=== PATIENT | female | born 1965 | race Caucasian/White ===

== ENCOUNTER 2019-12-11 10:29 | Emergency (ER) | payer BC, SELFPAY ==
[2019-12-11 10:34] VITALS: RESP 17; TEMP 36.5; BMI 25.8
--- NOTE | 2019-12-11 10:34 | ECG_ITS ---
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 Measurements Intervals [place] Rate: 107 P: 64 PA: 151 QRS: 25 QRSD: 91 T: 17 QT: 322 QTc: 431 Interpretive Statements SINUS TACHYCARDIA ABNORMAL RHYTHM ECG No previous ECG available for comparison Electronically Signed On 12-11-2019 19:40:07 CDT by Ana Luisa Morrow M.D. [email or web address] hospitalAdaptive [email or web address], Inc.[facility].[employer]/store/NU/[id number]/[email or web address]/[id number] f
--- NOTE | 2019-12-11 10:34 | XRR_ITS ---
PROCEDURE INFORMATION: Exam: XR Chest, 1 View Exam date and time: 12/11/2019 11:03 AM Age: 54 years old Clinical indication: Chest pain; Type not specified TECHNIQUE: Imaging protocol: XR of the chest Views: 1 view. COMPARISON: No relevant prior studies available. FINDINGS: Lungs: Hyperinflation and mild interstitial prominence. No acute airspace disease. Pleural space: No pleural effusion. Heart/Mediastinum: No cardiomegaly. Bones/joints: Mild degenerative change. XR/XR chest 1V portable [id number] IMPRESSION: Hyperinflation , without acute airspace or pleural disease.
[2019-12-11 11:11] LABS: Basophils % 0.8 %; Eosinophils # 0.1 10^3/uL (0.0-0.8); Eosinophils % 1.3 %; Hematocrit 40.3 % (37.0-47.0); Hemoglobin 13.4 g/dL (11.5-15.3); Lymphocytes # 1.6 10^3/uL (0.8-4.8); Lymphocytes % 31.2 %; Mean Corpuscular HGB Conc 33.3 g/dL (30.0-36.0); Mean Corpuscular Hemoglobin 33.8 pg (28.0-34.0); Mean Corpuscular Volume 101.5 fL (81-99); Mean Platelet Volume 10.2 fL (7.4-10.4); Monocytes # 0.6 10^3/uL (0.2-0.9); Monocytes % 12.1 %; Neutrophils # 2.84 10^3/uL (1.8-7.7); Neutrophils % 54.4 %; Nucleated Red Blood Cells % 0 %; Platelet Count 219 10^3/cmm (130-400); Red Blood Count 3.97 10^6/uL (4.1-5.3); White Blood Count 5.2 10^3/uL (4.0-10.0)
[2019-12-11 11:26] LABS: INR 0.86 (0.8-1.2)
[2019-12-11 11:31] LABS: Alanine Aminotransferase 19 U/L (0-33); Albumin Level 4.4 g/dL (3.5-5.2); Alkaline Phosphatase 121 IU/L (35-105); Aspartate Amino Transferase 46 U/L (0-32); Blood Urea Nitrogen 19 mg/dL (6-20); Calcium 9.8 mg/dL (8.5-10.5); Carbon Dioxide 26 mmol/L (22-29); Chloride 96 mmol/L (98-107); Globulin 2.8 g/dL (1.3-4.6); Glucose 128 mg/dL (65-115); Lipase 48 U/L (13-60); Osmolality Calculated 286 mOsm/kg (285-295); Sodium 136 mmol/L (136-145); Total Bilirubin 0.8 mg/dL (0.15-1.2); Total Protein 7.2 g/dL (6.6-8.7)
[2019-12-11 11:33] LABS: Troponin(5th) Baseline 7 ng/L (0-10)
[2019-12-11 11:35] LABS: Anion Gap 18.1 (5-19); Potassium 4.1 mmol/L (3.5-5.1)
--- NOTE | 2019-12-11 12:34 | ECG_ITS ---
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 Measurements Intervals [place] Rate: 93 P: 60 MS: 153 QRS: 20 QRSD: 93 T: 10 QT: 341 QTc: 425 Interpretive Statements SINUS RHYTHM Compared to ECG 12/11/2019 10:52:24 Sinus tachycardia no longer present Electronically Signed On 12-11-2019 19:52:39 CDT by Ana Luisa Morrow M.D. [email or web address]smer[facility] biloxiActivePathlicking memorial hospitalInnov[facility]/store/NU/[id number] f
[2019-12-11 13:48] LABS: Troponin 5 2HR 6.98 ng/L (0-10)
[2019-12-11 13:57] LABS: Troponin 5 2HR Delta -0.02 ABS# (0-10)
[2019-12-11 14:13] VITALS: BP 144/81; PULSE 96; RESP 18; O2SAT 98
--- NOTE | 2019-12-11 14:18 | ED_ITS ---
HPI - Chest Pain General: Chief Complaint: Chest Pain Stated Complaint: CP Time Seen by Provider: 12/11/19 10:33 History of Present Illness: HPI narrative: This patient is a 54-year-old female who has moved to the area within the last year or so. She has no medical records here. She presents with multiple complaints including chest pain, trouble breathing, tunnel vision. She feels that there is definitely something wrong with her. She was admitted once previously for chest pain and said she had a stress test that was normal. She does take blood pressure medication and an aspirin a day. She also takes allopurinol for gout. She has had a few surgeries but still has her gallbladder and appendix. She has never had a cardiac cath. MD complaint: chest pain Onset (ago): day(s) Timing of current episode: episodic Prior episodes: Yes Onset: during rest Pain radiation: none Severity: moderate Quality: tightness Relieving factors: nothing Exacerbating factors: nothing Associated symptoms: Reports dyspnea and nausea Review of Systems Eyes: Reports: change in vision (Tunnel vision) Resp: Reports: dyspnea GI: Reports: nausea Neuro: Reports: numbness in extremities (Right arm) and weakness in extremities (Right arm) [facility] ED PFSH: Medical History (Updated 12/11/19 @ 15:52 by Mariposa Lopez MD) Gout Hypertension Physical Exam Const: COMMON NORMALS: no acute distress, patient oriented x3, no limitations and alert GENERAL APPEARANCE: cooperative and comfortable HENMT: HEAD & SCALP: normal to inspection FACE & SINUS: normal facial exam Eye: GENERAL EYE: appearance normal, both eyes and all related structures Neck/C-Spine: COMMON NORMALS: supple, no meningeal signs and no JVD Chest: COMMONS NORMALS: normal inspection of the chest Resp: COMMON NORMALS: normal respiratory effort, No use of accessory muscles and clear to auscultation bilaterally AUSCULTATION: clear to auscultation bilaterally Cardio: COMMON NORMALS: no JVD, regular rate, regular rhythm and No murmurs present (Cardio) RATE: regular rate RHYTHM: regular rhythm GI: COMMON NORMALS: Normal to inspection, nondistended, normoactive bowel sounds present, Soft to palpation and non-tender INSPECTION: Yes normal to inspection AUSCULTATION: Yes normoactive bowel sounds PALPATION: Yes Soft to palpation Back/Pelvis: COMMON NORMALS: thoracic and lumbar spine normal to inspection Extremity: COMMON NORMALS: normal to inspection Neuro: COMMON NORMALS: patient oriented x3, moves all extremities, no focal motor deficits and no sensory deficits noted SENSORIUM/ORIENTATION: Yes alert MENINGEAL SIGNS: Yes no meningeal signs Psych: COMMON NORMALS: mental status grossly normal, cooperative and normal a ffect Skin: COMMON NORMALS: no rashes or lesions noted and turgor normal GENERAL SKIN EXAM: no rashes or lesions noted and turgor normal Course ED course: This patient presents with multiple vague complaints over the past couple of weeks. Her work-up is unremarkable. She does have a primary care physician here at [facility]. She has been seeing Randee Klein. She has not seen a pad tufter. We discussed that her work-up here was normal and I recommended that she follow-up with primary care and with cardiology. I gave her referral for cardiology. Vital Signs: Vital signs: Vital Signs Temperature 97.7 F 12/11/19 10:34 Pulse Rate 96 12/11/19 14:13 Respiratory Rate 18 12/11/19 14:13 Blood Pressure 144/81 12/11/19 14:13 Pulse Oximetry 98 12/11/19 14:13 MDM - Chest Pain Lab Data: Labs: Lab Results 12/11/19 12/11/19 12/11/19 Range/Units 11:04 11:04 11:04 WBC 5.2 (4.0-10.0) 10^3/ uL RBC 3.97 L (4.1-5.3) 10^6/u L Hgb 13.4 (11.5-15.3) g/dL Hct 40.3 (37.0-47.0) % MCV 101.5 H (81-99) fL MCH 33.8 (28.0-34.0) pg MCHC 33.3 (30.0-36.0) g/dL RDW 12.0 L (12.1-15.1) % Plt Count 219 (130-400) 10^3/c mm MPV 10.2 (7.4-10.4) fL Neut % (Auto) 54.4 % Lymph % (Auto) 31.2 % [place] % (Auto) 12.1 % Eos % (Auto) 1.3 % Baso % (Auto) 0.8 % Neut # (Auto) 2.84 (1.8-7.7) 10^3/u L Lymph # (Auto) 1.6 (0.8-4.8) 10^3/u L [place] # (Auto) 0.6 (0.2-0.9) 10^3/u L Eos # (Auto) 0.1 (0.0-0.8) 10^3/u L Baso # (Auto) 0.0 (0.0-0.1) 10^3/u L Nucleated RBC % (a uto) 0 % Nucleated RBCs # 0.0 /100WBC PT 11.90 L (12.1-14.9) SECO NDS INR 0.86 (0.8-1.2) Sodium 136 (136-145) mmol/L Potassium 4.1 (3.5-5.1) mmol/L Chloride 96 L (98-107) mmol/L Carbon Dioxide 26 (22-29) mmol/L Anion Gap 18.1 (5-19) BUN 19 (6-20) mg/dL Creatinine 0.9 (0.5-0.9) mg/dL GFR Calculation 65.0 L (90-130) mL/min Glucose 128 H (65-115) mg/dL Calculated Osmolal ity 286 (285-295) mOsm/k g Calcium 9.8 (8.5-10.5) mg/dL Total Bilirubin 0.8 (0.15-1.2) mg/dL AST 46 H (0-32) U/L ALT 19 (0-33) U/L Alkaline Phosphata se 121 H (35-105) IU/L Troponin T Baselin e (0-10) ng/L Troponin T 120 Min [place] (0-10) ng/L Delta Troponin T (0-10) ABS# Total Protein 7.2 (6.6-8.7) g/dL Albumin 4.4 (3.5-5.2) g/dL Globulin 2.8 (1.3-4.6) g/dL Lipase 48 (13-60) U/L 12/11/19 12/11/19 Range/Units 11:04 13:05 WBC (4.0-10.0) 10^3/ uL RBC (4.1-5.3) 10^6/u L Hgb (11.5-15.3) g/dL Hct (37.0-47.0) % MCV (81-99) fL MCH (28.0-34.0) pg MCHC (30.0-36.0) g/dL RDW (12.1-15.1) % Plt Count (130-400) 10^3/c mm MPV (7.4-10.4) fL Neut % (Auto) % Lymph % (Auto) % [place] % (Auto) % Eos % (Auto) % Baso % (Auto) % Neut # (Auto) (1.8-7.7) 10^3/u L Lymph # (Auto) (0.8-4.8) 10^3/u L [place] # (Auto) (0.2-0.9) 10^3/u L Eos # (Auto) (0.0-0.8) 10^3/u L Baso # (Auto) (0.0-0.1) 10^3/u L Nucleated RBC % (a uto) % Nucleated RBCs # /100WBC PT (12.1-14.9) SECO NDS INR (0.8-1.2) Sodium (136-145) mmol/L Potassium (3.5-5.1) mmol/L Chloride (98-107) mmol/L Carbon Dioxide (22-29) mmol/L Anion Gap (5-19) BUN (6-20) mg/dL Creatinine (0.5-0.9) mg/dL GFR Calculation (90-130) mL/min Glucose (65-115) mg/dL Calculated Osmolal ity (285-295) mOsm/k g Calcium (8.5-10.5) mg/dL Total Bilirubin (0.15-1.2) mg/dL AST (0-32) U/L ALT (0-33) U/L Alkaline Phosphata se (35-105) IU/L Troponin T Baselin e 7 (0-10) ng/L Troponin T 120 Min [place] 6.98 (0-10) ng/L Delta Troponin T -0.02 L (0-10) ABS# Total Protein (6.6-8.7) g/dL Albumin (3.5-5.2) g/dL Globulin (1.3-4.6) g/dL Lipase (13-60) U/L Discharge Plan Discharge Patient Disposition: Home Clinical Impression: Chest pain Qualifiers: Chest pain type: unspecified Qualified Code(s): R07.9 - Chest pain, unspecified Condition: Stable Prescriptions: No Action Multiple Vitamins Tablet 1 tab PO DAILY RF: 0 hydrochlorothiazide 50 mg tablet See Rx Instructions .ROUTE .COMPLEX RF: 0 metoprolol succinate 200 mg tablet extended release 24 hr 200 mg PO DAILY RF: 0 lisinopril 20 mg tablet 20 mg PO DAILY RF: 0 aspirin 81 mg Tablet,Chewable 81 mg PO DAILY RF: 0 allopurinol 300 mg tablet 300 mg PO DAILY RF: 0 escitalopram oxalate 10 mg tablet See Rx Instructions .ROUTE .COMPLEX RF: 0 Vitamin D3 125 mcg (5,000 unit) Tablet 125 mcg PO DAILY RF: 0 biotin 1 tab PO DAILY RF: 0 Discharge Orders: Discharge Order (Routine); Ordered 12/11/19 Ordered By: Mariposa Lopez Referrals: Randee Klein PA [Staff Physician] - 1 week Elvira Keita MD [Physician] - 2 weeks Discharge Diet: Usual diet Discharge Activity: Resume usual activity Patient Instructions: Chest Pain (ED) Activity Restrictions/Additional Instructions: Return to the emergency department for any new or worse symptoms. Follow-up with your primary care provider for further evaluation of your symptoms. We have also provided a referral to the pad tufter. 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
== END 2019-12-11 16:12 | disposition home or self-care (01) ==
PROVIDERS: Emergency Provider Emergency Medicine
DX: R07.9 Chest pain, unspecified (principal); Z79.82 Long term (current) use of aspirin; I10 Essential (primary) hypertension
CPT/HCPCS: 12345; 36415; 71045; 80053; 83690; 84484; 85025; 85610; 93005; 99283; 99284

== ENCOUNTER 2020-07-20 10:08 | Outpatient (CLI) | payer BC, SELFPAY ==
--- NOTE | 2020-07-20 10:18 | MM_ITS ---
WS: [id number] BILATERAL SCREENING DIGITAL MAMMOGRAM WITH CAD HISTORY: SCREENING COMPARISON: 12/13/2018 and 12/24/2017 Bilateral CC and MLO views submitted. Computer aided detection analyzed. Breast composition: There are scattered areas of fibroglandular density. No suspicious masses, microc alcifications or architectural distortion. MM/[place] [id number] IMPRESSION: BI-RADS: 1-Negative FOLLOW UP: 1 Year Follow-up
== END 2020-07-20 10:09 | disposition home or self-care (01) ==
LOC: RADSHAW 10:12
PROVIDERS: PCP Physician Assistant; Visit Provider Physician Assistant
DX: Z12.31 Encounter for screening mammogram for malignant neoplasm of breast (principal)
CPT/HCPCS: 77067

== ENCOUNTER 2022-01-06 12:31 | Outpatient (CLI) | payer MEDICARE, MEDICAID, SELFPAY ==
--- NOTE | 2022-01-06 12:56 | MM_ITS ---
WS: [id number] BILATERAL 3D TOMOSYNTHESIS DIGITAL SCREENING MAMMOGRAPHY WITH CAD CLINICAL INFORMATION: SCREEN HISTORY: Screening mammogram. No current complaints. COMPARISON: July 20, 2020 TECHNIQUE: Bilateral CC and MLO views. FINDINGS: Scattered fibroglandular densities bilaterally. No suspicious focal mass, asymmetry, calcifications, or architectural distortion. No evidence of malignancy. MM/[id number] IMPRESSION: BI-RADS: 1-Negative FOLLOW UP: 1 Year Follow-up Recommend return to annual screening mammography.
== END 2022-01-06 12:32 | disposition home or self-care (01) ==
PROVIDERS: PCP Physician Assistant; Visit Provider Physician Assistant
DX: Z12.31 Encounter for screening mammogram for malignant neoplasm of breast (principal)
CPT/HCPCS: 77063; 77067

== ENCOUNTER → 2022-01-16 12:21 | Outpatient (BNVA) | payer MEDICARE, MEDICAID, SELFPAY | PROVIDERS: PCP Physician Assistant; Visit Provider Internal Medicine Rheumatology | DX: M10.9 Gout, unspecified (principal); M19.90 Unspecified osteoarthritis, unspecified site; M25.50 Pain in unspecified joint; R76.8 Other specified abnormal immunological findings in serum; M15.9 Polyosteoarthritis, unspecified; Z79.899 Other long term (current) drug therapy; S92.511D Displaced fracture of proximal phalanx of right lesser toe(s), subsequent encounter for fracture with routine healing; X58.XXXD Exposure to other specified factors, subsequent encounter; M77.31 Calcaneal spur, right foot | CPT/HCPCS: 73130; 73630 ==

== ENCOUNTER 2022-01-24 12:31 | Outpatient (CLI) | payer MEDICARE, MEDICAID, SELFPAY ==
--- NOTE | 2022-01-24 13:01 | CT_ITS ---
WS: [id number] CT ABDOMEN PELVIS TECHNIQUE: Contrast-enhanced CT of the abdomen and pelvis with coronal and sagittal reformatted image s. CLINICAL INFORMATION: ASCITES COMPARISON: Ultrasound January 10, 2022 DLP: 1189.[address] scans at [facility] use at least one of these dose optimization techniques: automated e xposure control; mA and/or kV adjustment per patient size (includes targeted exams where dose is matc hed to clinical indication); or iterative reconstruction. FINDINGS: Hepatomegaly with enlargement of the RIGHT hepatic lobe. Diffuse fatty infiltration liver. Normal spl een. Normal portal vein and splenic vein. Normal GE junction. Fat-containing umbilical hernia. Normal sigmoid colon. No evidence of high-grade small or large bowel obstruction. Cecal constipation. Low-lying cecum in the pelvis midline. Appendix is normal. Normal sigmoid colon. Lung bases are well aerated. Prior hysterectomy. CT/CT abdomen pelvis w con* [id number] IMPRESSION: 1. Hepatomegaly with diffuse fatty infiltration liver. Recommend correlation w ith liver function tests. RIGHT hepatic lobe measures 25.0 cm craniocaudal. 2. Normal size spleen. 3. Normal caliber abdominal aorta. 4. Fat-containing umbilical hernia. 5. Low-lying cecum in the midline lower pelvis with constipation. Normal appen jacob. 6. Prior hysterectomy. 7. No other suspicious findings.
[2022-01-24] MEDS: iohexol 350 mg/mL 100 mL Btl PO (13:07)
[2022-01-24] MEDS: iohexol 350 mg/mL 100 mL Btl IV (14:33)
== END 2022-01-24 12:32 | disposition home or self-care (01) ==
LOC: RAD 12:32
PROVIDERS: PCP Physician Assistant; Visit Provider Physician Assistant
DX: R18.8 Other ascites (principal); R16.0 Hepatomegaly, not elsewhere classified; K46.9 Unspecified abdominal hernia without obstruction or gangrene; K59.00 Constipation, unspecified
CPT/HCPCS: 74177

== ENCOUNTER 2022-02-07 13:56 | Outpatient (CLI) | payer MEDICARE, MEDICAID, SELFPAY ==
--- NOTE | 2022-02-07 14:21 | XR_ITS ---
WS: [id number] DEXA (DUAL ENERGY X-RAY ABSORPTIOMETRY) Bone mineral density was performed using a OrangeHRM machine. HISTORY: POSTMENOPAUSAL COMPARISON: None available. Lumbar spine BMD (L1-L4): 1.079 g/cm2 T score: -0.8 Z score: -0.6 Total hip BMD: Left: 0.936 g/cm2. T score: -0.6 Z score: -0.4 Right: 0.930 g/cm2. T score: -0.6 Z score: -0.4 10 year probability of a major osteoporotic fracture is 7.7%. XR/XR DEXA axial skeleton* [id number] IMPRESSION: NORMAL BONE MINERAL DENSITY based upon the WHO classification for females.
== END 2022-02-07 13:57 | disposition home or self-care (01) ==
LOC: RAD 13:57
PROVIDERS: PCP Physician Assistant; Visit Provider Physician Assistant
DX: Z78.0 Asymptomatic menopausal state (principal)
CPT/HCPCS: 77080

== ENCOUNTER 2022-03-10 13:28 | Outpatient (CLI) | payer MEDICARE, MEDICAID, SELFPAY ==
[2022-03-10 14:26] LABS: Basophils # 0.1 10^3/uL (0.0-0.1); Basophils % 1.1 %; Eosinophils # 0.3 10^3/uL (0.0-0.8); Eosinophils % 5.3 %; Hematocrit 38.7 % (37.0-47.0); Hemoglobin 12.7 g/dL (11.5-15.3); Lymphocytes % 36.1 %; Mean Corpuscular HGB Conc 32.8 g/dL (30.0-36.0); Mean Corpuscular Volume 103.5 fl (81-99); Mean Platelet Volume 10.4 fL (7.4-10.4); Monocytes # 0.5 10^3/uL (0.2-0.9); Monocytes % 9.3 %; Neutrophils # 2.62 10^3/uL (1.8-7.7); Nucleated Red Blood Cells % 0 %; Platelet Count 207 10^3/cmm (130-400); Red Blood Count 3.74 10^6/uL (4.1-5.3); Red Cell Distribution Width 12.7 % (12.1-15.1); White Blood Count 5.5 10^3/uL (4.0-10.0)
[2022-03-10 14:44] LABS: Alanine Aminotransferase 16 U/L (0-33); Albumin Level 3.9 g/dL (3.5-5.2); Alkaline Phosphatase 114 U/L (35-105); Aspartate Amino Transferase 39 U/L (0-32); C Reactive Protein 19.1 mg/L (0.0-4.9); Globulin 3.2 g/dL (1.3-4.6); Total Bilirubin 0.4 mg/dL (0.15-1.2); Total Protein 7.1 g/dL (6.6-8.7)
== END 2022-03-10 13:29 | disposition home or self-care (01) ==
LOC: LAB 13:32
PROVIDERS: PCP Physician Assistant; Visit Provider Internal Medicine Rheumatology
DX: M19.90 Unspecified osteoarthritis, unspecified site (principal); Z79.899 Other long term (current) drug therapy
CPT/HCPCS: 36415; 80076; 82565; 85025; 86140

== ENCOUNTER → 2022-05-05 09:03 | Outpatient (BNVA) | payer MEDICARE, MEDICAID, SELFPAY | PROVIDERS: PCP Physician Assistant; Visit Provider Podiatrist Foot & Ankle Surgery | DX: M20.11 Hallux valgus (acquired), right foot (principal); R76.8 Other specified abnormal immunological findings in serum; M19.071 Primary osteoarthritis, right ankle and foot | CPT/HCPCS: 73630 ==

== ENCOUNTER 2022-05-08 06:57 | Day surgery (SDC) | payer MEDICARE, MEDICAID, SELFPAY ==
[2022-05-05 14:55] VITALS: BMI 26.6
--- NOTE | 2022-05-05 15:17 | SUR.PREOP ---
1500-At end of telephone pre-op when I asked patient if she had any questions she stated yes she had about 15. Stated she was reviewing information in the surgery packet the clinic gave her and started asking questions about the soap to use, post op questions, about the procedure if there would be mesh. I advised her to use dial soap prior to procedure and that after the surgery we would print post-operative instructions for her. As far as regarding procedural questions those are things she would need to talk to her surgeon about and advised her to make a list of those and she would see him prior to the surgery. Patient was not pleased with this as she doesn't know what to research over the weekend. Patient was advised all questions were good questions but needed to be followed up with her surgeon.
[2022-05-08] VITALS (15 sets, daily range): BP systolic 119–154; BP diastolic 73–92; PULSE 89–100; RESP 16–20; TEMP 36.3–37.1; O2SAT 92–98
[2022-05-08] MEDS: sodium chloride 0.9% 1,000 ML 30 ML IV (07:22)
--- NOTE | 2022-05-08 09:34 | W.PM.OPSUD ---
Surgery/Procedure H&P Update DATE OF PROCEDURE: May 08, 2022 DATE H&P PERFORMED: 04/12/22 PREOP DIAGNOSIS: ventral hernias PLANNED PROCEDURE: Operation Date: 05/08/22 08:30 Proposed Procedures p lap repair of ventral hernias w mesh [id number],K42.8(Not Applicable) - Arben Rutherford DO
[2022-05-08] MEDS: ceFAZolin 2,000 MG in sodium chloride 0.9% (plus) 50 ML 100 MG IV (09:55)
--- NOTE | 2022-05-08 09:56 | ANES.PREANE2 ---
Pre-Anesthetic Assessment Height/Weight: Height 1.68 m Weight 74.843 kg Temp Pulse Resp BP Pulse Ox O2 Del Method 97.4 F L 100 18 154/90 98 05/08/22 07:11 05/08/22 07:11 05/08/22 07:11 05/08/22 07:11 05/08/22 07:11 05/08/22 07:11 Preop Diagnosis: ventral hernias Operation Date: 05/08/22 08:30 Proposed Procedures p lap repair of ventral hernias w mesh [id number],K42.8(Not Applicable) - Arben Rutherford DO Familial anesthetic complications: none Was Beta Alvin taken within 24 hours: N/A Was Clonidine taken within 24 hours: N/A Last intake: Intake Last Liquid Date 05/07/22 Last Liquid Time 22:00 Last Solid Date 05/07/22 Last Solid Time 21:00 Social No alcohol and No tobacco Exam alert, oriented x 3, clear to auscultation bilaterally and regular rate & rhythm Airway Submandibular: within normal limits Cervical ROM: within normal limits Mallampati: Class II Dentition: full CV/HEM Hypertension Metabolic chronic steroid Musc/skel Gouty arthritis, Lupus Anesthetic Plan ASA status: 3 Anesthesia: General and Regional (specify below) (rectus sheath blk) Medications/Allergies Home Medications Medication Instructions Recorded Confirmed Last Taken Type biotin 1 tab PO DAILY 12/11/19 05/08/22 05/07/22 History multivitamin (Multiple Vitamins 1 tab PO DAILY 12/11/19 05/08/22 05/07/22 History tablet) prednisone 10 mg tablet See Rx Instructions PO .COMPLEX 03/13/22 05/08/22 05/07/22 Rx PRN joint pain #30 tabs allopurinol 300 mg tablet 300 mg PO DAILY #30 tabs 04/12/22 05/08/22 05/08/22 Rx amlodipine 10 mg tablet 10 mg PO DAILY 04/12/22 05/08/22 05/08/22 History omeprazole 40 mg capsule,delayed 40 mg PO DAILY 04/12/22 05/08/22 05/06/22 History release triamcinolone acetonide 0.1 % 1 applic topical PRN PRN Rash 04/12/22 05/08/22 Unknown History topical cream folic acid 1 mg tablet 1 mg PO DAILY 05/05/22 05/08/22 05/07/22 History methotrexate sodium 2.5 mg tablet 25 mg PO 6XD 05/05/22 05/08/22 05/02/22 History Allergies Allergy/AdvReac Type Severity Reaction Status Date / Time clarithromycin [From Biaxin] Allergy ADR-Nausea Verified 05/08/22 07:08 Current Medications Generic Name Dose Route Start Last Admin Trade Name Freq PRN Reason Stop Dose Admin Sodium Chloride 1,000 mls @ 30 mls/hr 05/08/22 07:15 05/08/22 07:22 Sodium Chloride 0.9% IV 05/09/22 07:14 30 mls/hr .Q24H MOLLY Administration PFSH Anesthesia Medical History Gout High risk medication use Hypertension Immunization counseling Inflammatory arthritis Positive ANDREW (antinuclear antibody) 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
[2022-05-08] MEDS: lidocaine-epi 2% PF 1:200,000 20 mL SDV XX (10:48)
--- NOTE | 2022-05-08 11:02 | PM.OP ---
Operative Report Date of procedure: May 08, 2022 Pre-op diagnosis: Preop Diagnosis ventral hernias Post-op diagnosis: other (3 ventral hernias) Procedure done: Laparoscopic repair of 3 ventral hernias with mesh Implants: 8 inch round Ventralight mesh Specimens removed/disposition: Hernia sac Surgeon: Dr. Arben Rutherford DO Anesthesia: General Estimated blood loss (mL): 10 Complications: None apparent Brief History: This is a very pleasant 56-year-old female who presented to the office with an umbilical hernia and a second ventral hernia just superior to this. Laparoscopic repair with mesh was indicated. The risks and benefits were explained and documented. Procedure: Patient was wheeled into the operative room and placed on the OR table in a supine position. Abdomen was inspected prepped and draped in usual sterile fashion. Time-out was performed and all present were in agreement. A 15 blade scalp was used to make a 5 millimeter incision left upper quadrant. A Veress needle was placed into the incision and intra-abdominal insufflation was brought to 15 millimeters of mercury. A 12 millimeter trocar was placed into the left lower quadrant. The energy but device was then used to cut out the hernia sac all the way up through the falciform ligament. 3 total hernias were found: 1 umbilical and 2 ventral just cephalad to this.. An 8 inch ventral light mesh was placed into the abdomen and brought up through the anterior abdominal wall in the center of the 3 midline hernias using an the [place]-Adolfo. The mesh was then tacked in place in a double crown fashion. The skeleton of the mesh was removed via the left lower quadrant. The hernia sac was then removed from the abdomen via the left lower quadrant. The left lower quadrant port site was closed with an 0 Vicryl suture in a [place]-Adolfo in a esaldm-nb-waqtp fashion. Incisions were closed with 4 O Monocryl in a subcuticular interrupted fashion. Skin glue was applied. A dressing that included cotton balls and a Tegaderm was placed over the umbilicus. Patient tolerated the procedure well.
--- NOTE | 2022-05-08 11:25 | ANES.PROC ---
Anesthesia Procedures Procedure/Date: 05/08/22 Nerve Block ^: Nerve Block 1: Main Anesthesia: general anesthesia Time Out Performed: Yes Consent: from patient, risks and benefits reviewed and patient agrees to proceed Nerve block location: other (bilateral rectus sheath) Anesthesia monitors applied: pulse oximetry, EKG, BP cuff and oxygen Nerve block position: supine Anesthetic Used: ropivicaine 0.5% Amount of anesthesia used (mL): 20 Ultrasound used to: recognize landmarks Nerve Stimulator Used?: No Interscalene/Femoral BLK: 2 stimuplex 22 g needle used for position and inplane approach Injection: neg aspiration of heme Patient Tolerated Procedure: well Complications: none
[2022-05-08] MEDS: ondansetron 2 mg/ML SDV 2 mL 4 MG IVP (11:30)
[2022-05-08] MEDS: HYDROcodone-acetaminophen 5-325 mg Tablet 1 TAB PO (12:13)
--- NOTE | 2022-05-08 15:15 | ANE.PACU2 ---
Inpatient post-anesthesia follow up: Airway intact: Yes Vital signs: Temperature 98.8 F Pulse Rate 90 Respiratory Rate 18 Blood Pressure 119/73 Pulse Oximetry 93 Oxygen Delivery Me thod Room Air Oxygen Flow Rate 4 Fraction of Inspir ed Oxygen Hydration adequate: Yes Nausea and vomiting: Yes Pain level: 2 Mental status: Baseline
== END 2022-05-08 13:33 | disposition home or self-care (01) ==
PROVIDERS: PCP Physician Assistant; Visit Provider Surgery
PROC: 0WQF4ZZ Repair Abdominal Wall, Percutaneous Endoscopic Approach (ICD-10-PCS; CPT 49593; principal; 2022-05-08 08:20)
DX: K43.9 Ventral hernia without obstruction or gangrene (principal); I10 Essential (primary) hypertension; Z79.52 Long term (current) use of systemic steroids; Z79.82 Long term (current) use of aspirin
CPT/HCPCS: 49593; 88302; C1781; J0690; J1100; J1200; J2250; J2405; J2704; J2795; J3010; J3490; J7030

== ENCOUNTER 2022-05-24 07:04 | Outpatient (CLI) | payer MEDICARE, MEDICAID, SELFPAY ==
[2022-05-24 07:35] LABS: Basophils % 0.6 %; Eosinophils # 0.2 10^3/uL (0.0-0.8); Hematocrit 38.2 % (37.0-47.0); Hemoglobin 12.4 g/dL (11.5-15.3); Lymphocytes # 1.3 10^3/uL (0.8-4.8); Lymphocytes % 26.3 %; Mean Corpuscular HGB Conc 32.5 g/dL (30.0-36.0); Mean Corpuscular Hemoglobin 34.3 pg (28.0-34.0); Mean Corpuscular Volume 105.5 fl (81-99); Mean Platelet Volume 10.3 fL (7.4-10.4); Monocytes # 0.5 10^3/uL (0.2-0.9); Monocytes % 9.1 %; Neutrophils # 3.03 10^3/uL (1.8-7.7); Neutrophils % 59.8 %; Nucleated Red Blood Cells % 0 %; Platelet Count 185 10^3/cmm (130-400); Red Blood Count 3.62 10^6/uL (4.1-5.3); Red Cell Distribution Width 13.9 % (12.1-15.1); White Blood Count 5.1 10^3/uL (4.0-10.0)
[2022-05-24 08:02] LABS: Alanine Aminotransferase 14 U/L (0-33); Albumin Level 4.1 g/dL (3.5-5.2); Alkaline Phosphatase 108 U/L (35-105); Aspartate Amino Transferase 33 U/L (0-32); C Reactive Protein 15.5 mg/L (0.0-4.9); Globulin 2.9 g/dL (1.3-4.6); Glomerular Filtration Rate 86.2 mL/min (90-130); Total Bilirubin 0.8 mg/dL (0.15-1.2); Uric Acid 6.6 mg/dL (2.4-5.7)
== END 2022-05-24 07:05 | disposition home or self-care (01) ==
LOC: LAB 07:07
PROVIDERS: PCP Physician Assistant; Visit Provider Internal Medicine Rheumatology
DX: M19.90 Unspecified osteoarthritis, unspecified site (principal); Z79.899 Other long term (current) drug therapy; M10.9 Gout, unspecified
CPT/HCPCS: 36415; 80076; 82565; 84550; 85025; 86140

== ENCOUNTER → 2022-05-24 | Day surgery (SDC) | payer MEDICARE, MEDICAID, SELFPAY ==
[2022-05-24 08:01] LABS: Anion Gap 20.8 (5-19); Blood Urea Nitrogen 14 mg/dL (6-20); Carbon Dioxide 23 mmol/L (22-29); Chloride 98 mmol/L (98-107); Glomerular Filtration Rate 86.2 mL/min (90-130); Glucose 116 mg/dL (65-115); Osmolality Calculated 287 mOsm/kg (285-295); Potassium 3.8 mmol/L (3.5-5.1); Sodium 138 mmol/L (136-145)
[2022-05-24 12:19] VITALS: BMI 25.8
== END ==
PROVIDERS: Anesthesiology; PCP Physician Assistant; Visit Provider Podiatrist Foot & Ankle Surgery
DX: Z01.818 Encounter for other preprocedural examination (principal)
CPT/HCPCS: 36415; 80048

== ENCOUNTER → 2022-05-30 11:04 | Outpatient (BNVA) | payer MEDICARE, MEDICAID, SELFPAY | PROVIDERS: PCP Physician Assistant; Visit Provider Surgery | DX: Z98.890 Other specified postprocedural states (principal); Z87.19 Personal history of other diseases of the digestive system | CPT/HCPCS: 99024 ==

== ENCOUNTER 2022-06-30 09:29 | Outpatient (CLI) | payer MEDICARE, MEDICAID, SELFPAY ==
[2022-06-30 11:05] LABS: 25 Hydroxy Vitamin D 37 ng/mL (30-100); Ferritin 314 ng/mL (15-150); Folate Level 12.8 ng/mL (4.8-37.3); Iron 94 ug/dL (37-145); Magnesium 1.5 mg/dL (1.7-2.3); Percent Saturation 28.4 % (20-50); Thyroid Stimulating Hormone 5.98 uIU/mL (0.27-4.20); Total Iron Binding Capacity 330 mcg/dl; Unsaturated Iron Binding 236 ug/dL (112-347); Vitamin B12 425 pg/mL (232-1245)
[2022-06-30 11:46] LABS: Free T4 Free Thyroxine 1.07 ng/dL (0.82-1.77)
[2022-07-05 11:46] LABS: Zinc Level, Serum or Plasma 76 mcg/dL (60-130)
== END 2022-06-30 09:30 | disposition home or self-care (01) ==
LOC: LAB 09:34
PROVIDERS: PCP Physician Assistant; Visit Provider Nurse Practitioner Family
DX: L60.9 Nail disorder, unspecified (principal); L65.9 Nonscarring hair loss, unspecified; M32.9 Systemic lupus erythematosus, unspecified; R53.83 Other fatigue; I10 Essential (primary) hypertension; Z79.899 Other long term (current) drug therapy; Z87.19 Personal history of other diseases of the digestive system; Z98.890 Other specified postprocedural states
CPT/HCPCS: 36415; 82306; 82607; 82728; 82746; 83540; 83550; 83735; 84439; 84443; 84630

== ENCOUNTER 2022-08-01 06:27 | Outpatient (CLI) | payer MEDICARE, MEDICAID, SELFPAY ==
--- NOTE | 2022-08-01 06:30 | USCV_ITS ---
Alysa Goodman Age: 57 Gender: F : 1965 Exam Date: 08/01/2022 06:36 Ordering Phys: Marco Quintero MD Technologist: CT Exam Location: [facility] Indication: lupus, drug use BP: 149 / 83 HR: 105 Rhythm: Sinus Technical Quality: Adequate MEASUREMENTS (Male / Female) Normal Values 2D ECHO LV Diastolic Diameter PLAX 4.3 cm 4.2 - 5.9 / 3.9 - 5.3 cm LV Systolic Diameter PLAX 2.2 cm IVS Diastolic Thickness 1.0 cm 0.6 - 1.0 / 0.6 - 0.9 cm IVS Systolic Thickness 1.4 cm LVPW Diastolic Thickness 1.2 cm 0.6 - 1.0 / 0.6 - 0.9 cm LVPW Systolic Thickness 1.5 cm LVOT Diameter 2.1 cm LV Ejection Fraction 2D Teich 80.7 % LV Ejection Fraction MOD 2C 64.7 % LV Ejection Fraction 2C AL 64.5 % LA Diameter 3.9 cm Aorta at Sinotubular Diameter 3.1 cm M-MODE Aortic Annulus Diameter 3.7 cm LA Ao Ratio MM 1.1 MV E Point Septal Separation 0.8 cm DOPPLER AV Peak Velocity 161.0 cm/s LVOT Peak Velocity 143.0 cm/s AV Area Cont Eq vti 4.7 cm squared AV Area Cont Eq pk 3.2 cm squared MV Area PHT 5.0 cm squared Mitral E to A Ratio 0.8 MV E' Velocity 61.0 cm/s TR Peak Velocity 173.0 cm/s TR Peak Gradient 12.0 mmHg TV Peak E Velocity 89.0 cm/s Right Atrial Pressure 3.0 mmHg Pulmonary Artery Systolic Pressu 15.0 mmHg RV Acceleration Time 0.1 s FINDINGS Left Ventricle Normal left ventricular size and systolic function, EF 58 %. No regional wall motion abnormalities. Grade I/IV diastolic dysfunction (abnormal relaxation filling pattern), normal to mildly elevated filling pressures. Right Ventricle The right ventricle is normal in size and function. Right Atrium The right atrium is normal in size. Left Atrium The left atrium is normal in size. Mitral Valve Mild mitral annular calcification. Thickened mitral valve. Aortic Valve The aortic valve leaflet morphology could not be delineated well. No gross abnormalities were noted Tricuspid Valve Trace tricuspid valve regurgitation. Pulmonic Valve Pulmonic valve not well visualized. Pericardium Normal pericardium without effusion. Aorta Normal aortic annulus size. IVC The inferior vena cava appears normal. CONCLUSIONS Normal left ventricular size and systolic function, EF 58 %. No regional wall motion abnormalities. Grade I/IV diastolic dysfunction (abnormal relaxation filling pattern), normal to mildly elevated filling pressures. Mild mitral annular calcification. Thickened mitral valve. Trace tricuspid valve regurgitation. There is no pericardial effusion. No intracardiac masses. Suboptimal study because of the poor ultrasonic window No similar previous studies are available for comparison Dr Ana Luisa Morrow MD [facility] (Electronically Signed) Final Date: 03 Aug 2022 09:07 S
[2022-08-01 09:18] VITALS: PULSE 100; RESP 18; O2SAT 97
[2022-08-01] MEDS: albuterol 2.5 mg/3 mL Neb INHALATION (09:18)
[2022-08-01 09:23] VITALS: PULSE 105
== END 2022-08-01 06:28 | disposition home or self-care (01) ==
LOC: RAD 06:29
PROVIDERS: PCP Physician Assistant; Visit Provider Internal Medicine Rheumatology
DX: M19.90 Unspecified osteoarthritis, unspecified site (principal); R76.8 Other specified abnormal immunological findings in serum; Z79.899 Other long term (current) drug therapy
CPT/HCPCS: 71046; 93306; 94060; 94726; 94729; 99214; J7613

== ENCOUNTER → 2022-09-14 13:02 | Outpatient (BNVA) | payer MEDICARE, MEDICAID, SELFPAY | PROVIDERS: PCP Physician Assistant; Referring Provider Physician Assistant; Visit Provider Internal Medicine | DX: E03.8 Other specified hypothyroidism (principal); R63.5 Abnormal weight gain; I10 Essential (primary) hypertension; Z68.32 Body mass index [BMI] 32.0-32.9, adult; Z79.890 Hormone replacement therapy | CPT/HCPCS: 99204 ==

== ENCOUNTER 2022-09-18 15:45 | Outpatient (CLI) | payer MEDICARE, MEDICAID, SELFPAY | END 2022-09-18 15:46 | disposition home or self-care (01) | LOC: RT 15:45 | PROVIDERS: PCP Physician Assistant; Visit Provider Internal Medicine Rheumatology | DX: Z79.899 Other long term (current) drug therapy (principal) | CPT/HCPCS: J7613 ==

== ENCOUNTER → 2022-10-09 14:16 | Outpatient (BNVA) | payer MEDICARE, MEDICAID, SELFPAY | PROVIDERS: PCP Physician Assistant; Visit Provider Internal Medicine Rheumatology | DX: M19.90 Unspecified osteoarthritis, unspecified site (principal); Z79.899 Other long term (current) drug therapy; R76.8 Other specified abnormal immunological findings in serum; Z71.85 Encounter for immunization safety counseling; R06.02 Shortness of breath | CPT/HCPCS: 99214 ==

== ENCOUNTER 2022-12-19 15:00 | Outpatient (CLI) | payer MEDICARE, MEDICAID, SELFPAY ==
[2022-12-19 16:06] LABS: Basophils # 0.1 10^3/uL (0.0-0.1); Basophils % 1.1 %; Eosinophils # 0.1 10^3/uL (0.0-0.8); Eosinophils % 2.6 %; Hematocrit 40.4 % (36-47); Lymphocytes # 1.9 10^3/uL (0.8-4.8); Lymphocytes % 41.2 %; Mean Corpuscular HGB Conc 33.4 g/dL (30-55); Mean Corpuscular Hemoglobin 35.5 pg (27-33); Mean Corpuscular Volume 106.3 fl (85-98); Monocytes # 0.7 10^3/uL (0.2-0.9); Monocytes % 14.3 %; Neutrophils # 1.83 10^3/uL (1.8-7.7); Neutrophils % 40.4 %; Nucleated Red Blood Cells % 0 %; Platelet Count 176 10^3/cmm (157-399); Red Cell Distribution Width 13.2 % (12.1-15.1); White Blood Count 4.54 10^3/uL (3.29-11.43)
[2022-12-19 16:41] LABS: Alanine Aminotransferase 15 U/L (0-33); Albumin Level 3.7 g/dL (3.5-5.2); Alkaline Phosphatase 104 U/L (35-105); Aspartate Amino Transferase 32 U/L (0-32); C Reactive Protein 109.5 mg/L (0.0-4.9); Globulin 3.1 g/dL (1.3-4.6); Glomerular Filtration Rate 102.7 mL/min (90-130); Total Bilirubin 0.6 mg/dL (0.15-1.2); Total Protein 6.8 g/dL (6.6-8.7)
== END 2022-12-19 15:01 | disposition home or self-care (01) ==
PROVIDERS: PCP Physician Assistant; Visit Provider Internal Medicine Rheumatology
DX: M19.90 Unspecified osteoarthritis, unspecified site (principal)
CPT/HCPCS: 36415; 80076; 82565; 85025; 86140

== ENCOUNTER → 2022-12-26 10:48 | Outpatient (BNVA) | payer MEDICARE, MEDICAID, SELFPAY | PROVIDERS: PCP Physician Assistant; Visit Provider Internal Medicine | DX: E03.8 Other specified hypothyroidism (principal); R63.5 Abnormal weight gain; I10 Essential (primary) hypertension; Z68.32 Body mass index [BMI] 32.0-32.9, adult; Z79.890 Hormone replacement therapy | CPT/HCPCS: 99214 ==

== ENCOUNTER 2023-01-03 13:21 | Outpatient (CLI) | payer MEDICARE, MEDICAID, SELFPAY ==
[2023-01-03 14:08] LABS: Free T4 Free Thyroxine 0.98 ng/dL (0.82-1.77); Thyroid Stimulating Hormone 1.66 uIU/mL (0.27-4.20)
== END 2023-01-03 13:22 | disposition home or self-care (01) ==
LOC: LAB 13:23
PROVIDERS: PCP Physician Assistant; Visit Provider Internal Medicine
DX: E03.8 Other specified hypothyroidism (principal); I10 Essential (primary) hypertension; R63.5 Abnormal weight gain; Z01.818 Encounter for other preprocedural examination; M20.11 Hallux valgus (acquired), right foot; R76.8 Other specified abnormal immunological findings in serum; M19.90 Unspecified osteoarthritis, unspecified site
CPT/HCPCS: 84439; 84443; 99214

== ENCOUNTER → 2023-01-08 13:48 | Outpatient (BNVA) | payer MEDICARE, MEDICAID, SELFPAY | PROVIDERS: PCP Physician Assistant; Visit Provider Internal Medicine Rheumatology | DX: Z79.899 Other long term (current) drug therapy (principal); M19.90 Unspecified osteoarthritis, unspecified site; R76.8 Other specified abnormal immunological findings in serum; Z71.85 Encounter for immunization safety counseling; R06.02 Shortness of breath | CPT/HCPCS: 99214 ==

== ENCOUNTER 2023-01-24 07:00 | Day surgery (SDC) | payer MEDICARE, MEDICAID, SELFPAY ==
[2023-01-24] VITALS (12 sets, daily range): BP systolic 137–165; BP diastolic 86–100; PULSE 104–115; RESP 12–18; TEMP 36.3–36.7; O2SAT 92–98; BMI 30.7
--- NOTE | 2023-01-24 | XR_ITS ---
WS: [id number] INTRAOPERATIVE TECHNIQUE: 2 Spot fluoroscopic images for intraoperative purposes. FLUOROSCOPY TIME: 05636 seconds CLINICAL INFORMATION: RIGHT FOOT, osteotomy FINDINGS: Osteotomy RIGHT first metatarsal with bunion repair. Two Screw fixation across the first metatarsal. IMPRESSION: Images obtained for intraoperative purposes.
[2023-01-24] MEDS: acetaminophen 1,000 MG/100 ML PIGGYBACK 400 MG IV (07:32)
[2023-01-24] MEDS: sodium chloride 0.9% 1,000 ML 30 ML IV (07:32)
[2023-01-24] MEDS: gabapentin 300 mg Capsule PO (07:32)
--- NOTE | 2023-01-24 07:41 | ANES.PREANE2 ---
Pre-Anesthetic Assessment Height/Weight: Height 1.68 m Weight 86.183 kg Temp Pulse Resp BP Pulse Ox O2 Del Method 97.3 F L 110 H 18 153/94 98 Room Air 01/24/23 07:15 01/24/23 07:15 01/24/23 07:15 01/24/23 07:15 01/24/23 07:15 01/24/23 07:15 Preop Diagnosis: Right foot hallux valgus Operation Date: 01/24/23 08:05 Proposed Procedures p minimally invasive 1st Metatarsal head Osteotomy 37149,M20.11(Right) - Brian Cason DPM s Lenin Osteotomy(Right) - Brian Cason DPM Was Beta Alvin taken within 24 hours: N/A Was Clonidine taken within 24 hours: N/A Last intake: Intake Last Liquid Date 01/24/23 Last Liquid Time 00:00 Last Solid Date 01/23/23 Last Solid Time 18:00 Last Intake: 18:00 Social Alcohol (three times weekly) and No tobacco Exam alert and oriented x 3 Airway Submandibular: within normal limits Cervical ROM: within normal limits Mallampati: Class II Dentition: other (#30 extracted - cadaver bone) History/ROS No significant history except as noted Pulmonary None reported CV/HEM Hypertension and Palpitations (history of irregular heart rate-self convert) None reported Hepatic ANDERSEN GI None reported Metabolic Thyroid Disease [facility] Rheumatoid Arthritis (auto immune- takes prednisone) Neuropsych 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) Anesthetic Plan ASA status: 3 Anesthesia: MAC Risk of > 500 ml blood loss (7ml/kg in children): No Medications/Allergies Home Medications Medication Instructions Recorded Confirmed Last Taken Type multivitamin (Multiple Vitamins 1 tab PO DAILY 12/11/19 01/24/23 01/23/23 History tablet) amlodipine 10 mg tablet 10 mg PO DAILY 04/12/22 01/24/23 01/24/23 History prednisone 10 mg tablet See Rx Instructions .Route 12/04/22 01/24/23 1 Day Ago Rx .COMPLEX #30 tabs ~01/22/23 clobetasol 0.05 % topical cream 1 applic topical BID 2 weeks #45 01/08/23 01/24/23 Unknown Rx grams leflunomide 20 mg tablet 20 mg PO DAILY #90 tabs 01/08/23 01/24/2301/24/23 Rx prednisone 5 mg tablet 5 mg PO DAILY #90 tabs 01/08/23 01/24/23 01/24/23 Rx hydrocodone 5 mg-acetaminophen 325 1 tab PO Q6H PRN pain #28 tabs 01/24/23 Unknown Rx mg tablet levothyroxine 25 mcg tablet 25 mcg PO DAILY 01/24/23 01/24/23 01/24/23 History sulfasalazine 500 mg tablet 1,000 mg PO BID 01/24/23 01/24/23 01/24/23 History Allergies Allergy/AdvReac Type Severity Reaction Status Date / Time clarithromycin [From Biaxin] Allergy ADR-Nausea Verified 01/24/23 07:09 Current Medications Generic Name Dose Route Start Last Admin Trade Name Freq PRN Reason Stop Dose Admin Sodium Chloride 1,000 mls @ 30 mls/hr 01/24/23 07:15 01/24/23 07:32 Sodium Chloride 0.9% IV 01/25/23 07:14 30 mls/hr .Q24H MOLLY Administration PFSH Anesthesia Medical History Exertional shortness of breath Gout High risk medication use Hypertension Immunization counseling Inflammatory arthritis Positive ANDREW (antinuclear antibody) 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
--- NOTE | 2023-01-24 07:42 | P.HPUD_ITS ---
Surgery/Procedure H&P Update DATE OF PROCEDURE: January 24, 2023 DATE H&P PERFORMED: 01/03/23 H&P UPDATE INFORMATION: I have reviewed H&P completed within last 30 days, I have examined patient prior to procedure, No changes to prior documentation, Changes to prior documentation as noted here, H&P to be scanned into chart and H&P is in [facility] EMR on date indicated PREOP DIAGNOSIS: Right foot hallux valgus PLANNED PROCEDURE: Operation Date: 01/24/23 08:05 Proposed Procedures p minimally invasive 1st Metatarsal head Osteotomy 78347,M20.11(Right) - Brian Cason DPM s Lenin Osteotomy(Right) - Brian Cason DPM
[2023-01-24] MEDS: ceFAZolin 2,000 MG in sodium chloride 0.9% (plus) 50 ML 100 MG IV (08:01)
[2023-01-24] MEDS: BUPivacaine 0.5% INJ 30 mL INJECTION (08:26)
--- NOTE | 2023-01-24 09:31 | P.BOP_ITS ---
Date of procedure: 01/24/2023 Surgeon name: Dr. Brian Cason D.P.M. Double Reamer Operator(s) name(s): None Procedure(s) performed: Right foot bunionectomy Description of findings: Hallux valgus right foot Estimated blood loss: 10 cc Tourniquet time: 46 minutes Specimen(s) removed: None Post-operative diagnosis: Hallux valgus right foot
[2023-01-24] MEDS: HYDROcodone-acetaminophen 5-325 mg Tablet 1 TAB PO (10:40)
--- NOTE | 2023-01-24 12:20 | ANE.PACU2 ---
Inpatient post-anesthesia follow up: Airway intact: Yes Vital signs: Temperature 98.1 F Pulse Rate 107 Respiratory Rate 16 Blood Pressure 163/100 Pulse Oximetry 94 Oxygen Delivery Me thod Room Air Oxygen Flow Rate Fraction of Inspir ed Oxygen Hydration adequate: Yes Nausea and vomiting: No Pain level: 1 Mental status: Baseline
--- NOTE | 2023-01-24 13:47 | P.OP_ITS ---
Operative Report Date of procedure: January 24, 2023 Pre-op diagnosis: Right foot hallux valgus Post-op diagnosis: Same Post-op findings: Corrected hallux valgus deformity Procedure done: Right foot minimally invasive distal metatarsal osteotomy (bunionectomy) CPT 17383 Implants: 2 beveled headless compression screws fully threaded from [employer] Surgeon: Brian Cason DPM Estimated blood loss: 10 cc 46 minutes Complications: None Findings: See above Procedure: Patient is a 57-year-old female that has a history of right foot hallux valgus. The patient has had the aforementioned chief complaint for some time. Conserv ative treatment measures have been attempted and the patient has opted for surgical intervention at this time. A lengthy discussion regarding the procedure, including risks and complications has been had with the patient and is noted in the recent clinic note. Written and verbal consent have been obtained. All patient questions have been answered to the patient?s satisfaction. No written or verbal guarantees have been given or implied. The patient has been NPO since midnight. The history has been reviewed and the history and physical is current. The signed consent was confirmed and placed in the patient chart. Patient imaging has been reviewed and is consistent with the diagnosis. Under mild sedation, the patient was brought into the operating room and placed on the table in the supine position. IV antibiotics were given by the anesthesia team as preoperative surgical prophylaxis. General sedation was then performed by the anesthesiateam. A pneumatic tourniquet was then placed about the right upper ankle. The operative extremity was then prepped and draped in the usual fashion. The extremity was then elevated and exsanguinated before the tourniquet was inflated to 250 mmHg. After inflation, the following procedure was then performed. Attention was directed to the medial aspect of the right foot where a stab incision was made at the level of the first metatarsal neck. Dissection was carried out using a soft tissue elevator on the dorsal and plantar aspect of the first metatarsal neck in preparation for the osteotomy. Next the minimally invasive bur was inserted into this incision and under visualization via fluoroscopy the osteotomy was made through the first metatarsal neck. The capital fragment was then shifted into a lateral position. This lateral shift reduce the 1?2 intermetatarsal angle. The sesamoids were rotated to the appropriate position. 2 guidewires were then driven from proximal medial to distal lateral to capture the capital fragment. These wires were measured before to beveled short thread fully threaded compression screws from [employer] were inserted over the wires across the osteotomy site and into the capital fragment to maintain fixation. Good positioning of the correction, sesamoids and orthopedic hardware was visualized on C-arm imaging. Based on the reduction it was determined that an Montrose osteotomy would not be necessary. The site was then irrigated with copious amounts sterile saline before attention was directed to closure. Stab incisions were closed with 4-0 nylon and horizontal mattress fashion. Tourniquet was let down and good hyperemic response was noted all digits of the right foot. Incisions were dressed with Xeroform, 4 x 4 gauze, Kerlix, Renny before patient was placed in a postop shoe. The patient tolerated the procedure and anesthesia well and without complication. The patient was transported from the operating room to the recovery room with vital signs stable and vascular status intact to all digits of the right foot. The patient was given both written and verbal instructions to remain weightbearing as tolerated in postop shoe to the operative extremity, to keep dressings/splint clean, dry and intact and to take pain medication as directed. The patient will follow-up in the outpatient setting at their scheduled appointment. The patient was discharged with my personal number and was instructed to call if any questions or issues should arise. They were discharged home once anesthesia criteria was met.
== END 2023-01-24 12:20 | disposition home or self-care (01) ==
PROVIDERS: PCP Physician Assistant; Visit Provider Podiatrist Foot & Ankle Surgery
PROC: (CPT 28296; principal; 2023-01-24 07:55)
PROC: (CPT 28298; 2023-01-24 07:55)
DX: M20.11 Hallux valgus (acquired), right foot (principal); I10 Essential (primary) hypertension; M06.9 Rheumatoid arthritis, unspecified; Z79.52 Long term (current) use of systemic steroids; Z86.73 Personal history of transient ischemic attack (TIA), and cerebral infarction without residual deficits
CPT/HCPCS: 28296; 73620; 76000; C1713 ×2; J0131; J0690; J1100; J1170; J2250; J2405; J2704; J3010; J3490; J7030

== ENCOUNTER 2023-02-05 13:49 | Outpatient (CLI) | payer MEDICARE, MEDICAID, SELFPAY ==
--- NOTE | 2023-02-05 14:00 | MM_ITS ---
WS: [id number] BILATERAL 3D TOMOSYNTHESIS DIGITAL SCREENING MAMMOGRAPHY WITH CAD CLINICAL INFORMATION: SCREENING HISTORY: Screening mammogram. No current complaints. COMPARISON: 01/06/2022 TECHNIQUE: Bilateral CC and MLO views. FINDINGS: Scattered fibroglandular densities bilaterally. No suspicious focal mass, asymmetry, calcifications, or architectural distortion. No evidence of malignancy. IMPRESSION: MM/[place] [id number] BI-RADS: 1-Negative FOLLOW UP: 1 Year Follow-up Recommend return to annual screening mammography.
== END 2023-02-05 13:50 | disposition home or self-care (01) ==
LOC: RAD 13:50
PROVIDERS: PCP Physician Assistant; Visit Provider Family Medicine
DX: Z12.31 Encounter for screening mammogram for malignant neoplasm of breast (principal)
CPT/HCPCS: 77063; 77067

== ENCOUNTER → 2023-02-07 10:46 | Outpatient (BNVA) | payer MEDICARE, MEDICAID, SELFPAY | PROVIDERS: PCP Physician Assistant; Visit Provider Podiatrist Foot & Ankle Surgery | DX: M20.11 Hallux valgus (acquired), right foot (principal); Z48.89 Encounter for other specified surgical aftercare | CPT/HCPCS: 73630; 99024 ==

== ENCOUNTER → 2023-02-21 11:27 | Outpatient (BNVA) | payer MEDICARE, MEDICAID, SELFPAY | PROVIDERS: PCP Physician Assistant; Visit Provider Podiatrist Foot & Ankle Surgery | DX: Z98.890 Other specified postprocedural states (principal); Z48.89 Encounter for other specified surgical aftercare | CPT/HCPCS: 99024 ==

== ENCOUNTER → 2023-03-07 13:25 | Outpatient (BNVA) | payer MEDICARE, MEDICAID, SELFPAY | PROVIDERS: PCP Physician Assistant; Visit Provider Podiatrist Foot & Ankle Surgery | DX: M79.671 Pain in right foot (principal); Z98.890 Other specified postprocedural states; Z48.89 Encounter for other specified surgical aftercare | CPT/HCPCS: 73630; 99024 ==

== ENCOUNTER → 2023-03-27 10:08 | Outpatient (BNVA) | payer MEDICARE, MEDICAID, SELFPAY | PROVIDERS: Visit Provider Surgery | DX: K29.60 Other gastritis without bleeding (principal); G56.03 Carpal tunnel syndrome, bilateral upper limbs | CPT/HCPCS: 95911; 99204; 99214 ==

== ENCOUNTER 2023-03-29 07:26 | Day surgery (SDC) | payer MEDICARE, MEDICAID, SELFPAY ==
--- OUTSIDE RECORDS SUMMARY | 2023-03-28 11:40 | XMS_ITS | Continuity of Care Document ---
Author Name Unknown Organization [facility] Address [address] [place] [address] Phone Care Team Providers Care Kiln Maintenance Name Role Phone Jose Alberto Schneider MD Unavailable Unavailable Allergies, Adverse Reactions, Alerts Substance Reaction Status Criticality clarithromycin Unknown(not reported) Active No I nformation Medications Medication Instructions Dosage Effective Dates (start - stop) Status Comments Naprosyn 500 mg tablet take 1 tablet by oral route 2 times every day with food 500 MG - Active Procedures Procedure Date OFFICE/OUTPATIENT VISIT [facility] Advance Directives Directive Yes / No Effective Date File Name No Information Encounters Encounter Description Practice Location Reason(s) For Visit Diagnoses Date Provider Providers Copied on Encounter [facility], [address] [place] [address], [address], tel:[phone] [facility] bilat L5-S1 TFESI (chief complaint) Elevated blood-pressure reading, w/o diagnosis of htnBody mass index (BMI) 25.0-25.9, adultAcute left-sided low back pain with left-sided sciaticaAcute bilateral low back pain with right-sided sciaticaSpinal stenosis of lumbar region without neurogenic claudication Sep-1 3-201 8 Wyatt Abrams. [address], [place], [id number]. tel:[phone] OFFICE/OUTPA TIENT VISIT [facility], [address], [address], [place] tel:[phone] [facility] CervicalgiaSpi nal stenosis of cervical regionAcute bilateral low back pain with right-sided sciaticaAcute left-sided low back pain with left-sided sciaticaSpinal stenosis of lumbar region without neurogenic claudicationOt her intervertebral disc degeneration, lumbar regionOther cervical disc displacement at C4-C5 level Sep-0 6-201 8 Wyatt Abrams. [address] [facility], [place], [place], [id number]. tel:[phone] Family History Family Member Type Diagnosis Age At Onset Mother Problem (finding) Alive and well Payers Payer name Insurance type Covered alliance party ID Alix bateman(s) [facility] Choice/Choice Plus E2 [id number] Social History Type Description Quantity Date Captured Comments Alcohol Use Details Unknown Caffeine Use Details Unknown Tobacco Use Status Current non-smoker 18 Smoking Status Never smoker Non-Smoking Tobacco Use Details : No Details Available : No Details Available Sex Female Vital Signs Date / Time: Height Weight BMI Pulse Rate Blood Pressure Temperature Respiratory Rate Body Surface Area Head Circumference Head Circ. Percentile Wt./Juan. Percentile BMI percentile Pulse Ox Inhaled Ox 2:31 PM 66.00 in 72.575 kg (160.00 lbs) 25.8 2 kg/m eter (2) 155/101 mm[Hg] Chief Complaint And Reason For Visit From encounter dated '12/06/2017 14:00'. bilat L5-S1 TFESI (chief complaint) Reason For Referral Reason For Referral No Information Plan Of Treatment Date Type Action Status Goal Lifestyle education regardin g diet completed History Of Present Illness Encounter Date Complaint History Of Prese nt Illness bilat L5-S1 TFESI Functional Status Date Functional Assessmen t No Information Instructions Date Instruction Additional Infor mation Exercise promotion: stretching R elated to Elevated blood-pressure reading without diagnosis of hypertension Lifestyle education regarding di et Related to Body mass index (BMI) 25.0-25.9, adult Activity as tolerated. Related t o Acute bilateral low back pain with right-sided sciatica Avoid prolonged bed rest. Relate d to Acute bilateral low back pain with right-sided sciatica Assessments Type Assessment Date assessment Elevated blood-press ure reading without diagnosis of hypertension assessment Body mass index (BMI) 25.0-25.9, adult assessment Acute left-sided low back pain w ith left-sided sciatica assessment Acute bilateral low back pain wi th right-sided sciatica assessment Spinal stenosis of l umbar region without neurogenic claudication Patient Care Teams Name Effective Dates (start - stop) Status Members No Information
--- OUTSIDE RECORDS SUMMARY | 2023-03-29 07:29 | XMS_ITS | Continuity of Care Document ---
Author Name Unknown Organization [facility] Address [address] [place] [address] Phone Care Team Providers Care Wood Turning Lathe Operator Name Role Phone Jose Alberto Schneider MD Unavailable Unavailable Allergies, Adverse Reactions, Alerts Substance Reaction Status Criticality clarithromycin Unknown(not reported) Active No I nformation Medications Medication Instructions Dosage Effective Dates (start - stop) Status Comments Naprosyn 500 mg tablet take 1 tablet by oral route 2 times every day with food 500 MG - Active Procedures Procedure Date OFFICE/OUTPATIENT VISIT [facility] Advance Directives Directive Yes / No Effective Date File Name No Information Encounters Encounter Description Practice Location Reason(s) For Visit Diagnoses Date Provider Providers Copied on Encounter [facility], [address] [place] [address], [address], tel:[phone] [facility] bilat L5-S1 TFESI (chief complaint) Elevated blood-pressure reading, w/o diagnosis of htnBody mass index (BMI) 25.0-25.9, adultAcute left-sided low back pain with left-sided sciaticaAcute bilateral low back pain with right-sided sciaticaSpinal stenosis of lumbar region without neurogenic claudication Sep-1 3-201 8 Wyatt Abrams. [address] [place], [place], [id number]. tel:[phone] OFFICE/OUTPA TIENT VISIT [facility], [address] [facility] [facility] [address], [place], [address], [place] tel:[phone] [facility] CervicalgiaSpi nal stenosis of cervical regionAcute bilateral low back pain with right-sided sciaticaAcute left-sided low back pain with left-sided sciaticaSpinal stenosis of lumbar region without neurogenic claudicationOt her intervertebral disc degeneration, lumbar regionOther cervical disc displacement at C4-C5 level Sep-0 6-201 8 Wyatt Abrams. [address] [facility], [place], [place], [id number]. tel:[phone] Family History Family Member Type Diagnosis Age At Onset Mother Problem (finding) Alive and well Payers Payer name Insurance type Covered republican ID Alix bateman(s) [facility] Choice/Choice Plus E2 [id number] Social History Type Description Quantity Date Captured [...]
[2023-03-29 08:23] VITALS: BP 158/107; PULSE 107; RESP 18; TEMP 36.5; O2SAT 96; BMI 29.0
[2023-03-29] MEDS: sodium chloride 0.9% 1,000 ML 30 ML IV (08:37)
--- NOTE | 2023-03-29 08:42 | P.HPUD_ITS ---
Surgery/Procedure H&P Update DATE OF PROCEDURE: March 29, 2023 DATE H&P PERFORMED: 03/27/23 H&P UPDATE INFORMATION: I have reviewed H&P completed within last 30 days, I have examined patient prior to procedure, No changes to prior documentation and H&P is in [facility] EMR on date indicated PLANNED PROCEDURE: Operation Date: 03/29/23 09:45 Proposed Procedures p 96510 egd K29.60(Not Applicable) - Brian Lawrence MD
--- NOTE | 2023-03-29 08:42 | W.PM.OPSUD ---
Surgery/Procedure H&P Update DATE OF PROCEDURE: March 29, 2023 DATE H&P PERFORMED: 03/27/23 H&P UPDATE INFORMATION: I have reviewed H&P completed within last 30 days, I have examined patient prior to procedure, No changes to prior documentation and H&P is in [facility] EMR on date indicated PLANNED PROCEDURE: Operation Date: 03/29/23 09:45 Proposed Procedures p 27082 egd K29.60(Not Applicable) - Brian Lawrence MD
--- NOTE | 2023-03-29 09:31 | P.ANESASSM_ITS ---
Pre-Anesthetic Assessment Height/Weight: Height 1.68 m Weight 81.647 kg Temp Pulse Resp BP Pulse Ox O2 Del Method 97.7 F 107 H 18 158/107 96 Room Air 03/29/23 08:23 03/29/23 08:23 03/29/23 08:23 03/29/23 08:23 03/29/23 08:23 03/29/23 08:23 Preop Diagnosis: Bloating, pain, dysphagia Operation Date: 03/29/23 09:45 Proposed Procedures p 74396 egd K29.60(Not Applicable) - Brian Lawrence MD Was Beta Alvin taken within 24 hours: N/A Was Clonidine taken within 24 hours: N/A Last intake: Intake Last Liquid Date 03/28/23 Last Liquid Time 00:00 Last Solid Date 03/28/23 Last Solid Time 20:00 Social Tobacco Exam alert, oriented x 3, clear to auscultation bilaterally and regular rate & rhythm Airway Submandibular: within normal limits Cervical ROM: within normal limits Mallampati: Class II Dentition: full History/ROS No significant history except as noted and No significant complaints Pulmonary None reported CV/HEM Arrythmia None reported Hepatic None reported GI Gastroesophageal Reflux Disease Metabolic None reported Musc/skel None reported Neuropsych Anxiety Anesthetic Plan ASA status: 2 Anesthesia: Anesthesia Evaluation and MAC Risk of > 500 ml blood loss (7ml/kg in children): No Medications/Allergies Home Medications Medication Instructions Recorded Confirmed Last Taken Type multivitamin (Multiple Vitamins 1 tab PO DAILY 12/11/19 03/29/23 03/28/23 History tablet) amlodipine 10 mg tablet 10 mg PO DAILY 04/12/22 03/29/23 03/29/23 History prednisone 5 mg tablet 5 mg PO DAILY #90 tabs 01/08/23 03/29/23 03/28/23 Rx levothyroxine 25 mcg tablet 25 mcg PO DAILY #100 tabs 02/05/23 03/29/23 03/28/23 Rx sulfasalazine 500 mg tablet See Rx Instructions .Route 03/20/23 03/29/23 03/28/23 Rx .COMPLEX #360 tabs leflunomide 20 mg tablet 20 mg PO DAILY 03/29/23 03/29/23 03/29/23 History Allergies Allergy/AdvReac Type Severity Reaction Status Date / Time clarithromycin [From Biaxin] Allergy ADR-Nausea Verified 03/27/23 14:03 Current Medications Generic Name Dose Route Start Last Admin Trade Name Freq PRN Reason Stop Dose Admin Sodium Chloride 1,000 mls @ 30 mls/hr 03/29/23 08:00 03/29/23 08:37 Sodium Chloride 0.9% IV 30 mls/hr .Q24H MOLLY Administration PFSH Anesthesia Medical History Exertional shortness of breath Immunization counseling High risk medication use 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
[2023-03-29 10:14] VITALS: BP 136/92; PULSE 102; RESP 16; TEMP 36.6; O2SAT 96
[2023-03-29 10:31] VITALS: BP 143/95; PULSE 104; RESP 18; O2SAT 98
--- NOTE | 2023-03-29 13:16 | ANE.PACU2 ---
Inpatient post-anesthesia follow up: Airway intact: Yes Vital signs: Temperature 98 F Pulse Rate 104 Respiratory Rate 18 Blood Pressure 143/95 Pulse Oximetry 98 Oxygen Delivery Me thod Room Air Oxygen Flow Rate Fraction of Inspir ed Oxygen Hydration adequate: Yes Nausea and vomiting: No Pain level: 2 Mental status: Baseline
== END 2023-03-29 10:57 | disposition home or self-care (01) ==
PROVIDERS: PCP Physician Assistant; Visit Provider Surgery
PROC: 0DJ08ZZ Inspection of Upper Intestinal Tract, Via Natural or Artificial Opening Endoscopic (ICD-10-PCS; CPT 43235; principal; 2023-03-29 09:45)
DX: K29.60 Other gastritis without bleeding (principal); K44.9 Diaphragmatic hernia without obstruction or gangrene; K29.50 Unspecified chronic gastritis without bleeding; K25.7 Chronic gastric ulcer without hemorrhage or perforation; K29.80 Duodenitis without bleeding; K21.00 Gastro-esophageal reflux disease with esophagitis, without bleeding; I10 Essential (primary) hypertension
CPT/HCPCS: 43239; 88305; 88312; 88342; J2704; J7030

== ENCOUNTER → 2023-04-11 13:03 | Outpatient (BNVA) | payer MEDICARE, MEDICAID, SELFPAY | PROVIDERS: PCP Physician Assistant; Visit Provider Podiatrist Foot & Ankle Surgery | DX: L60.0 Ingrowing nail; Z48.89 Encounter for other specified surgical aftercare; Z98.890 Other specified postprocedural states | CPT/HCPCS: 11730; 73630; 99024; A6219 ==

== ENCOUNTER → 2023-04-20 09:03 | Outpatient (BNVA) | payer MEDICARE, MEDICAID, SELFPAY | PROVIDERS: PCP Physician Assistant; Visit Provider Surgery | DX: Z09 Encounter for follow-up examination after completed treatment for conditions other than malignant neoplasm (principal) | CPT/HCPCS: 99213 ==

== ENCOUNTER 2023-05-21 10:39 | Outpatient (CLI) | payer MEDICARE, MEDICAID, SELFPAY ==
--- NOTE | 2023-05-21 11:00 | FL_ITS ---
WS: [id number] Exam: FL barium swallow modifd [id number] Date/Time of Exam: 05/21/2023 10:51 AM Reason For Exam: Fluoroscopy time: 3min [id number] minutes # of spot films: Modified barium swallow was performed in conjunction with the speech therapy service. The patient experienced moderate difficulty swallowing solid barium mixture foodstuffs. Chin tuck was necessary to swallow samuel cracker with barium coating. The patient tolerated the remaining barium mixture foodstuffs without difficulty. No penetration or aspiration was noted. The patient swallowed barium tablet without difficulty. IMPRESSION: 1. The patient experienced moderate difficulty swallowing solid barium mixture foodstuffs. See above discussion. 2. No aspiration or penetration was observed. A separate report with recommendations will follow from speech therapy service.
== END 2023-05-21 10:40 | disposition home or self-care (01) ==
LOC: RAD 10:40
PROVIDERS: PCP Physician Assistant; Visit Provider Surgery
DX: R13.10 Dysphagia, unspecified (principal)
CPT/HCPCS: 74230; 92611

== ENCOUNTER → 2023-05-23 13:00 | Outpatient (BNVA) | payer MEDICARE, MEDICAID, SELFPAY | PROVIDERS: PCP Physician Assistant; Visit Provider Podiatrist Foot & Ankle Surgery | DX: Z98.890 Other specified postprocedural states (principal); L60.0 Ingrowing nail; Z48.89 Encounter for other specified surgical aftercare | CPT/HCPCS: 73630; 99213 ==

== ENCOUNTER 2023-05-28 09:58 | Oncology outpatient (recurring) (ONCR) | payer MEDICARE, MEDICAID, SELFPAY ==
[2023-05-28 11:42] LABS: Basophils # 0.1 10^3/uL (0.0-0.1); Basophils % 1.3 %; Eosinophils # 0.1 10^3/uL (0.0-0.8); Eosinophils % 1.5 %; Hematocrit 43.5 % (36-47); Lymphocytes # 1.7 10^3/uL (0.8-4.8); Lymphocytes % 27.6 %; Mean Corpuscular HGB Conc 33.3 g/dL (30-55); Mean Corpuscular Hemoglobin 37.7 pg (27-33); Mean Platelet Volume 9.8 fL (7.4-10.4); Monocytes # 0.8 10^3/uL (0.2-0.9); Monocytes % 12.9 %; Neutrophils # 3.37 10^3/uL (1.8-7.7); Neutrophils % 56.4 %; Nucleated Red Blood Cells % 0 %; Platelet Count 189 10^3/cmm (157-399); Red Blood Count 3.85 10^6/uL (3.85-5.65); White Blood Count 5.98 10^3/uL (3.29-11.43)
[2023-05-28 12:07] LABS: Erythrocyte Sedimentation Rate 28 mm/hr (0-15)
[2023-05-28 12:26] LABS: Alanine Aminotransferase 17 U/L (0-33); Albumin Level 3.7 g/dL (3.5-5.2); Alkaline Phosphatase 185 U/L (35-105); Anion Gap 19.9 (5-19); Aspartate Amino Transferase 81 U/L (0-32); Blood Urea Nitrogen 8 mg/dL (6-20); C Reactive Protein 18.6 mg/L (0.0-4.9); Calcium 8.8 mg/dL (8.5-10.5); Carbon Dioxide 24 mmol/L (22-29); Chloride 94 mmol/L (98-107); Creatinine Clr Calc Pharmacy 92.3625; Globulin 3.1 g/dL (1.3-4.6); Glomerular Filtration Rate 85.9 mL/min (90-130); Glucose 101 mg/dL (65-115); Osmolality Calculated 276 mOsm/kg (285-295); Potassium 3.9 mmol/L (3.5-5.1); Sodium 134 mmol/L (136-145); Total Bilirubin 0.8 mg/dL (0.15-1.2); Total Protein 6.8 g/dL (6.6-8.7); Vitamin B12 430 pg/mL (232-1245)
[2023-05-29 12:10] LABS: PROTEIN, TOTAL 6.3 g/dL (6.1-8.1)
[2023-05-30 09:49] LABS: ALBUMIN 3.5 g/dL (3.8-4.8); ALPHA 1 GLOBULIN 0.4 g/dL (0.2-0.3); BETA 1 GLOBULIN 0.4 g/dL (0.4-0.6); BETA 2 GLOBULIN 0.4 g/dL (0.2-0.5); GAMMA GLOBULIN 0.6 g/dL (0.8-1.7)
[2023-05-30 16:10] LABS: KAPPA/LAMBDA LIGHT CHAINS FREE 1.38 (0.26-1.65); LAMBDA LIGHT CHAIN, FREE, SERU 17.4 mg/L (5.7-26.3)
[2023-05-31 10:00] LABS: Methylmalonic Acid 126 nmol/L (87-318)
[2023-06-01 21:44] LABS: Kappa Free Light Chains Urine 105.51 mg/L (<=32.90)
== END 2023-06-24 23:59 | disposition home or self-care (01) ==
PROVIDERS: Internal Medicine Medical Oncology; PCP Physician Assistant; Visit Provider Physician Assistant
DX: G62.9 Polyneuropathy, unspecified (principal); D47.2 Monoclonal gammopathy
CPT/HCPCS: 36415; 80053; 82607; 83883; 83921; 84155; 84156; 84165; 85025; 85651; 86140; 86334; 86335; 99205

== ENCOUNTER → 2023-05-29 12:43 | Outpatient (BNVA) | payer MEDICARE, MEDICAID, SELFPAY | PROVIDERS: PCP Physician Assistant; Visit Provider Surgery | DX: D47.2 Monoclonal gammopathy (principal); Z09 Encounter for follow-up examination after completed treatment for conditions other than malignant neoplasm | CPT/HCPCS: 99215 ==

== ENCOUNTER 2023-06-13 09:58 | Outpatient (CLI) | payer MEDICARE, SELFPAY ==
[2023-06-13 11:47] LABS: Creatine Phosphokinase 43 U/L (26-192); Thyroid Stimulating Hormone 5.76 uIU/mL (0.27-4.20)
[2023-06-13 12:34] LABS: Free T4 Free Thyroxine 1.21 ng/dL (0.82-1.77); T3 Free 2.1 PG/ML (2.0-4.4)
[2023-06-14 08:05] LABS: T3 Total 66 ng/dL (76-181)
[2023-06-14 10:50] LABS: CENTROMERE B ANTIBODY <1.0 NEG AI (<1.0 NEG); JO-1 ANTIBODY <1.0 NEG AI (<1.0 NEG); RNP ANTIBODY 2.8 POS AI (<1.0 NEG); SCL-70 ANTIBODY <1.0 NEG AI (<1.0 NEG); SJOGREN'S ANTIBODY (SS-A) <1.0 NEG AI (<1.0 NEG); SM ANTIBODY <1.0 NEG AI (<1.0 NEG); SS-B <1.0 NEG AI (<1.0 NEG)
[2023-06-14 11:50] LABS: COMPLEMENT COMPONENT C3C 149 mg/dL (83-193); COMPLEMENT COMPONENT C4C 37 mg/dL (15-57)
[2023-06-15 07:10] LABS: THYROID PEROXIDASE ANTIBODIES 1 IU/mL (<9)
[2023-06-15 13:15] LABS: ANA PATTERN Nuclear, Homogeneous; ANA SCREEN, IFA POSITIVE (NEGATIVE)
[2023-06-15 15:25] LABS: COMPLEMENT, TOTAL (CH50) >60 U/mL (31-60)
[2023-06-17 09:55] LABS: Copper Level 130 mcg/dL (70-175)
[2023-06-17 10:06] LABS: Zinc Level, Serum or Plasma 50 mcg/dL (60-130)
[2023-06-18 00:40] LABS: DNA AB (DS) CRITHIDIA,IFA NEGATIVE (NEGATIVE)
== END 2023-06-13 09:59 | disposition home or self-care (01) ==
LOC: LAB 09:59
PROVIDERS: Specialist; PCP Physician Assistant; Visit Provider Internal Medicine
DX: G62.9 Polyneuropathy, unspecified (principal); D47.2 Monoclonal gammopathy; R29.90 Unspecified symptoms and signs involving the nervous system; M79.7 Fibromyalgia; Z63.5 Disruption of family by separation and divorce; Z73.3 Stress, not elsewhere classified; I10 Essential (primary) hypertension; R76.8 Other specified abnormal immunological findings in serum; M19.90 Unspecified osteoarthritis, unspecified site; E03.8 Other specified hypothyroidism
CPT/HCPCS: 36415; 82525; 82550; 83520; 84439; 84443; 84480; 84481; 84630; 86160; 86162; 86235; 86255; 86376; 99205

== ENCOUNTER 2023-06-19 08:56 | Observation (INO) | payer MEDICARE, SELFPAY ==
[2023-06-19] VITALS (12 sets, daily range): BP systolic 137–166; BP diastolic 79–115; PULSE 98–112; RESP 14–19; TEMP 36.4–36.9; O2SAT 95–99; BMI 26.6; BMI 26.9
--- NOTE | 2023-06-19 09:01 | ECG_ITS ---
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 Measurements Intervals [place] Rate: 113 P: 55 MO: 142 QRS: 24 QRSD: 86 T: 31 QT: 311 QTc: 427 Interpretive Statements SINUS TACHYCARDIA ABNORMAL RHYTHM ECG INTERPRETATION BASED ON A DEFAULT AGE OF 40 YEARS Compared to ECG 12/11/2019 13:12:04 Sinus rhythm no longer present Electronically Signed On 06-20-2023 23:42:07 CDT by Ana Luisa Morrow M.D. [id number]
--- NOTE | 2023-06-19 09:12 | CT_ITS ---
WS: [id number] CT HEAD TECHNIQUE: Noncontrast CT of the head obtained from the skullbase to the vertex. CLINICAL INFORMATION: Vision changes COMPARISON: None. DLP: 992.[address] scans at [facility] use at least one of these dose optimization techniques: automated e xposure control; mA and/or kV adjustment per patient size (includes targeted exams where dose is matc hed to clinical indication); or iterative reconstruction. FINDINGS: No evidence of intracranial hemorrhage or mass effect. Ventricular system and basal cisterns are valenzuela nt. Mild small vessel changes with moderate parenchymal volume loss. No extra-axial fluid collections . No evidence of mass or mass effect. Prominent perivascular spaces LEFT basal ganglia. Mild cavernou s carotid calcification. Paranasal sinuses and mastoid air cells are well aerated. .Normal visualized soft tissues. IMPRESSION: 1. No evidence of intracranial hemorrhage or mass effect. 2. Mild small vessel changes with moderate parenchymal volume loss. 3. Mild cavernous carotid calcification. 4. No acute intracranial findings.
--- NOTE | 2023-06-19 09:12 | W.ED.CHESTPA ---
HPI - Chest Pain General: Chief Complaint: Chest Pain Stated Complaint: Chest pain Time Seen by Provider: 06/19/23 08:58 Source: patient Mode of arrival: ambulatory History of Present Illness: 57-year-old female brought from the endocrinology clinic as a rapid response complaining palpitations and chest discomfort. She also complaining of vision changes. Patient is unusually anxious. She screams in pain with even light touch to the her feet. She refers to some right-sided chest discomfort without radiation began while she was at rest waiting to see the fitness consultant. No known history of coronary artery disease. When asked what was going on today that she was brought to the emergency room she stated her blood pressure was unusually low for her at 130/80 that her normal blood pressure was 180/110. No other focal neurologic deficits are noted. MD complaint: chest pain Onset (ago): minute(s) Timing of current episode: episodic Onset: during rest Pain location: right chest Pain radiation: none Relieving factors: nothing Exacerbating factors: nothing Associated symptoms: Deny abdominal pain, dyspnea or fever(s) Review of Systems Const: Denies: fever(s) or chills Card: Denies: chest pain Resp: Denies: dyspnea GI: Denies: abdominal pain : Denies: dysuria, urinary frequency or urinary urgency Musc: Denies: neck pain or back pain Skin/Breast: Denies: rash Psych: Reports: anxiety [facility] ED PFSH: Medical History Hypothyroidism Exertional shortness of breath Immunization counseling High risk medication use 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 Positive ANDREW (antinuclear antibody) Inflammatory arthritis Gout Hypertension Surgical History History of foot surgery (2016) Plantar fasciitis History of surgical removal of pilonidal cyst (1999) History of carpal tunnel release (1999) History of bunionectomy of left great toe (2018) History of bunionectomy of right great toe (01/24/23) History of esophagogastroduodenoscopy (EGD) (03/29/23) [facility] 8 years History of ventral hernia repair (05/08/22) Social History Smoking and tobacco/nicotine status: never used tobacco/nicotine Alcohol intake: current Physical Exam Const: COMMON NORMALS: no acute distress GENERAL APPEARANCE: cooperative and comfortable ORIENTATION/CONSCIOUSNESS: Yes awake, Yes oriented to person, Yes oriented to place and Yes oriented to time HENMT: COMMON NORMALS: normocephalic, atraumatic and hearing grossly normal bilaterally HEAD & SCALP: normocephalic and atraumatic Resp: COMMON NORMALS: normal respiratory effort, No retractions, No use of accessory muscles and clear to auscultation bilaterally AUSCULTATION: clear to auscultation bilaterally Cardio: COMMON NORMALS: regular rate, regular rhythm and No murmurs present (Cardio) RATE: regular rate RHYTHM: regular rhythm GI: COMMON NORMALS: Soft to palpation and No hepatosplenomegaly present AUSCULTATION: Yes normoactive bowel sounds PALPATION: Yes Soft to palpation, No Tenderness to palpation present (GI), No Guarding due to palpation present (GI) and Yes No hepatosplenomegaly present Extremity: COMMON NORMALS: normal to inspection, capillary refill normal, no clubbing, cyanosis or edema, no calf tenderness and no pedal edema Neuro: SENSORIUM/ORIENTATION: Yes oriented to person, Yes oriented to place and Yes oriented to time Skin: COMMON NORMALS: no rashes or lesions noted GENERAL SKIN EXAM: no rashes or lesions noted Course Vital Signs: Vital signs: Vital Signs Temperature 98.4 F 06/19/23 08:58 Pulse Rate 110 H 06/19/23 13:30 Respiratory Rate 15 06/19/23 13:30 Blood Pressure 138/92 06/19/23 13:30 Pulse Oximetry 95 06/19/23 13:30 Oxygen Delivery Me thod Room Air 06/19/23 08:58 MDM - Chest Pain Medical Decision Making Patient presents with episode of generalized weakness and vision changes CT of his head of her head is negative she has no other focal neurologic deficits. She was complaining of chest discomfort and has some mild tachycardia. CTA of her chest and her chest x-ray are both normal there is no evidence of PE pneumonia. Chest discomfort is resolved for cardiac enzymes and EKG does not show any acute changes. Patient is still feeling very weak. She reports her blood pressure typically is in the 180/110 and feels that her blood pressure 135 over 80s is unusually low for her. CT of her head was negative. Will place her on observation for vision changes and generalized weakness near syncopal episode discussed Dr. Dodson orders written Medical Records I reviewed the patient's medical records. Lab Data I reviewed the patient's lab results. 06/19/23 10:22 06/19/23 10:22 Laboratory Results WBC 5.17 10^3/uL (3.29-11.43) 06/19/23 10:22 RBC 3.50 10^6/uL (3.85-5.65) L 06/19/23 10:22 Hgb 13.40 g/dL (11.27-16.99) 06/19/23 10:22 Hct 40.0 % (36-47) 06/19/23 10:22 MCV 114.3 fl (85-98) H 06/19/23 10:22 MCH 38.3 pg (27-33) H 06/19/23 10:22 MCHC 33.5 g/dL (30-55) 06/19/23 10:22 RDW 15.2 % (12.1-15.1) H 06/19/23 10:22 Plt Count 149 10^3/cmm (157-399) L 06/19/23 10:22 MPV 9.9 fL (7.4-10.4) 06/19/23 10:22 Neut % (Auto) 54.9 % 06/19/23 10:22 Lymph % (Auto) 26.9 % 06/19/23 10:22 [place] % (Auto) 16.2 % 06/19/23 10:22 Eos % (Auto) 0.6 % 06/19/23 10:22 Baso % (Auto) 1.2 % 06/19/23 10:22 Neut # (Auto) 2.84 10^3/uL (1.8-7.7) 06/19/23 10:22 Lymph # (Auto) 1.4 10^3/uL (0.8-4.8) 06/19/23 10:22 [place] # (Auto) 0.8 10^3/uL (0.2-0.9) 06/19/23 10:22 Eos # (Auto) 0.0 10^3/uL (0.0-0.8) 06/19/23 10:22 Baso # (Auto) 0.1 10^3/uL (0.0-0.1) 06/19/23 10:22 Nucleated RBC % (auto) 0 % 06/19/23 10:22 Nucleated RBCs # 0.0 /100WBC 06/19/23 10:22 Sodium 137 mmol/L (136-145) 06/19/23 10:22 Potassium 3.8 mmol/L (3.5-5.1) 06/19/23 10:22 Chloride 95 mmol/L (98-107) L 06/19/23 10:22 Carbon Dioxide 25 mmol/L (22-29) 06/19/23 10:22 Anion Gap 20.8 (5-19) H 06/19/23 10:22 BUN 11 mg/dL (6-20) 06/19/23 10:22 Creatinine 0.6 mg/dL (0.5-0.9) 06/19/23 10:22 GFR Calculation 102.7 mL/min (90-130) 06/19/23 10:22 Glucose 90 mg/dL (65-115) 06/19/23 10:22 Calculated Osmolality 283 mOsm/kg (285-295) L 06/19/23 10:22 Calcium 8.3 mg/dL (8.5-10.5) L 06/19/23 10:22 Total Bilirubin 1.0 mg/dL (0.15-1.2) 06/19/23 10:22 AST 84 U/L (0-32) H 06/19/23 10:22 ALT 12 U/L (0-33) 06/19/23 10:22 Alkaline Phosphatase 180 U/L (35-105) H 06/19/23 10:22 Troponin T Baseline 22 ng/L (0-10) H 06/19/23 09:22 Troponin T 120 Minute 22.13 ng/L (0-10) H 06/19/23 11:25 Delta Troponin T 0.13 ABS# (0-10) 06/19/23 11:25 Total Protein 5.9 g/dL (6.6-8.7) L 06/19/23 10:22 Albumin 3.3 g/dL (3.5-5.2) L 06/19/23 10:22 Globulin 2.6 g/dL (1.3-4.6) 06/19/23 10:22 Urine Color Susie (Yellow) 06/19/23 11:46 Urine Appearance Turbid (CLEAR) A 06/19/23 11:46 Urine pH 5 (5-7) 06/19/23 11:46 Ur Specific [place] 1.020 (1.005-1.030) 06/19/23 11:46 Urine Protein 1+ (Negative) H 06/19/23 11:46 Urine Glucose (UA) Norm (Normal) 06/19/23 11:46 Urine Ketones 1+ (Negative) H 06/19/23 11:46 Urine Blood 2+ (Negative) H 06/19/23 11:46 Urine Nitrate Negative (Negative) 06/19/23 11:46 Urine Bilirubin 2+ (Negative) H 06/19/23 11:46 Urine Urobilinogen 4 mg/dL (Negative) H 06/19/23 11:46 Ur Leukocyte Esterase Trace (Negative) H 06/19/23 11:46 Urine RBC 0-4 /hpf (0-2) H 06/19/23 11:46 Urine WBC 5-10 /hpf (0-5) H 06/19/23 11:46 Ur Squamous Epith Cells 10-15 /hpf (0-5) H 06/19/23 11:46 Amorphous Sediment 1+ /hpf 06/19/23 11:46 Urine Bacteria 1+ /hpf (NONE) H 06/19/23 11:46 Hyaline Casts 10-15 /lpf H 06/19/23 11:46 All radiology interpretation(s) finalized by discharge Discharge Plan Discharge Patient Disposition: Placed in Observation Clinical Impression: Near syncope, Hypertension, Fibromyalgia, Tachycardia Condition: Stable Prescriptions: No Action leflunomide 20 mg tablet 20 mg PO DAILY Qty: 30 2RF prednisone 5 mg tablet 5 mg PO DAILY Qty: 90 1RF levothyroxine 25 mcg tablet See Rx Instructions .ROUTE .COMPLEX Qty: 30 0RF Dose Instruction: TAKE 1 TABLET BY MOUTH DAILY SUNDAY THRU SUNDAY, THEN 2 TABLETS BY MOUTH ON SUNDAY Rx Instructions: TAKE 1 TABLET BY MOUTH DAILY SUNDAY THRU SUNDAY, THEN 2 TABLETS BY MOUTH ON SUNDAY multivitamin [Multiple Vitamins] Tablet 1 tab PO DAILY biotin 5 mg Tablet 5 mg PO DAILY sulfasalazine 500 mg tablet 1,000 mg PO BID amlodipine 10 mg tablet 5 mg PO DAILY Referrals: Randee Klein PA [Primary Care Provider] - Patient Instructions: Opioid Safety, Pain Management Coding Level of Care Code ED Middleware Architect for Jania Craig
--- NOTE | 2023-06-19 09:13 | PC.NURSE ---
Rapid response called to endocrinology. Upon arrival, patient was found sitting in a wheel chair and anxious. REports feeling lightheaded, a racing heart, right sided chest pain, and visual changes (white spots). BP: 120/80, HR: 126, SPO2: 98% on room air. Nurse transported patient via wheelchair to ER for further evaluation.
[2023-06-19 09:51] LABS: Troponin(5th) Baseline 22 ng/L (0-10)
--- NOTE | 2023-06-19 10:09 | XR_ITS ---
WS: [id number] Exam: XR chest 1V portable [id number] Date/Time of Exam: 06/19/2023 10:10 AM Reason For Exam: dyspnea/cough Comparison 07/10/2022. The lungs are clear and fully expanded. Normal cardiomediastinal silhouette and regional bony element s. No pleural effusion. Monitoring leads superimpose the chest. IMPRESSION: 1. Negative chest.
[2023-06-19 10:35] LABS: Basophils # 0.1 10^3/uL (0.0-0.1); Basophils % 1.2 %; Eosinophils % 0.6 %; Lymphocytes # 1.4 10^3/uL (0.8-4.8); Lymphocytes % 26.9 %; Mean Corpuscular HGB Conc 33.5 g/dL (30-55); Mean Corpuscular Hemoglobin 38.3 pg (27-33); Mean Corpuscular Volume 114.3 fl (85-98); Mean Platelet Volume 9.9 fL (7.4-10.4); Monocytes # 0.8 10^3/uL (0.2-0.9); Monocytes % 16.2 %; Neutrophils # 2.84 10^3/uL (1.8-7.7); Neutrophils % 54.9 %; Nucleated Red Blood Cells % 0 %; Platelet Count 149 10^3/cmm (157-399); Red Cell Distribution Width 15.2 % (12.1-15.1); White Blood Count 5.17 10^3/uL (3.29-11.43)
[2023-06-19 10:57] LABS: Alanine Aminotransferase 12 U/L (0-33); Albumin Level 3.3 g/dL (3.5-5.2); Alkaline Phosphatase 180 U/L (35-105); Anion Gap 20.8 (5-19); Aspartate Amino Transferase 84 U/L (0-32); Blood Urea Nitrogen 11 mg/dL (6-20); Calcium 8.3 mg/dL (8.5-10.5); Carbon Dioxide 25 mmol/L (22-29); Chloride 95 mmol/L (98-107); Creatinine Clr Calc Pharmacy 105.7071; Globulin 2.6 g/dL (1.3-4.6); Glomerular Filtration Rate 102.7 mL/min (90-130); Glucose 90 mg/dL (65-115); Osmolality Calculated 283 mOsm/kg (285-295); Potassium 3.8 mmol/L (3.5-5.1); Sodium 137 mmol/L (136-145); Total Protein 5.9 g/dL (6.6-8.7)
--- NOTE | 2023-06-19 11:35 | ECG_ITS ---
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 Measurements Intervals [place] Rate: 112 P: 55 [place]: 120 QRS: 30 QRSD: 89 T: 32 QT: 327 QTc: 447 Interpretive Statements SINUS TACHYCARDIA MINIMAL ST DEPRESSION [0.025+ mV ST DEPRESSION] ABNORMAL RHYTHM ECG Compared to ECG 06/19/2023 09:01:21 ST (T wave) deviation now present Electronically Signed On 06-20-2023 23:58:59 CDT by Ana Luisa Morrow M.D. [id number]
[2023-06-19 11:54] LABS: Troponin 5 2HR 22.13 ng/L (0-10); Troponin 5 2HR Delta 0.13 ABS# (0-10)
--- NOTE | 2023-06-19 12:28 | CT_ITS ---
WS: [id number] CTA OF THE CHEST WITH PULMONARY EMBOLISM PROTOCOL TECHNIQUE: High-resolution contrast enhanced CTA of the chest with coronal and sagittal reformatted i mages with pulmonary embolism protocol. MIP images are also reviewed. CLINICAL INFORMATION: tchycardia, chest pain COMPARISON: None. DLP: 301.[address] scans at [facility] use at least one of these dose optimization techniques: automated e xposure control; mA and/or kV adjustment per patient size (includes targeted exams where dose is matc hed to clinical indication); or iterative reconstruction. FINDINGS: Normal caliber thoracic aorta. Proximal main pulmonary arteries are normal. Normal segmental and subs egmental pulmonary arteries. No evidence of pulmonary embolus. Lungs are well aerated. No mediastinal or hilar lymphadenopathy. No axillary lymphadenopathy. Patchy low-attenuation changes in the LEFT hepatic lobe likely due to fatty infiltration. Hepatomegaly. IMPRESSION: 1. No evidence of pulmonary embolus. 2. No acute pulmonary infiltrates. 3. Patchy low-attenuation changes in the LEFT hepatic lobe likely due to fatty infiltration. Hepatom egaly. This can be followed up with contrast-enhanced CT abdomen pelvis with triphasic liver protocol . Recommend correlation liver function tests.
[2023-06-19 12:54] LABS: Add Urine Microscopic? YES; Bilirubin Urine 2+ (Negative); Blood Urine 2+ (Negative); Glucose Urine UA Norm (Normal); Ketones Urine 1+ (Negative); Leukocyte Esterase Urine Trace (Negative); Protein Urine 1+ (Negative); Urine Appearance Turbid (CLEAR); Urobilinogen Urine 4 mg/dL (Negative); pH Urine 5 (5-7)
[2023-06-19 12:55] LABS: Urine Color Amber (Yellow)
[2023-06-19 12:56] LABS: Nitrate Urine Negative (Negative)
[2023-06-19 12:57] LABS: Amorphous Sediment Urine 1+ /hpf; Bacteria Urine 1+ /hpf; RBC Urine 0-4 /hpf (0-2)
[2023-06-19 12:58] LABS: Add Urine Culture? No
[2023-06-19] MEDS: iohexol 350 mg/mL 500 mL Btl (per mL) IV (13:16)
--- NOTE | 2023-06-19 15:11 | ECG_ITS ---
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 Measurements Intervals [place] Rate: 110 P: 66 [place]: 145 QRS: 41 QRSD: 93 T: 22 QT: 333 QTc: 451 Interpretive Statements SINUS TACHYCARDIA NONSPECIFIC ST & T-WAVE ABNORMALITY ABNORMAL RHYTHM ECG Compared to ECG 06/19/2023 11:35:46 T-wave abnormality now present ST (T wave) deviation no longer present Electronically Signed On 06-21-2023 0:00:47 CDT by Ana Luisa Morrow M.D. [id number]
--- NOTE | 2023-06-19 15:39 | USCV_ITS ---
Alysa Goodman Age: 57 Gender: F : 1965 Exam Date: 06/19/2023 17:07 Ordering Phys: Milton Dodson MD Technologist: CT Exam Location: [facility] [place] Indication: Risk Factors: Previous Vascular Surgery: Right Brachial BP: / Left Brachial BP: / Right Left Velocity (cm/s) Spectral Plaque Velocity (cm/s) Spectral Plaque Syst/Diast Broadening Syst/Diast Broadening 105.70/14.40 Prox CCA 131.10/ 28.10 85.30/ 23.50 Mid CCA 92.50 / 25.50 86.40/ 25.10 Distal CCA 76.50 / 23.50 94.30/ 19.60 Prox ICA 77.80 / 22.10 81.50/ 21.00 Mid ICA 85.80 / 26.90 67.10/ 19.80 Distal ICA 96.90 / 34.80 78.80 ECA 73.00 1.10 ICA/CCA 1.30 Antegrade Vertebral Antegrade 36.20/ 7.10 cm/s 52.30/ 18.90 cm/s Bi Subclavian Bi 107.1 120.4 0 0 CONCLUSIONS Right ICA stenosis <50%. Moderate atheromatous plaque right carotid bulb/ICA. Left ICA stenosis <50%. Moderate atheromatous plaque left carotid bulb/ICA. Normal antegrade Doppler flow noted in the right vertebral artery. Normal antegrade Doppler flow noted in the left vertebral artery. Obey Levine MD (Electronically Signed) Final Date: 20 June 2023 09:14 S
--- NOTE | 2023-06-19 15:55 | P.HP_ITS ---
Providers/Chief Complaint 2 Admitting Physician: Milton Dodson MD Primary Care Provider: Randee Klein Chief Complaint: Chest pain History of Present Illness Alysa Goodman is a 57 year old female with a past medical history of hypertension, peripheral neuropathy, history of possible mini stroke associated with vitreal occlusion, inflammatory arthritis, who presents to [facility] as a rapid response from endocrinology clinic. Patient has been complaining of chest pain, palpitations, visual changes, severe neuropathy to bilateral lower extremities. Patient tells me that she intermittently has chest palpitations like her chest is beating out of her chest, anterior chest discomfort nonradiating associated feeling lightheaded dizzy that she is almost going to pass out, she does report intermittent blurry vision, but none currently, patient is currently no focal weakness, but does have very severe neuropathy in bilateral lower extremities, so much so that moving the covers over her feet causes excruciating pain Review of Systems 2 Card: Reports: chest pain Resp: Denies: dyspnea GI: Denies: abdominal pain Neuro: Reports: weakness in extremities and sensory changes; Denies: headache(s) Medications/Allergies Home Medications Medication Instructions Recorded Confirmed Last Taken Type multivitamin (Multiple Vitamins 1 tab PO DAILY 12/11/19 06/19/23 06/19/23 History tablet) leflunomide 20 mg tablet 20 mg PO DAILY #30 tabs 04/30/23 06/19/23 06/19/23 Rx prednisone 5 mg tablet 5 mg PO DAILY #90 tabs 04/30/23 06/19/23 06/19/23 Rx levothyroxine 25 mcg tablet See Rx Instructions .Route 05/22/23 06/19/23 06/19/23 Rx .COMPLEX #30 tabs amlodipine 10 mg tablet 5 mg PO DAILY 06/19/23 06/19/23 06/19/23 History biotin 5 mg tablet 5 mg PO DAILY 06/19/23 06/19/23 06/19/23 History sulfasalazine 500 mg tablet 1,000 mg PO BID 06/19/23 06/19/23 06/19/23 History Allergies Allergy/AdvReac Type Severity Reaction Status Date / Time clarithromycin [From Biaxin] Allergy ADR-Nausea Verified 06/19/23 07:41 PFSH Acute 2 PFSH: Medical History Hypothyroidism Exertional shortness of breath Immunization counseling High risk medication use 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 Positive NADREW (antinuclear antibody) Inflammatory arthritis Gout Hypertension Surgical History History of foot surgery (2015) Plantar fasciitis History of surgical removal of pilonidal cyst (1999) History of carpal tunnel release (1999) History of bunionectomy of left great toe (2018) History of bunionectomy of right great toe (01/24/23) History of esophagogastroduodenoscopy (EGD) (03/29/23) [facility] 8 years History of ventral hernia repair (05/08/22) Social History Smoking and tobacco/nicotine status: never used tobacco/nicotine Alcohol intake: current Vitals/I&O/Wt Last Vital Signs Temp 98.4 F 06/19/23 08:58 Pulse 110 H 06/19/23 13:30 Resp 15 06/19/23 13:30 BP 138/92 06/19/23 13:30 Pulse Ox 95 06/19/23 13:30 O2 Del Method Room Air 06/19/23 08:58 Weight last 48 hrs Weight 74.843 kg Physical Exam 2 Const: COMMON NORMALS: no acute distress and patient oriented x3 Eye: COMMON NORMALS: Equal, round and reactive pupils present Neck/C-Spine: COMMON NORMALS: no lymphadenopathy Resp: COMMON NORMALS: normal respiratory effort, No retractions, No use of accessory muscles and clear to auscultation bilaterally AUSCULTATION: clear to auscultation bilaterally Cardio: COMMON NORMALS: no JVD, regular rate, regular rhythm, S1 normal heart sound present and S2 normal heart sound present RATE: regular rate RHYTHM: regular rhythm HEART SOUNDS: S1 normal heart sound present and S2 normal heart sound present GI: COMMON NORMALS: Normal to inspection, nondistended, normoactive bowel sounds present, Soft to palpation and non-tender Extremity: COMMON NORMALS: no calf tenderness and no pedal edema Neuro: COMMON NORMALS: patient oriented x3, CN's II-XII intact bilaterally and moves all extremities Psych: COMMON NORMALS: mental status grossly normal Data 06/19/23 10:22 06/19/23 10:22 A&P Assessment and plan (1) Chest pain: Qualifiers: Chest pain type: unspecified Qualified Code(s): R07.9 - Chest pain, unspecified (2) Hypothyroid: (3) Hypertension: (4) Tachycardia: (5) Near syncope: Plan Chest pain ? Serial EKGs, serial troponins, telemetry monitoring, cardiac echo Presyncope, ? Check orthostatic vitals ? Monitor closely Tachycardia, sinus tachycardia, ? Telemetry monitoring, EKGs, cardiac echo, TSH Severe peripheral neuropathy, ? TSH, B12, folic acid, serum protein electrophoresis, Hepatomegaly Urine toxicology screen, alcohol levels Attestations 2 Medical Necessity Statement*: Patient requires hospitalization for chest palpitations, chest pain, presyncope, tachycardia, outpatient with observation Diagnoses Chest pain R07.9 Chest pain type: unspecified Hypothyroid E03.9 Hypertension I10 Tachycardia R00.0 Near syncope R55
[2023-06-19 16:01] LABS: Erythrocyte Sedimentation Rate 20 mm/hr (0-15)
[2023-06-19 16:11] LABS: Troponin 5 6HR 24.77 ng/L (0-10); Troponin 5 6HR Delta 2.77 ng/L (0-12)
[2023-06-19 16:24] LABS: Estmated Average Glucose 82; Hemoglobin A1C 4.5 % (4.0-6.0)
[2023-06-19 16:34] LABS: Cortisol Random 13.51 ug/dL (2.47-19.5); Creatine Phosphokinase 40 U/L (26-192); Free T4 Free Thyroxine 1.36 ng/dL (0.82-1.77); Procalcitonin 0.09 ng/mL (0-0.5); T3 Free 1.7 PG/ML (2.0-4.4); Uric Acid 8.9 mg/dL (2.4-5.7)
[2023-06-19 16:35] LABS: Rapid Plasma Reagin Syphilis Nonreactive (Nonreactive)
[2023-06-19 16:38] LABS: Amphetamines Screen Urine Negative (Negative); Barbiturates Screen Urine Negative (Negative); Benzodiazepines Screen Urine Positive (Negative); Cocaine Screen Urine Negative (Negative); Opiate Screen Urine Positive (Negative); PCP Screen Urine Negative (Negative); THC Screen Urine Positive (Negative)
[2023-06-19 16:39] LABS: Alcohol Level < 10 mg/dL (0-10)
[2023-06-19 16:40] LABS: Hepatitis A Antibody IgM Non-Reactive (Nonreactive); Hepatitis B Core IgM Non-Reactive (Nonreactive); Hepatitis B Surface Antigen Non-Reactive (Nonreactive); Hepatitis C Virus Antibody Non-Reactive (Nonreactive)
[2023-06-19 16:45] LABS: C Reactive Protein 6.8 mg/L (0.0-4.9)
[2023-06-19 16:47] LABS: Folate Level 2.1 ng/mL (4.8-37.3)
[2023-06-19] MEDS: enoxaparin 40 mg/0.4 mL Syringe SUBCUT (17:28)
[2023-06-19] MEDS: pantoprazole 40 mg SDV IVP (17:30)
[2023-06-19] MEDS: folic acid 1 mg Tablet PO (17:33)
[2023-06-19 18:22] LABS: Ferritin 859 ng/mL (15-150)
[2023-06-19 18:37] LABS: Vitamin B12 388 pg/mL (232-1245)
[2023-06-19] MEDS: sulfaSALAzine 500 mg Tablet 1000 MG PO (19:44)
[2023-06-19 21:21] LABS: HIV 1 & 2 Antigen Non-Reactive (Non-Reactiv)
[2023-06-19 21:22] LABS: HIV 1 & 2 Antibody Non-Reactive (Non-Reactiv)
[2023-06-19] MEDS: gabapentin 300 mg Capsule PO (22:55)
[2023-06-19] MEDS: oxyCODONE-APAP 5-325 mg Tablet 1 TAB PO (22:55)
[2023-06-19] MEDS: predniSONE 5 mg Tablet PO (22:55)
[2023-06-20] VITALS (16 sets, daily range): BP systolic 102–145; BP diastolic 73–92; PULSE 89–133; RESP 16–18; TEMP 36.4–36.8; O2SAT 94–99; BMI 25.8
[2023-06-20] MEDS: oxyCODONE-APAP 5-325 mg Tablet 1 TAB PO ×3 (04:58→20:36)
[2023-06-20 05:49] LABS: Basophils % 1.1 %; Eosinophils % 1.4 %; Hematocrit 39.6 % (36-47); Lymphocytes # 1.1 10^3/uL (0.8-4.8); Lymphocytes % 39.4 %; Mean Corpuscular HGB Conc 33.3 g/dL (30-55); Mean Corpuscular Hemoglobin 37.9 pg (27-33); Mean Corpuscular Volume 113.8 fl (85-98); Mean Platelet Volume 10.3 fL (7.4-10.4); Monocytes # 0.3 10^3/uL (0.2-0.9); Neutrophils % 45.7 %; Nucleated Red Blood Cells % 0 %; Platelet Count 132 10^3/cmm (157-399); Red Blood Count 3.48 10^6/uL (3.85-5.65); Red Cell Distribution Width 15.5 % (12.1-15.1); White Blood Count 2.84 10^3/uL (3.29-11.43)
[2023-06-20 06:07] LABS: Alanine Aminotransferase 10 U/L (0-33); Albumin Level 3.5 g/dL (3.5-5.2); Alkaline Phosphatase 185 U/L (35-105); Anion Gap 16.4 (5-19); Aspartate Amino Transferase 58 U/L (0-32); Blood Urea Nitrogen 10 mg/dL (6-20); Calcium 8.7 mg/dL (8.5-10.5); Carbon Dioxide 28 mmol/L (22-29); Chloride 98 mmol/L (98-107); Creatinine Clr Calc Pharmacy 104.2434; Globulin 2.8 g/dL (1.3-4.6); Glomerular Filtration Rate 102.7 mL/min (90-130); Glucose 117 mg/dL (65-115); Magnesium 1.8 mg/dL (1.7-2.3); Osmolality Calculated 288 mOsm/kg (285-295); Phosphorus 3.4 mg/dL (2.5-4.5); Potassium 3.4 mmol/L (3.5-5.1); Sodium 139 mmol/L (136-145); Total Protein 6.3 g/dL (6.6-8.7)
[2023-06-20] MEDS: folic acid 1 mg Tablet PO ×2 (08:45→18:41)
[2023-06-20] MEDS: amlodipine 10 mg Tablet 5 MG PO (08:45)
[2023-06-20] MEDS: sulfaSALAzine 500 mg Tablet 1000 MG PO ×2 (08:45→18:41)
[2023-06-20] MEDS: multivitamin therapeutic Tablet 1 TAB PO (08:46)
[2023-06-20] MEDS: levothyroxine 50 mcg Tablet 25 MCG PO (09:03)
[2023-06-20 09:37] LABS: Iron 119 ug/dL (37-145); Percent Saturation 47.4 % (20-50); Total Iron Binding Capacity 251 mcg/dl; Transferrin 218 mg/dL (200-360); Unsaturated Iron Binding 132 ug/dL (112-347)
--- NOTE | 2023-06-20 10:34 | ECG_ITS ---
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 Measurements Intervals [place] Rate: 95 P: 63 [place]: 146 QRS: 24 QRSD: 93 T: 9 QT: 345 QTc: 435 Interpretive Statements SINUS RHYTHM Compared to ECG 06/19/2023 15:12:48 Sinus tachycardia no longer present T-wave abnormality no longer present Electronically Signed On 06-20-2023 23:55:18 CDT by Ana Luisa Morrow M.D. [id number]
[2023-06-20 11:16] LABS: Troponin(5th) Baseline 28 ng/L (0-10)
--- NOTE | 2023-06-20 13:06 | ECG_ITS ---
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 Measurements Intervals [place] Rate: 102 P: 63 [place]: 146 QRS: 39 QRSD: 92 T: 39 QT: 335 QTc: 436 Interpretive Statements SINUS TACHYCARDIA MINIMAL ST DEPRESSION [0.025+ mV ST DEPRESSION] ABNORMAL RHYTHM ECG Compared to ECG 06/20/2023 11:16:13 ST (T wave) deviation now present Sinus rhythm no longer present Electronically Signed On 06-21-2023 0:03:32 CDT by Ana Luisa Morrow M.D. [id number]
--- NOTE | 2023-06-20 15:27 | P.PN_ITS ---
Subjective 2 Subjective: Patient was seen this morning, she reports episodes of chest pain early this morning, discussed repeating troponin series, currently chest pain-free, does report lightheadedness, discussed checking orthostatic vitals, patient does tell me that the oxycodone significantly helps with the neuropathy, the gabapentin does not seem to help, Vitals/I&O/Wt Last Vital Signs Temp 97.9 F 06/20/23 11:16 Pulse 96 06/20/23 11:16 Resp 16 06/20/23 12:51 BP 135/77 06/20/23 11:16 Pulse Ox 98 06/20/23 12:51 O2 Del Method Room Air 06/20/23 11:16 06/20/23 06/20/23 06/20/23 06:59 14:59 22:59 Intake Total 480 / 720 1080 / 1080 Balance 480 / 720 1080 / 1080 Weight last 48 hrs Weight 72.575 kg Weight 75.551 kg Weight 74.843 kg Physical Exam 2 Const: COMMON NORMALS: no acute distress and patient oriented x3 Resp: COMMON NORMALS: normal respiratory effort, No retractions, No use of accessory muscles and clear to auscultation bilaterally AUSCULTATION: clear to auscultation bilaterally Cardio: COMMON NORMALS: regular rate, regular rhythm, S1 normal heart sound present and S2 normal heart sound present RATE: regular rate RHYTHM: r egular rhythm HEART SOUNDS: S1 normal heart sound present and S2 normal heart sound present GI: COMMON NORMALS: Normal to inspection, nondistended, normoactive bowel sounds present and non-tender Extremity: COMMON NORMALS: no pedal edema Neuro: COMMON NORMALS: patient oriented x3 Psych: COMMON NORMALS: mental status grossly normal Data 06/20/23 05:06 06/20/23 05:06 A&P Assessment and plan (1) Chest pain: Qualifiers: Chest pain type: unspecified Qualified Code(s): R07.9 - Chest pain, unspecified (2) Hypothyroid: (3) Hypertension: (4) Tachycardia: (5) Near syncope: (6) Orthostatic hypotension: (7) Folic acid deficiency: Plan Chest pain ? Serial EKGs, serial troponins, telemetry monitoring, cardiac echo Presyncope, ? Check orthostatic vitals ? Monitor closely Tachycardia, sinus tachycardia, ? Telemetry monitoring, EKGs, cardiac echo, TSH Severe peripheral neuropathy, ? , serum protein electrophoresis, Orthostatic hypotension, orthostatic vitals positive IV fluids Folic acid deficiency, start folic acid Hepatomegaly Urine toxicology screen, alcohol levels Attestations 2 Medical Necessity Statement*: Patient requires hospitalization for chest pain, presyncope, orthostatic hypotension severe peripheral neuropathy, folic acid deficiency Diagnoses Chest pain R07.9 Chest pain type: unspecified Hypothyroid E03.9 Hypertension I10 Tachycardia R00.0 Near syncope R55 Orthostatic hypotension I95.1 Folic acid deficiency E53.8
--- NOTE | 2023-06-20 15:39 | USCV_ITS ---
Alysa Goodman Age: 57 Gender: F : 1965 Exam Date: 06/20/2023 02:17 Ordering Phys: Milton Dodson MD Technologist: CRISTIAN Exam Location: [facility] [place] Indication: tachycardia BP: 142 / 80 HR: 94 Rhythm: Sinus Technical Quality: Adequate MEASUREMENTS (Male / Female) Normal Values 2D ECHO LV Diastolic Diameter PLAX 4.3 cm 4.2 - 5.9 / 3.9 - 5.3 cm IVS Diastolic Thickness 1.4 cm 0.6 - 1.0 / 0.6 - 0.9 cm IVS Systolic Thickness 1.8 cm LVPW Diastolic Thickness 1.4 cm 0.6 - 1.0 / 0.6 - 0.9 cm LVPW Systolic Thickness 2.0 cm LVOT Diameter 2.2 cm LV Ejection Fraction 2D Teich 67.5 % LV Ejection Fraction MOD 2C 51.2 % LV Ejection Fraction 2C AL 52.0 % LA Diameter 3.8 cm Aorta at Sinotubular Diameter 3.2 cm IVC Diameter 0.7 cm M-MODE LA Ao Ratio MM 1.1 AV Cusp Separation MM 1.9 cm DOPPLER AV Peak Velocity 115.0 cm/s LVOT Peak Velocity 98.0 cm/s AV Area Cont Eq vti 3.1 cm squared AV Area Cont Eq pk 3.1 cm squared MV Peak Velocity 66.0 cm/s MV Area PHT 2.1 cm squared Mitral E to A Ratio 0.8 TV Peak Velocity 225.3 cm/s TR Peak Velocity 251.0 cm/s TR Peak Gradient 25.2 mmHg TV Peak E Velocity 44.0 cm/s Right Atrial Pressure 3.0 mmHg Pulmonary Artery Systolic Pressu 28.2 mmHg PV Peak Velocity 88.0 cm/s FINDINGS Left Ventricle Normal left ventricular size and systolic function, EF 60% (visual).mild left ventricular hypertrophy. No regional wall motion abnormalities. Grade I/IV diastolic dysfunction (abnormal relaxation filling pattern), normal to mildly elevated filling pressures. Right Ventricle The right ventricle is normal in size and function. Right Atrium The right atrium is normal in size. Left Atrium Mildly increased left atrial size. Mitral Valve Mild mitral annular calcification. Aortic Valve Minimally thickened aortic valve Tricuspid Valve Moderate tricuspid valve regurgitation. Estimated pulmonary artery peak systolic pressure 28 mmHg Pulmonic Valve Mild pulmonary valve regurgitation. Pericardium No pericardial effusion. Aorta Normal ascending aorta dimension. IVC Normal inferior vena cava. CONCLUSIONS Normal left ventricular size and systolic function, EF 60% (visual).mild left ventricular hypertrophy. No regional wall motion abnormalities. Grade I/IV diastolic dysfunction (abnormal relaxation filling pattern), normal to mildly elevated filling pressures. Mildly increased left atrial size. Mild mitral annular calcification. Minimally thickened aortic valve. Moderate tricuspid valve regurgitation. Estimated pulmonary artery peak systolic pressure 28 mmHg. Mild pulmonary valve regurgitation. There is no pericardial effusion. There are no intracardiac masses. Compared to the study from 08/01/2022, there may not be a significant change Dr Ana Luisa Morrow MD [facility] (Electronically Signed) Final Date: 20 June 2023 18:07 S
[2023-06-20] MEDS: enoxaparin 40 mg/0.4 mL Syringe SUBCUT (16:28)
[2023-06-20] MEDS: pantoprazole 40 mg SDV IVP (16:28)
[2023-06-20] MEDS: sodium chloride 0.9% 1,000 ML 75 ML IV (16:30)
--- NOTE | 2023-06-20 16:39 | ECG_ITS ---
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 Measurements Intervals [place] Rate: 86 P: 119 OR: 143 QRS: 142 QRSD: 91 T: 168 QT: 353 QTc: 424 Interpretive Statements SINUS RHYTHM ARM LEADS REVERSED [INVERTED P AND QRS IN I] Compared to ECG 06/20/2023 13:06:17 Sinus tachycardia no longer present ST (T wave) deviation no longer present Electronically Signed On 06-21-2023 0:06:43 CDT by Ana Luisa Morrow M.D. [id number]
[2023-06-20 17:58] LABS: Troponin 5 6HR 29.35 ng/L (0-10); Troponin 5 6HR Delta 1.35 ng/L (0-12)
[2023-06-20] MEDS: pregabalin 25 mg Capsule PO (20:36)
[2023-06-20] MEDS: predniSONE 5 mg Tablet PO (20:36)
[2023-06-21] VITALS (9 sets, daily range): BP systolic 135–161; BP diastolic 82–103; PULSE 80–104; RESP 16–17; TEMP 36.3–36.7; O2SAT 96–98
[2023-06-21] MEDS: oxyCODONE-APAP 5-325 mg Tablet 1 TAB PO (02:36)
[2023-06-21] MEDS: sodium chloride 0.9% 1,000 ML 75 ML IV (05:22)
[2023-06-21 05:46] LABS: Basophils % 1.2 %; Eosinophils # 0.1 10^3/uL (0.0-0.8); Eosinophils % 2.7 %; Hematocrit 36.6 % (36-47); Lymphocytes # 1.4 10^3/uL (0.8-4.8); Lymphocytes % 53.8 %; Mean Corpuscular HGB Conc 32.8 g/dL (30-55); Mean Corpuscular Hemoglobin 37.7 pg (27-33); Mean Corpuscular Volume 115.1 fl (85-98); Mean Platelet Volume 10.3 fL (7.4-10.4); Monocytes # 0.3 10^3/uL (0.2-0.9); Monocytes % 11.2 %; Neutrophils % 31.1 %; Nucleated Red Blood Cells % 0 %; Platelet Count 106 10^3/cmm (157-399); Red Blood Count 3.18 10^6/uL (3.85-5.65); Red Cell Distribution Width 15.3 % (12.1-15.1)
[2023-06-21 05:57] LABS: Neutrophils # 0.81 10^3/uL (1.8-7.7)
[2023-06-21 06:11] LABS: Alanine Aminotransferase 7 U/L (0-33); Albumin Level 2.9 g/dL (3.5-5.2); Alkaline Phosphatase 146 U/L (35-105); Anion Gap 13.5 (5-19); Aspartate Amino Transferase 46 U/L (0-32); Blood Urea Nitrogen 8 mg/dL (6-20); Calcium 8.2 mg/dL (8.5-10.5); Carbon Dioxide 27 mmol/L (22-29); Chloride 105 mmol/L (98-107); Creatinine Clr Calc Pharmacy 125.0921; Globulin 2.2 g/dL (1.3-4.6); Glomerular Filtration Rate 126.7 mL/min (90-130); Glucose 103 mg/dL (65-115); Magnesium 1.6 mg/dL (1.7-2.3); Osmolality Calculated 293 mOsm/kg (285-295); Phosphorus 3.2 mg/dL (2.5-4.5); Potassium 3.5 mmol/L (3.5-5.1); Sodium 142 mmol/L (136-145); Total Bilirubin 0.8 mg/dL (0.15-1.2); Total Protein 5.1 g/dL (6.6-8.7)
[2023-06-21] MEDS: sulfaSALAzine 500 mg Tablet 1000 MG PO (08:40)
[2023-06-21] MEDS: folic acid 1 mg Tablet PO (08:45)
[2023-06-21] MEDS: multivitamin therapeutic Tablet 1 TAB PO (08:45)
[2023-06-21] MEDS: amlodipine 10 mg Tablet 5 MG PO (08:45)
[2023-06-21] MEDS: levothyroxine 50 mcg Tablet 25 MCG PO (08:53)
[2023-06-21 09:50] LABS: PROTEIN, TOTAL 5.5 g/dL (6.1-8.1)
[2023-06-21 10:15] LABS: Triglycerides 79 mg/dL (0-150)
--- NOTE | 2023-06-21 11:07 | PM.DCS ---
Discharge Providers Date of Admission: 06/19/23 14:55 Date of Discharge: June 21, 2023 Attending Provider at Admission: Milton Dodson MD Attending Provider at Discharge: Milton Dodson MD Primary Care Provider: Randee Klein Diagnoses at Discharge Discharge Diagnosis (1) Chest pain: Status: Inactive Qualifiers: Chest pain type: unspecified Qualified Code(s): R07.9 - Chest pain, unspecified (2) Hypothyroid: Status: Acute (3) Hypertension: Status: Acute (4) Tachycardia: Status: Acute (5) Near syncope: Status: Acute (6) Orthostatic hypotension: Status: Acute (7) Folic acid deficiency: Status: Acute Reason for Visit Reason for Visit: Chest pain Hospital Course Hospital Course Alysa Goodman is a 57 year old female with a past medical history of hypertension, peripheral neuropathy, history of possible mini stroke associated with vitreal occlusion, inflammatory arthritis, who presents to [facility] as a rapid response from endocrinology clinic. Patient has been complaining of chest pain, palpitations, visual changes, severe neuropathy to bilateral lower extremities. Patient tells me that she intermittently has chest palpitations like her chest is beating out of her chest, anterior chest discomfort nonradiating associated feeling lightheaded dizzy that she is almost going to pass out, she does report intermittent blurry vision, but none currently, patient is currently no focal weakness, but does have very severe neuropathy in bilateral lower extremities, so much so that moving the covers over her feet causes excruciating pain Patient was admitted for chest pain, ekg no acute st-t wave changes, 6 hour troponin 29, no clinically significant delta, cardiac echo no acute findings, cardiac symptoms seem more musculoskeletal in nature, no recurrent chest pain, discharged on aspirin, statin, nitroglycerin PRN for chest pain, patient was advised if any recurrent chest pain to come back to emergency room For patient presysncope, positive orthostatic vitals, received IV hydration, improved, but has some degree of orthostatsus persistent likely secondary to neuroapthy Ferritin 859, etiology uncertain follow up with dr. whittington folic acid deficiency, discharged on folic acid patient developed neutropenia during hospitaliztion, etiology uncertain, possibly secondary to leflunomide, and sulfasalazine, which i have instructed patient to hold. Follow up with Dr. Whittington. Patient was advised if she has any fever, chill, cough, to go to emergency room. She on discharge denies fever, chills, no cough, no abdominal pain, no diarrhea, no dysuria, no flank pain for neuropathy, etiology uncertain, follow upo with dr. esquivel for consideration of nerve biopsy, due to severe pain, not improving with gabapentin or lyrica, discharged patient with oxycodone to be used sparingly for pain, donot drive, or drink or operate heavy machinery while taking medication, donot take with other medications Physical Exam Const: COMMON NORMALS: no acute distress and patient oriented x3 Resp: COMMON NORMALS: normal respiratory effort, No retractions, No use of accessory muscles and clear to auscultation bilaterally AUSCULTATION: clear to auscultation bilaterally Cardio: COMMON NORMALS: regular rate, regular rhythm, S1 normal heart sound present and S2 normal heart sound present RATE: regular rate RHYTHM: regular rhythm HEART SOUNDS: S1 normal heart sound present and S2 normal heart sound present GI: COMMON NORMALS: Normal to inspection, nondistended, normoactive bowel sounds present and non-tender Extremity: COMMON NORMALS: no pedal edema Neuro: COMMON NORMALS: patient oriented x3 Psych: COMMON NORMALS: mental status grossly normal Discharge Data Studies Completed and Pending Completed Studies During Hospitalization Category Date Time Status CT angio chest PE protcl [id number] Stat Cat Scan 06/19/23 12:[address] head wo con* [id number] Stat Cat Scan 06/19/23 09:12 Completed XR chest 1V portable [id number] Stat Exams 06/19/23 10:09 Completed CV carotid duplex BI* [id number] Routine Ultrasound 06/19/23 15:39 Completed CV. echo complete* [id number] Routine Ultrasound 06/20/23 15:39 Completed Pending at discharge Category Date Time Status Ceruloplasmin Stat Lab 06/19/23 16:19 Received Complete Blood Count w/Auto AM LABS Lab 06/22/23 04:00 Ordered Comprehensive Metabolic Panel AM LABS Lab 06/22/23 04:00 Ordered Fibrinogen Stat Lab 06/21/23 09:29 Ordered Heavy Metals Panel (Venous) Routine Lab 06/19/23 16:19 Received Magnesium AM LABS Lab 06/22/23 04:00 Ordered Phosphorus AM LABS Lab 06/22/23 04:00 Ordered SPEP [Total Protein Electrophoresis] Routine Lab 06/19/23 16:19 Results Urinalysis Stat Lab 06/21/23 08:35 Uncollected Urine Protein Electrop Random Routine Lab 06/20/23 10:36 Ordered Varicella Zoster IGG&IGM Stat Lab 06/19/23 16:19 Received Laboratory Results WBC 2.60 10^3/uL (3.29-11.43) L 06/21/23 05:33 RBC 3.18 10^6/uL (3.85-5.65) L 06/21/23 05:33 Hgb 12.00 g/dL (11.27-16.99) 06/21/23 05:33 Hct 36.6 % (36-47) 06/21/23 05:33 MCV 115.1 fl (85-98) H 06/21/23 05:33 MCH 37.7 pg (27-33) H 06/21/23 05:33 MCHC 32.8 g/dL (30-55) 06/21/23 05:33 RDW 15.3 % (12.1-15.1) H 06/21/23 05:33 Plt Count 106 10^3/cmm (157-399) L 06/21/23 05:33 MPV 10.3 fL (7.4-10.4) 06/21/23 05:33 Neut % (Auto) 31.1 % 06/21/23 05:33 Lymph % (Auto) 53.8 % 06/21/23 05:33 [place] % (Auto) 11.2 % 06/21/23 05:33 Eos % (Auto) 2.7 % 06/21/23 05:33 Baso % (Auto) 1.2 % 06/21/23 05:33 Neut # (Auto) 0.81 10^3/uL (1.8-7.7) L* 06/21/23 05:33 Lymph # (Auto) 1.4 10^3/uL (0.8-4.8) 06/21/23 05:33 [place] # (Auto) 0.3 10^3/uL (0.2-0.9) 06/21/23 05:33 Eos # (Auto) 0.1 10^3/uL (0.0-0.8) 06/21/23 05:33 Baso # (Auto) 0.0 10^3/uL (0.0-0.1) 06/21/23 05:33 Nucleated RBC % (auto) 0 % 06/21/23 05:33 Nucleated RBCs # 0.0 /100WBC 06/21/23 05:33 ESR 20 mm/hr (0-15) H 06/19/23 10:22 Sodium 142 mmol/L (136-145) 06/21/23 05:33 Potassium 3.5 mmol/L (3.5-5.1) 06/21/23 05:33 Chloride 105 mmol/L (98-107) 06/21/23 05:33 Carbon Dioxide 27 mmol/L (22-29) 06/21/23 05:33 Anion Gap 13.5 (5-19) 06/21/23 05:33 BUN 8 mg/dL (6-20) 06/21/23 05:33 Creatinine 0.5 mg/dL (0.5-0.9) 06/21/23 05:33 GFR Calculation 126.7 mL/min (90-130) 06/21/23 05:33 Glucose 103 mg/dL (65-115) 06/21/23 05:33 Estimat Average Glucose 82 06/19/23 10:22 Hemoglobin A1c 4.5 % (4.0-6.0) 06/19/23 10:22 Calculated Osmolality 293 mOsm/kg (285-295) 06/21/23 05:33 Uric Acid 8.9 mg/dL (2.4-5.7) H 06/19/23 10:22 Calcium 8.2 mg/dL (8.5-10.5) L 06/21/23 05:33 Phosphorus 3.2 mg/dL (2.5-4.5) 06/21/23 05:33 Magnesium 1.6 mg/dL (1.7-2.3) L 06/21/23 05:33 Iron 119 ug/dL (37-145) 06/20/23 05:06 TIBC 251 mcg/dl 06/20/23 05:06 % Saturation 47.4 % (20-50) 06/20/23 05:06 Unsat Iron Binding 132 ug/dL (112-347) 06/20/23 05:06 Transferrin 218 mg/dL (200-360) 06/20/23 05:06 Ferritin 859 ng/mL (15-150) H 06/19/23 10:22 Total Bilirubin 0.8 mg/dL (0.15-1.2) 06/21/23 05:33 AST 46 U/L (0-32) H 06/21/23 05:33 ALT 7 U/L (0-33) 06/21/23 05:33 Alkaline Phosphatase 146 U/L (35-105) H 06/21/23 05:33 Creatine Kinase 40 U/L (26-192) 06/19/23 10:22 Troponin T Baseline 28 ng/L (0-10) H 06/20/23 10:48 Troponin T 120 Minute 29.00 ng/L (0-10) H 06/20/23 12:34 Delta Troponin T 1.00 ABS# (0-10) 06/20/23 12:34 Troponin T Hi Sens 6Hr 29.35 ng/L (0-10) H 06/20/23 17:33 Troponin T Hi Sens 6Hr Delta 1.35 ng/L (0-12) 06/20/23 17:33 C-Reactive Protein 6.8 mg/L (0.0-4.9) H 06/19/23 10:22 Total Protein 5.1 g/dL (6.6-8.7) L 06/21/23 05:33 Albumin 2.9 g/dL (3.5-5.2) L 06/21/23 05:33 Globulin 2.2 g/dL (1.3-4.6) 06/21/23 05:33 Triglycerides 79 mg/dL (0-150) 06/21/23 05:33 Vitamin B12 388 pg/mL (232-1245) 06/19/23 10:22 Folate 2.1 ng/mL (4.8-37.3) L 06/19/23 10:22 Procalcitonin 0.09 ng/mL (0-0.5) 06/19/23 10:22 TSH 2.60 uIU/mL (0.27-4.20) 06/19/23 10:22 Free T4 1.36 ng/dL (0.82-1.77) 06/19/23 10:22 Free T3 1.7 PG/ML (2.0-4.4) L 06/19/23 10:22 Random Cortisol 13.51 ug/dL (2.47-19.5) 06/19/23 10:22 Urine Color Susie (Yellow) 06/19/23 11:46 Urine Appearance Turbid (CLEAR) A 06/19/23 11:46 Urine pH 5 (5-7) 06/19/23 11:46 Ur Specific Zirconia 1.020 (1.005-1.030) 06/19/23 11:46 Urine Protein 1+ (Negative) H 06/19/23 11:46 Urine Glucose (UA) Norm (Normal) 06/19/23 11:46 Urine Ketones 1+ (Negative) H 06/19/23 11:46 Urine Blood 2+ (Negative) H 06/19/23 11:46 Urine Nitrate Negative (Negative) 06/19/23 11:46 Urine Bilirubin 2+ (Negative) H 06/19/23 11:46 Urine Urobilinogen 4 mg/dL (Negative) H 06/19/23 11:46 Ur Leukocyte Esterase Trace (Negative) H 06/19/23 11:46 Urine RBC 0-4 /hpf (0-2) H 06/19/23 11:46 Urine WBC 5-10 /hpf (0-5) H 06/19/23 11:46 Ur Squamous Epith Cells 10-15 /hpf (0-5) H 06/19/23 11:46 Amorphous Sediment 1+ /hpf 06/19/23 11:46 Urine Bacteria 1+ /hpf (NONE) H 06/19/23 11:46 Hyaline Casts 10-15 /lpf H 06/19/23 11:46 Urine Opiates Screen Positive ng/mL (Negative) H 06/19/23 11:46 Ur Barbiturates Screen Negative ng/mL (Negative) 06/19/23 11:46 Ur Phencyclidine Scrn Negative ng/mL (Negative) 06/19/23 11:46 Ur Amphetamines Screen Negative ng/mL (Negative) 06/19/23 11:46 U Benzodiazepines Scrn Positive ng/mL (Negative) H 06/19/23 11:46 Urine Cocaine Screen Negative ng/mL (Negative) 06/19/23 11:46 U Marijuana (THC) Screen Positive ng/mL (Negative) H 06/19/23 11:46 Ethyl Alcohol < 10 mg/dL (0-10) 06/19/23 10:22 RPR Nonreactive (Nonreactive) 06/19/23 10:22 Hepatitis A IgM Ab Non-reactive (Nonreactive) 06/19/23 10:22 Hep Bs Antigen Non-reactive (Nonreactive) 06/19/23 10:22 Hep B Core IgM Ab Non-reactive (Nonreactive) 06/19/23 10:22 Hepatitis C Antibody Non-reactive (Nonreactive) 06/19/23 10:22 HIV 1&2 Ab & HIV 1 Ag Non-reactive (Non-Reactiv) 06/19/23 10:22 HIV 1&2 Antibody Non-reactive (Non-Reactiv) 06/19/23 10:22 Vitals Last Vital Signs Temp 97.4 F L 06/21/23 07:35 Pulse 96 06/21/23 10:23 Resp 17 06/21/23 07:35 BP 153/89 06/21/23 10:23 Pulse Ox 98 06/21/23 07:35 O2 Del Method Room Air 06/21/23 07:35 Discharge Plan Discharge Patient Disposition: Home Condition: Stable Prescriptions: New folic acid 1 mg Tablet 1 mg PO BID 30 Days Qty: 60 0RF oxycodone-acetaminophen 5-325 mg Tablet 1 tab PO Q12H PRN (Reason: Moderate Pain) 7 Days Qty: 14 0RF aspirin 81 mg capsule 81 mg PO DAILY 30 Days Qty: 30 0RF atorvastatin 40 mg tablet 40 mg PO DAILY 30 Days Qty: 30 0RF nitroglycerin 0.4 mg tablet, sublingual 0.4 mg sublingual Q5M PRN (Reason: chest pain) 30 Days Qty: 30 0RF Rx Instructions: do not exceed 3 doses per episode Continued prednisone 5 mg tablet 5 mg PO DAILY Qty: 90 1RF levothyroxine 25 mcg tablet See Rx Instructions .ROUTE .COMPLEX Qty: 30 0RF Dose Instruction: TAKE 1 TABLET BY MOUTH DAILY SUNDAY THRU SUNDAY, THEN 2 TABLETS BY MOUTH ON SUNDAY Rx Instructions: TAKE 1 TABLET BY MOUTH DAILY SUNDAY THRU SUNDAY, THEN 2 TABLETS BY MOUTH ON SUNDAY multivitamin [Multiple Vitamins] Tablet 1 tab PO DAILY biotin 5 mg Tablet 5 mg PO DAILY amlodipine 10 mg tablet 5 mg PO DAILY Held leflunomide 20 mg tablet 20 mg PO DAILY Qty: 30 2RF Hold Instructions: Resume on 07/23/23. hold until you see dr whittington sulfasalazine 500 mg tablet 1,000 mg PO BID Hold Instructions: Resume on 07/31/23. hold unitl you see dr whittington Discharge Orders: Discharge Order (Routine); Ordered 06/21/23 Ordered By: Milton Dodson Referrals: More Esquivel MD [Physician] - 1 week Randee Klein PA [Primary Care Provider] - Fer Whittington MD [Hospitalist] - 1 week Rosendo Huston DO [Physician] - 4-7 days (Left hip pain, injection) Discharge Diet: Regular and Cardiac Discharge Activity: Resume usual activity Patient Instructions: Opioid Safety, Pain Management Activity Restrictions/Additional Instructions: -if you have recurrent chest pain, please go to emergency room -for your left hip pain follow up with dr whittington -for your neuropathy follow up with dr esquivel -please us oxycodone sparingly for neuropathic pain, do not drive, or drink or operate heavy machinery while taking medications, donot take with other medications -for your neutropenia, hold medications as above, monitor for fever, chills, cough, if so go to emergency room Discharge Attestations Time Spent in Discharge Care*: greater than 30 min Quality Metrics Clinical Quality Measures [ No reported AMI, CVA or VTE this stay] Coding Level of Care Code 41213 Total time (in minutes) for Discharge: 45 Diagnoses Chest pain R07.9 Chest pain type: unspecified Hypothyroid E03.9 Hypertension I10 Tachycardia R00.0 Near syncope R55 Orthostatic hypotension I95.1 Folic acid deficiency E53.8
[2023-06-21 11:49] LABS: Fibrinogen 428 mg/dL (174-498)
[2023-06-21 11:50] LABS: Lead Blood 1.2 mcg/dL (<3.5)
[2023-06-21 12:54] LABS: Ceruloplasmin 30 mg/dL (18-53)
[2023-06-21 13:29] LABS: Add Urine Microscopic? NO; Charge for UA Resulting for Rev
--- NOTE | 2023-06-21 13:29 | PC.NURSE ---
Discussed discharge medications, held medications, follow up appointments, to resume normal activity, and Pain management recourses. Patient ask questions which were answered and verbalized understanding.
[2023-06-21 13:33] LABS: Bilirubin Urine Neg (Negative); Blood Urine Neg (Negative); Glucose Urine UA Norm (Normal); Ketones Urine Negative (Negative); Leukocyte Esterase Urine Negative (Negative); Nitrate Urine Negative (Negative); Protein Urine Neg (Negative); Specific Gravity, Urine 1.015 (1.005-1.030); Urine Appearance Clear (CLEAR); Urine Color Dark Yellow (Yellow); Urobilinogen Urine Norm (Negative); pH Urine 6 (5-7)
[2023-06-21 16:39] LABS: ALBUMIN 3.1 g/dL (3.8-4.8); ALPHA 1 GLOBULIN 0.3 g/dL (0.2-0.3); ALPHA 2 GLOBULIN 0.9 g/dL (0.5-0.9); BETA 1 GLOBULIN 0.3 g/dL (0.4-0.6); BETA 2 GLOBULIN 0.4 g/dL (0.2-0.5); GAMMA GLOBULIN 0.5 g/dL (0.8-1.7)
[2023-06-22 10:25] LABS: Arsenic Blood <10 mcg/L (<23); Mercury Blood <5 mcg/L (<OR=10)
[2023-06-23 14:20] LABS: Creatinine, Random Urine 69 mg/dL (20-275); Protein, Total, Random 11 mg/dL (5-24); Protein/Creatinine Ratio 0.159 (0.024-0.184); Protein/Creatinine Ratio 159 mg/g creat (24-184)
[2023-06-27 12:10] LABS: Albumin,Urine Random 100 %; Alpha-1-Globulins Urine Random 0 %; Alpha-2-Globulins Urine Random 0 %; Beta-Globulin,Urine Random 0 %; Gamma Globulin,Urine Random 0 %
== END 2023-06-21 14:00 | disposition home or self-care (01) ==
LOC: ER 14:46 → ER IP 18:46 → MEDSURG 18:46
PROVIDERS: Admitting Provider Family Medicine; Emergency Provider Family Medicine; PCP Physician Assistant; Visit Provider Family Medicine
DX: R00.0 Tachycardia, unspecified (principal); I95.1 Orthostatic hypotension; M79.7 Fibromyalgia; Z79.890 Hormone replacement therapy; E03.9 Hypothyroidism, unspecified; I10 Essential (primary) hypertension; R06.02 Shortness of breath; E53.8 Deficiency of other specified B group vitamins; D70.9 Neutropenia, unspecified; R16.0 Hepatomegaly, not elsewhere classified; G62.9 Polyneuropathy, unspecified
CPT/HCPCS: 36415; 70450; 71045; 71275; 80053; 80074; 80306; 80307; 81001; 81003; 82175; 82390; 82533; 82550; 82570; 82607; 82728; 82746; 83036; 83540; 83550; 83655; 83735; 83825; 84100; 84145; 84155; 84156; 84165; 84166; 84439; 84443; 84466; 84478; 84481; 84484; 84550; 85025; 85384; 85651; 86140; 86592; 86787; 87806; 93005; 93306; 93880; 94664; 96361; 96372; 96374; 99215; 99285; C9113; G0378; J1650; J7030; J7512; Q9967

== ENCOUNTER 2023-06-24 02:06 | Emergency (ER) | payer MEDICARE, SELFPAY ==
[2023-06-24 02:07] VITALS: BP 219/118; PULSE 101; RESP 20; TEMP 36.6; O2SAT 98; BMI 25.8
--- NOTE | 2023-06-24 02:19 | CTR_ITS ---
PROCEDURE INFORMATION: Exam: CT Cervical Spine Without Contrast Exam date and time: 06/24/2023 3:11 AM Age: 57 years old Clinical indication: Injury or trauma; Blunt trauma; Patient HX: EMS arrival from home for fall. Patient states she had possible syncopal episode while in kitchen and fell onto floor. Does not remember fall. Contusion to RT temporal. Contusion to upper lip with swelling. C collar in place. ; Additional info: Fall head inj TECHNIQUE: Imaging protocol: Computed tomography of the cervical spine without contrast. Radiation optimization: All CT scans at this facility use at least one of these dose optimization techniques: automated exposure control; mA and/or kV adjustment per patient size (includes targeted exams where dose is matched to clinical indication); or iterative reconstruction. COMPARISON: CR XR cervical spine 4-5V [id number] 11/15/2021 12:47 PM RADIATION DOSE METRICS: Total DLP (mGy-cm): 441.27 FINDINGS: Bones/joints: No acute fracture. There is slight grade 1 retrolisthesis C5 on C6 which is likely degenerative. Otherwise alignment is maintained. There is straightening of cervical lordosis. There is dwtc-pu-aldhiovg degenerative disc disease at C5-C6 and C6-C7. There is nwxl-cm-yzuskhpt spinal canal stenosis at C5-C6 and C6-C7 secondary to diffuse disc osteophyte bulging. Lungs: Lung apices are normal. Soft tissues: Unremarkable. CT/CT cervical spin wo con* [id number] IMPRESSION: No acute findings.
--- NOTE | 2023-06-24 02:19 | XRR_ITS ---
PROCEDURE INFORMATION: Exam: XR Left Hip Exam date and time: 06/24/2023 2:26 AM Age: 57 years old Clinical indication: Injury or trauma; Blunt trauma (contusions or hematomas); Patient HX: EMS arrival from home for fall. C/O left hip pain. TECHNIQUE: Imaging protocol: Radiologic exam of the left hip. Views: 2 or 3 views hip with pelvis when performed. COMPARISON: CT abdomen pelvis w con* [id number] 01/24/2022 2:21 PM FINDINGS: Bones/joints: There is mildly displaced transcervical/subcapital fracture of the left hip, resulting in mildly increased varus angulation. No dislocation. Soft tissues: Unremarkable. XR/XR hip LT 2-3V wo/w pel* [id number] IMPRESSION: Mildly displaced transcervical/subcapital fracture of the left hip.
--- NOTE | 2023-06-24 02:19 | CTR_ITS ---
PROCEDURE INFORMATION: Exam: CT Head Without Contrast Exam date and time: 06/24/2023 3:05 AM Age: 57 years old Clinical indication: Injury or trauma; Blunt trauma (contusions or hematomas); Patient HX: EMS arrival from home for fall. Patient states she had possible syncopal episode while in kitchen and fell onto floor. Does not remember fall. Contusion to RT temporal. Contusion to upper lip with swelling. C collar in place. ; Additional info: Fall head injury TECHNIQUE: Imaging protocol: Computed tomography of the head without contrast. Radiation optimization: All CT scans at this facility use at least one of these dose optimization techniques: automated exposure control; mA and/or kV adjustment per patient size (includes targeted exams where dose is matched to clinical indication); or iterative reconstruction. COMPARISON: CT head wo con* [id number] 06/19/2023 9:28 AM RADIATION DOSE METRICS: Total DLP (mGy-cm): 1059.59 FINDINGS: Brain: There is a tiny acute right frontal subdural hematoma. Please see image 38 of series 3 and image 39 of series 8. Cerebral ventricles: No ventriculomegaly. Paranasal sinuses: Visualized sinuses are unremarkable. No fluid levels. Mastoid air cells: Visualized mastoid air cells are well aerated. Bones/joints: Unremarkable. No acute fracture. Soft tissues: Unremarkable. CT/CT head wo con* [id number] IMPRESSION: Tiny new acute right frontal subdural hematoma without mass effect.
--- NOTE | 2023-06-24 02:19 | CTR_ITS ---
PROCEDURE INFORMATION: Exam: CT Maxillofacial Without Contrast Exam date and time: 06/24/2023 3:08 AM Age: 57 years old Clinical indication: Injury or trauma; Blunt trauma (contusions or hematomas); Lip/oral cavity; Patient HX: EMS arrival from home for fall. Patient states she had possible syncopal episode while in kitchen and fell onto floor. Does not remember fall. Contusion to RT temporal. Contusion to upper lip with swelling. C collar in place. ; Additional info: Fall facial inj TECHNIQUE: Imaging protocol: Computed tomography of the face without contrast. Radiation optimization: All CT scans at this facility use at least one of these dose optimization techniques: automated exposure control; mA and/or kV adjustment per patient size (includes targeted exams where dose is matched to clinical indication); or iterative reconstruction. COMPARISON: CT head wo con* [id number] 06/24/2023 3:05 AM RADIATION DOSE METRICS: Total DLP (mGy-cm): 537.98 FINDINGS: Orbital cavities: Orbits are normal. Globes are unremarkable. Bones/joints: No acute fracture. Paranasal sinuses: There is achg-ka-waixfcno paranasal sinus disease. Soft tissues: Unremarkable. CT/CT facial bones wo con* [id number] IMPRESSION: No evidence of acute fracture.
--- NOTE | 2023-06-24 02:21 | ECG_ITS ---
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 Measurements Intervals [place] Rate: 98 P: 0 NE: 0 QRS: 51 QRSD: 105 T: 49 QT: 342 QTc: 437 Interpretive Statements Sinus rhythm with infrequent PACs INCOMPLETE RIGHT BUNDLE BRANCH BLOCK [90+ ms QRS DURATION, TERMINAL R IN V1/V2, 40+ ms S IN I/aVL/V4/V5/V6] ABNORMAL RHYTHM ECG Compared to ECG 06/20/2023 16:39:10 Incomplete right bundle-branch block now present Sinus rhythm no longer present Electronically Signed On 06-24-2023 18:37:31 CDT by Ana Luisa Morrow M.D. [id number]
--- NOTE | 2023-06-24 02:23 | ED_ITS ---
HPI - Fall 2 General: Chief Complaint: Fall Stated Complaint: Fall Time Seen by Provider: 06/24/23 02:11 History of Present Illness: 57-year-old female who fell at home. Sh e states that she was in the kitchen. She believes her hip frozen that she has been having significant hip pain on the left on and off for about a month. She believes she may have lost consciousness due to the fall. She hit her face, presumably on the floor although she does not have a memory of this. She lives at home alone, and dial 911 after her dog evidently brought her phone. She has a history of carotid disease, hypertension, peripheral neuropathy. 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 Positive ANDREW (antinuclear antibody) Inflammatory arthritis Gout Hypertension Surgical History History of foot surgery (2016) Plantar fasciitis History of surgical removal of pilonidal cyst (1999) History of carpal tunnel release (1999) History of bunionectomy of left great toe (2018) History of bunionectomy of right great toe (01/24/23) History of esophagogastroduodenoscopy (EGD) (03/29/23) [facility] 8 years History of ventral hernia repair (05/08/22) Social History Smoking and tobacco/nicotine status: never used tobacco/nicotine Alcohol intake: current Physical Exam 2 Const: GENERAL APPEARANCE: cooperative and frail appearing; not ill appearing HENMT: COMMON NORMALS: normocephalic HEAD & SCALP: normocephalic FACE & SINUS: sinus tenderness (Right) frontal and maxillary and ecchymosis NOSE: A bnormal external nose present nasal ecchymosis and nasal swelling and Epistaxis present (Resolved) Eye: COMMON NORMALS: Equal, round and reactive pupils present and EOMs intact bilaterally PUPIL: Yes Equal, round and reactive pupils present Neck/C-Spine: GENERAL: Yes trachea midline and No tender Chest: CHEST: Yes Symmetrical chest wall rise Resp: COMMON NORMALS: normal respiratory effort, No use of accessory muscles and clear to auscultation bilaterally AUSCULTATION: clear to auscultation bilaterally Cardio: COMMON NORMALS: regular rate and regular rhythm RATE: regular rate RHYTHM: regular rhythm GI: COMMON NORMALS: Normal to inspection, nondistended, normoactive bowel sounds present Extremity: NARRATIVE EXTREMITY EXAM: Left hip pain with range of motion Neuro: JEAN COMA SCALE: document GCS findings Jean coma scale eye opening: Spontaneous [place]rington coma scale verbal response: Orientated [place] coma scale motor response: Obey commands Jean coma scale total score: 15 Course 2 Vital Signs: Vital signs: Vital Signs Temperature 97.8 F 06/24/23 02:07 Pulse Rate 96 06/24/23 03:44 Respiratory Rate 16 06/24/23 03:44 Blood Pressure 141/88 06/24/23 03:44 Pulse Oximetry 93 06/24/23 03:44 Oxygen Delivery Me thod Nasal Cannula 06/24/23 03:44 Oxygen Flow Rate 2 06/24/23 03:44 MDM - Fall Medical Decision Making 57-year-old female followed ground-level. She has a mildly displaced subcapital femoral neck fracture. Laboratory reveals platelet count 128, bicarbonate 20 no urinary tract infection. Alcohol level is 209. Garcia is placed. To spoke with radiology. It appears the patient has a small, less than 2 mm right frontal subdural hematoma. Consulted neurosurgery at [facility] in [place]. They wish for her to be evaluated in the ER there for the subdural. We have an accepting physician to the ER there. She will go by ground transfer as she does not have neurological symptoms currently, and appears stable. Lab Data 06/24/23 02:45 06/24/23 02:45 Radiology Impressions Cervical Spine CT 06/24/23 02:19 IMPRESSION: No acute findings. Face CT 06/24/23 02:19 IMPRESSION: No evidence of acute fracture. Head CT 06/24/23 02:19 IMPRESSION: Tiny new acute right frontal subdural hematoma without mass effect. ADDENDUM: 06/24/23 0409 THIS REPORT CONTAINS FINDINGS THAT MAY BE CRITICAL TO PATIENT CARE. The findings were verbally communicated via telephone conference with CARRINGTON RICARDO at 4:07 AM CDT on 06/24/2023. The findings were acknowledged and understood. Hip/Pelvis X-Ray 06/24/23 02:19 IMPRESSION: Mildly displaced transcervical/subcapital fracture of the left hip. Chest X-Ray 06/24/23 02:32 IMPRESSION: No acute findings. Laboratory Results WBC 3.85 10^3/uL (3.29-11.43) 06/24/23 02:45 RBC 3.25 10^6/uL (3.85-5.65) L 06/24/23 02:45 Hgb 12.60 g/dL (11.27-16.99) 06/24/23 02:45 Hct 38.7 % (36-47) 06/24/23 02:45 MCV 119.1 fl (85-98) H 06/24/23 02:45 MCH 38.8 pg (27-33) H 06/24/23 02:45 MCHC 32.6 g/dL (30-55) 06/24/23 02:45 RDW 15.8 % (12.1-15.1) H 06/24/23 02:45 Plt Count 128 10^3/cmm (157-399) L 06/24/23 02:45 MPV 10.0 fL (7.4-10.4) 06/24/23 02:45 Neut % (Auto) 44.1 % 06/24/23 02:45 Lymph % (Auto) 36.1 % 06/24/23 02:45 [place] % (Auto) 14.5 % 06/24/23 02:45 Eos % (Auto) 3.4 % 06/24/23 02:45 Baso % (Auto) 1.6 % 06/24/23 02:45 Neut # (Auto) 1.70 10^3/uL (1.8-7.7) L 06/24/23 02:45 Lymph # (Auto) 1.4 10^3/uL (0.8-4.8) 06/24/23 02:45 [place] # (Auto) 0.6 10^3/uL (0.2-0.9) 06/24/23 02:45 Eos # (Auto) 0.1 10^3/uL (0.0-0.8) 06/24/23 02:45 Baso # (Auto) 0.1 10^3/uL (0.0-0.1) 06/24/23 02:45 Nucleated RBC % (auto) 0 % 06/24/23 02:45 Nucleated RBCs # 0.0 /100WBC 06/24/23 02:45 PT 13.50 SECONDS (12.1-14.9) 06/24/23 02:45 INR 1.00 (0.8-1.2) 06/24/23 02:45 APTT 23.5 SECONDS (23.9-36.7) L 06/24/23 02:45 Sodium 144 mmol/L (136-145) 06/24/23 02:45 Potassium 3.5 mmol/L (3.5-5.1) 06/24/23 02:45 Chloride 105 mmol/L (98-107) 06/24/23 02:45 Carbon Dioxide 20 mmol/L (22-29) L 06/24/23 02:45 Anion Gap 22.5 (5-19) H 06/24/23 02:45 BUN 7 mg/dL (6-20) 06/24/23 02:45 Creatinine 0.5 mg/dL (0.5-0.9) 06/24/23 02:45 GFR Calculation 126.7 mL/min (90-130) 06/24/23 02:45 Glucose 75 mg/dL (65-115) 06/24/23 02:45 Calculated Osmolality 295 mOsm/kg (285-295) 06/24/23 02:45 Calcium 8.2 mg/dL (8.5-10.5) L 06/24/23 02:45 Total Bilirubin 0.6 mg/dL (0.15-1.2) 06/24/23 02:45 AST 80 U/L (0-32) H 06/24/23 02:45 ALT 16 U/L (0-33) 06/24/23 02:45 Alkaline Phosphatase 174 U/L (35-105) H 06/24/23 02:45 Creatine Kinase 142 U/L (26-192) 06/24/23 02:45 Total Protein 5.7 g/dL (6.6-8.7) L 06/24/23 02:45 Albumin 3.0 g/dL (3.5-5.2) L 06/24/23 02:45 Globulin 2.7 g/dL (1.3-4.6) 06/24/23 02:45 Urine Color Yellow (Yellow) 06/24/23 02:53 Urine Appearance Clear (CLEAR) 06/24/23 02:53 Urine pH 7 (5-7) 06/24/23 02:53 Ur Specific [place] 1.000 (1.005-1.030) L 06/24/23 02:53 Urine Protein Neg (Negative) 06/24/23 02:53 Urine Glucose (UA) Norm (Normal) 06/24/23 02:53 Urine Ketones 1+ (Negative) H 06/24/23 02:53 Urine Blood Trace (Negative) H 06/24/23 02:53 Urine Nitrate Negative (Negative) 06/24/23 02:53 Urine Bilirubin Neg (Negative) 06/24/23 02:53 Urine Urobilinogen Neg mg/dL (Negative) 06/24/23 02:53 Ur Leukocyte Esterase Negative (Negative) 06/24/23 02:53 Urine RBC 0-4 /hpf (0-2) H 06/24/23 02:53 Urine WBC 0-4 /hpf (0-5) H 06/24/23 02:53 Ur Squamous Epith Cells 0-4 /hpf (0-5) H 06/24/23 02:53 Amorphous Sediment Not Reportable 06/24/23 02:53 Urine Bacteria Trace /hpf (NONE) 06/24/23 02:53 Ethyl Alcohol 209 mg/dL (0-10) H 06/24/23 02:45 All radiology interpretation(s) finalized by discharge Discharge Plan Discharge Patient Disposition: Xfer Short-Term Hosp Clinical Impression: Closed subcapital fracture of neck of left femur, Acute subdural hematoma, Alcohol intoxication Condition: Fair Coding Level of Care Code ED 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
[2023-06-24] MEDS: ondansetron 2 mg/ML SDV 2 mL 4 MG IVP (02:32)
[2023-06-24] MEDS: morphine 4 mg/mL SDV 1 mL IVP (02:32)
--- NOTE | 2023-06-24 02:32 | XRR_ITS ---
PROCEDURE INFORMATION: Exam: XR Chest Exam date and time: 06/24/2023 2:41 AM Age: 57 years old Clinical indication: Injury or trauma; Blunt trauma (contusions or hematomas); Patient HX: EMS arrival from home for fall. Patient states she had possible syncopal episode while in kitchen and fell onto floor. Does not remember fall. Contusion to RT temporal. Contusion to upper lip with swelling. C collar in place. TECHNIQUE: Imaging protocol: Radiologic exam of the chest. Views: 1 view. COMPARISON: CT angio chest PE protcl [id number] 06/19/2023 1:04 PM FINDINGS: Lungs: Unremarkable. No consolidation. Pleural spaces: Unremarkable. No pleural effusion. No pneumothorax. Heart/Mediastinum: Unremarkable. No cardiomegaly. Bones/joints: Unremarkable. XR/XR chest 1V portable [id number] IMPRESSION: No acute findings.
[2023-06-24 02:51] LABS: Basophils # 0.1 10^3/uL (0.0-0.1); Basophils % 1.6 %; Eosinophils # 0.1 10^3/uL (0.0-0.8); Eosinophils % 3.4 %; Hematocrit 38.7 % (36-47); Lymphocytes # 1.4 10^3/uL (0.8-4.8); Lymphocytes % 36.1 %; Mean Corpuscular HGB Conc 32.6 g/dL (30-55); Mean Corpuscular Hemoglobin 38.8 pg (27-33); Mean Corpuscular Volume 119.1 fl (85-98); Monocytes # 0.6 10^3/uL (0.2-0.9); Monocytes % 14.5 %; Neutrophils % 44.1 %; Nucleated Red Blood Cells % 0 %; Platelet Count 128 10^3/cmm (157-399); Red Blood Count 3.25 10^6/uL (3.85-5.65); Red Cell Distribution Width 15.8 % (12.1-15.1); White Blood Count 3.85 10^3/uL (3.29-11.43)
[2023-06-24 02:53] VITALS: BP 162/92; PULSE 93; RESP 22; O2SAT 100
[2023-06-24 03:05] LABS: Partial Thromboplastin Time 23.5 SECONDS (23.9-36.7)
[2023-06-24 03:12] LABS: Add Urine Microscopic? YES; Bacteria Urine TRACE /hpf; Bilirubin Urine Neg (Negative); Blood Urine Trace (Negative); Glucose Urine UA Norm (Normal); Ketones Urine 1+ (Negative); Leukocyte Esterase Urine Negative (Negative); Nitrate Urine Negative (Negative); Protein Urine Neg (Negative); RBC Urine 0-4 /hpf (0-2); Squamous Epithelial Cell Urine 0-4 /hpf (0-5); Urine Appearance Clear (CLEAR); Urine Color Yellow (Yellow); Urobilinogen Urine Neg (Negative); WBC Urine 0-4 /hpf (0-5); pH Urine 7 (5-7)
[2023-06-24 03:21] LABS: Alanine Aminotransferase 16 U/L (0-33); Alcohol Level 209 mg/dL (0-10); Alkaline Phosphatase 174 U/L (35-105); Anion Gap 22.5 (5-19); Aspartate Amino Transferase 80 U/L (0-32); Blood Urea Nitrogen 7 mg/dL (6-20); Calcium 8.2 mg/dL (8.5-10.5); Carbon Dioxide 20 mmol/L (22-29); Chloride 105 mmol/L (98-107); Creatine Phosphokinase 142 U/L (26-192); Creatinine Clr Calc Pharmacy 125.1618; Globulin 2.7 g/dL (1.3-4.6); Glomerular Filtration Rate 126.7 mL/min (90-130); Glucose 75 mg/dL (65-115); Osmolality Calculated 295 mOsm/kg (285-295); Potassium 3.5 mmol/L (3.5-5.1); Sodium 144 mmol/L (136-145); Total Bilirubin 0.6 mg/dL (0.15-1.2); Total Protein 5.7 g/dL (6.6-8.7)
[2023-06-24 03:44] VITALS: BP 141/88; PULSE 96; RESP 16; O2SAT 93
[2023-06-24 04:35] VITALS: BP 141/88; PULSE 96; RESP 16; O2SAT 93
== END 2023-06-24 04:46 | disposition short-term general hospital (02) ==
LOC: ER 03:33 → MEDSURG 04:07
PROVIDERS: Emergency Provider Emergency Medicine; PCP Physician Assistant
DX: S72.012A Unspecified intracapsular fracture of left femur, initial encounter for closed fracture (principal); S06.5XAA Traumatic subdural hemorrhage with loss of consciousness status unknown, initial encounter; F10.129 Alcohol abuse with intoxication, unspecified; Y90.7 Blood alcohol level of 200-239 mg/100 ml; I10 Essential (primary) hypertension; W19.XXXA Unspecified fall, initial encounter
CPT/HCPCS: 51702; 70450; 70486; 71045; 72125; 73502; 80053; 80307; 81001; 82550; 85025; 85610; 85730; 93005; 96374; 96375; 99285; J2270; J2405

== ENCOUNTER 2023-07-15 17:25 | Emergency (ER) | payer MEDICARE, SELFPAY ==
[2023-07-15 17:29] VITALS: BP 159/92; PULSE 106; TEMP 36.7; O2SAT 100; BMI 25.9
[2023-07-15 17:37] VITALS: BP 157/92; PULSE 101; RESP 16; O2SAT 97
--- NOTE | 2023-07-15 17:50 | W.ED.EXTPRO ---
HPI - Extremity Problem General: Chief complaint: Extremity Problem,Nontraumatic Stated complaint: LEFT FOOT PAIN S/P SURGERY Time Seen by Provider: 07/15/23 17:27 History of Present Illness: 58-year-old female who had a recent hip surgery who is now in [facility] for rehab who presents the emergency room with left foot pain and swelling. Pain started on her foot and has moved along skin on her left ankle. Is warm and red and somewhat tender to palpation. She has some swelling in the ankle but no pain with in the joint when she moves it. No systemic fevers. She also tells me the ESBL is going around the [facility] and that she he now has it in her urine. She says she has not started antibiotics for this yet. Review of Systems Narrative: Constitutional symptoms: Negative except as documented in HPI. Skin symptoms: Negative except as documented in HPI. Eye symptoms: Negative except as documented in HPI. ENMT symptoms: Negative except as documented in HPI. Respiratory symptoms: Negative except as documented in HPI. Cardiovascular symptoms: Negative except as documented in HPI. Gastrointestinal symptoms: Negative except as documented in HPI. Genitourinary symptoms: Negative except as documented in HPI. Musculoskeletal symptoms: Negative except as documented in HPI. Neurologic symptoms: Negative except as documented in HPI. Psychiatric symptoms: Negative except as documented in HPI. Endocrine symptoms: Negative except as documented in HPI. 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 Positive ANDREW (antinuclear antibody) Inflammatory arthritis Gout Hypertension Surgical History History of foot surgery (2016) Plantar fasciitis History of surgical removal of pilonidal cyst (2000) History of carpal tunnel release (1999) History of bunionectomy of left great toe (2019) History of bunionectomy of right great toe (01/24/23) History of esophagogastroduodenoscopy (EGD) (03/29/23) [facility] 8 years History of ventral hernia repair (05/08/22) Social History Smoking and tobacco/nicotine status: never used tobacco/nicotine Alcohol intake: current Physical Exam Narrative: EXAM NARRATIVE: General: Alert, no acute distress. Skin: Warm, dry. Swelling and redness of the skin of the left ankle and top of her foot. Laterally. Warm to touch. Head: Normocephalic, atraumatic. Neck: Supple, trachea midline. Eye: Extraocular movements are intact. Ears, nose, mouth and throat: mucosa moist. Cardiovascular: Regular, Normal peripheral perfusion. Respiratory: Lungs are clear to auscultation, respirations are non-labored, breath sounds are equal, Symmetrical chest wall expansion. Gastrointestinal: Soft, Nontender, Non distended, Normal bowel sounds. Musculoskeletal: Normal ROM, no deformity. Neurological: Alert and oriented, No focal neurological deficit observed. Psychiatric: Cooperative, appropriate mood & affect. Course Vital Signs: Vital signs: Vital Signs Temperature 98.1 F 07/15/23 17:29 Pulse Rate 101 H 07/15/23 19:37 Respiratory Rate 16 07/15/23 19:37 Blood Pressure 129/89 07/15/23 19:37 Pulse Oximetry 94 07/15/23 19:37 Oxygen Delivery Me thod Room Air 07/15/23 19:37 MDM - Extremity (Nontraumatic) Medical Decision Making Medical decision making: Differential diagnosis including but not limited to and based on the above HPI, review of systems and physical exam: Patient has what appears to be a cellulitis but is insistent she is concerned for a DVT so an ultrasound was ordered. Basic lab work including inflammatory markers were ordered. Orders placed to evaluate differential diagnosis based on the above differential, HPI and physical exam Lab Review: Laboratory results were reviewed and interpreted by myself the emergency room physician. CBC and BMP are unremarkable. Her CRP is elevated. Ultrasound is negative for DVT I reviewed the patient's medical record. Reexamination: Patient remained stable. No increased work of breathing. No altered mental status. No significant change in the rash on her leg/cellulitis. Lab Data 07/15/23 18:43 07/15/23 18:43 Radiology Impressions Venous Duplex 07/15/23 17:52 IMPRESSION: No sonographic evidence of deep vein thrombosis. Laboratory Results WBC 6.72 10^3/uL (3.29-11.43) 07/15/23 18:43 RBC 2.85 10^6/uL (3.85-5.65) L 07/15/23 18:43 Hgb 10.10 g/dL (11.27-16.99) L 07/15/23 18:43 Hct 32.3 % (36-47) L 07/15/23 18:43 MCV 113.3 fl (85-98) H 07/15/23 18:43 MCH 35.4 pg (27-33) H 07/15/23 18:43 MCHC 31.3 g/dL (30-55) 07/15/23 18:43 RDW 13.7 % (12.1-15.1) 07/15/23 18:43 Plt Count 198 10^3/cmm (157-399) 07/15/23 18:43 MPV 10.8 fL (7.4-10.4) H 07/15/23 18:43 Neut % (Auto) 53.8 % 07/15/23 18:43 Lymph % (Auto) 26.0 % 07/15/23 18:43 [place] % (Auto) 13.5 % 07/15/23 18:43 Eos % (Auto) 5.7 % 07/15/23 18:43 Baso % (Auto) 0.9 % 07/15/23 18:43 Neut # (Auto) 3.61 10^3/uL (1.8-7.7) 07/15/23 18:43 Lymph # (Auto) 1.8 10^3/uL (0.8-4.8) 07/15/23 18:43 [place] # (Auto) 0.9 10^3/uL (0.2-0.9) 07/15/23 18:43 Eos # (Auto) 0.4 10^3/uL (0.0-0.8) 07/15/23 18:43 Baso # (Auto) 0.1 10^3/uL (0.0-0.1) 07/15/23 18:43 Nucleated RBC % (auto) 0 % 07/15/23 18:43 Nucleated RBCs # 0.0 /100WBC 07/15/23 18:43 ESR 22 mm/hr (0-15) H 07/15/23 18:43 Sodium 142 mmol/L (136-145) 07/15/23 18:43 Potassium 4.3 mmol/L (3.5-5.1) 07/15/23 18:43 Chloride 106 mmol/L (98-107) 07/15/23 18:43 Carbon Dioxide 25 mmol/L (22-29) 07/15/23 18:43 Anion Gap 15.3 (5-19) 07/15/23 18:43 BUN 18 mg/dL (6-20) 07/15/23 18:43 Creatinine 0.6 mg/dL (0.5-0.9) 07/15/23 18:43 GFR Calculation 102.3 mL/min (90-130) 07/15/23 18:43 Glucose 107 mg/dL (65-115) 07/15/23 18:43 Calculated Osmolality 296 mOsm/kg (285-295) H 07/15/23 18:43 Calcium 9.3 mg/dL (8.5-10.5) 07/15/23 18:43 Total Bilirubin 0.5 mg/dL (0.15-1.2) 07/15/23 18:43 AST 14 U/L (0-32) 07/15/23 18:43 ALT 7 U/L (0-33) 07/15/23 18:43 Alkaline Phosphatase 135 U/L (35-105) H 07/15/23 18:43 C-Reactive Protein 65.6 mg/L (0.0-4.9) H 07/15/23 18:43 Total Protein 6.9 g/dL (6.6-8.7) 07/15/23 18:43 Albumin 3.6 g/dL (3.5-5.2) 07/15/23 18:43 Globulin 3.3 g/dL (1.3-4.6) 07/15/23 18:43 All radiology interpretation(s) finalized by discharge Other Data Assessment and plan: Lower extremity cellulitis -Cefepime in the emergency room. Home on Bactrim. - Discharged home - Discussed plan with patient. Answered any questions. - Evaluation and treatment of this problem were appropriate in the emergency setting. Discharge Plan Discharge Patient Disposition: Home Clinical Impression: Cellulitis Condition: Stable Prescriptions: New Bactrim DS 800-160 mg tablet 2 tab PO BID 10 Days Qty: 40 0RF No Action leflunomide 20 mg tablet 20 mg PO DAILY Qty: 30 2RF Hold Instructions: Resume on 07/23/23. hold until you see dr whittington prednisone 5 mg tablet 5 mg PO DAILY Qty: 90 1RF levothyroxine 25 mcg tablet See Rx Instructions .ROUTE .COMPLEX Qty: 30 0RF Dose Instruction: TAKE 1 TABLET BY MOUTH DAILY SUNDAY THRU SUNDAY, THEN 2 TABLETS BY MOUTH ON SUNDAY Rx Instructions: TAKE 1 TABLET BY MOUTH DAILY SUNDAY THRU SUNDAY, THEN 2 TABLETS BY MOUTH ON SUNDAY hydrocodone-acetaminophen 10-325 mg tablet 1 tab PO Q6H PRN (Reason: pain) 5 Days Qty: 20 0RF multivitamin [Multiple Vitamins] Tablet 1 tab PO DAILY biotin 5 mg Tablet 5 mg PO DAILY sulfasalazine 500 mg tablet 1,000 mg PO BID Hold Instructions: Resume on 07/31/23. hold unitl you see dr whittington amlodipine 10 mg tablet 5 mg PO DAILY folic acid 1 mg Tablet 1 mg PO BID 30 Days Qty: 60 0RF aspirin 81 mg capsule 81 mg PO DAILY 30 Days Qty: 30 0RF atorvastatin 40 mg tablet 40 mg PO DAILY 30 Days Qty: 30 0RF nitroglycerin 0.4 mg tablet, sublingual 0.4 mg sublingual Q5M PRN (Reason: chest pain) 30 Days Qty: 30 0RF Rx Instructions: do not exceed 3 doses per episode Discharge Orders: Discharge ED (Routine); Ordered 07/15/23 Ordered By: Kim Echeverria Referrals: Randee Klein PA [Primary Care Provider] - (You have been screened and evaluated and felt safe for discharge. Health conditions do change or evolve sometimes and as such it is important that you follow up with your Primary Doctor to be re checked, 3-5 days is a general good time frame for follow up. 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
--- NOTE | 2023-07-15 17:52 | USR_ITS ---
PROCEDURE INFORMATION: Exam: US Duplex Left Lower Extremity Veins, Limited Exam date and time: 07/15/2023 6:25 PM Age: 58 years old Clinical indication: Pain; Leg, lower; Prior surgery; Surgery date: <1 month; Surgery type: Left hip replacement; Additional info: Left-sided calf pain and swelling concern for dvt TECHNIQUE: Imaging protocol: Real-time duplex ultrasound of the left extremity with 2-D vora scale, color Doppler flow and spectral waveform analysis including responses to compression and other maneuvers (when performed) with image documentation. Limited exam focused on the left lower extremity veins. COMPARISON: CT abdomen pelvis w con* [id number] 01/24/2022 2:21 PM FINDINGS: Left deep veins: Unremarkable. The common femoral, femoral, proximal profunda femoral, popliteal, posterior tibial and peroneal veins are patent without thrombus. Normal compressibility, augmentation response and Doppler waveforms. Superficial veins: Greater saphenous vein at the saphenofemoral junction is patent without thrombus. Soft tissues: Unremarkable. US/CV venous duplex [facility] [id number] IMPRESSION: No sonographic evidence of deep vein thrombosis.
[2023-07-15 18:54] LABS: Basophils # 0.1 10^3/uL (0.0-0.1); Basophils % 0.9 %; Eosinophils # 0.4 10^3/uL (0.0-0.8); Eosinophils % 5.7 %; Hematocrit 32.3 % (36-47); Lymphocytes # 1.8 10^3/uL (0.8-4.8); Mean Corpuscular HGB Conc 31.3 g/dL (30-55); Mean Corpuscular Hemoglobin 35.4 pg (27-33); Mean Corpuscular Volume 113.3 fl (85-98); Mean Platelet Volume 10.8 fL (7.4-10.4); Monocytes # 0.9 10^3/uL (0.2-0.9); Monocytes % 13.5 %; Neutrophils # 3.61 10^3/uL (1.8-7.7); Neutrophils % 53.8 %; Nucleated Red Blood Cells % 0 %; Platelet Count 198 10^3/cmm (157-399); Red Blood Count 2.85 10^6/uL (3.85-5.65); Red Cell Distribution Width 13.7 % (12.1-15.1); White Blood Count 6.72 10^3/uL (3.29-11.43)
[2023-07-15 19:11] LABS: Erythrocyte Sedimentation Rate 22 mm/hr (0-15)
[2023-07-15 19:18] LABS: Alanine Aminotransferase 7 U/L (0-33); Albumin Level 3.6 g/dL (3.5-5.2); Alkaline Phosphatase 135 U/L (35-105); Anion Gap 15.3 (5-19); Aspartate Amino Transferase 14 U/L (0-32); Blood Urea Nitrogen 18 mg/dL (6-20); C Reactive Protein 65.6 mg/L (0.0-4.9); Calcium 9.3 mg/dL (8.5-10.5); Carbon Dioxide 25 mmol/L (22-29); Chloride 106 mmol/L (98-107); Globulin 3.3 g/dL (1.3-4.6); Glomerular Filtration Rate 102.3 mL/min (90-130); Glucose 107 mg/dL (65-115); Osmolality Calculated 296 mOsm/kg (285-295); Potassium 4.3 mmol/L (3.5-5.1); Sodium 142 mmol/L (136-145); Total Bilirubin 0.5 mg/dL (0.15-1.2); Total Protein 6.9 g/dL (6.6-8.7)
[2023-07-15 19:37] VITALS: BP 129/89; PULSE 101; RESP 16; O2SAT 94
[2023-07-15] MEDS: cefepime 2,000 MG in sodium chloride 0.9% (plus) 50 ML 100 MG IV (20:01)
[2023-07-15] MEDS: HYDROmorphone 1 mg/mL INJ 1 mL IVP (20:24)
[2023-07-15 20:36] VITALS: BP 129/89; PULSE 101; RESP 16; TEMP 36.7; O2SAT 94
== END 2023-07-15 20:36 | disposition home or self-care (01) ==
PROVIDERS: Emergency Provider Emergency Medicine; PCP Physician Assistant
DX: L03.116 Cellulitis of left lower limb (principal); I10 Essential (primary) hypertension; Z79.82 Long term (current) use of aspirin
CPT/HCPCS: 36415; 80053; 85025; 85651; 86140; 93971; 96374; 96375; 99284; J0692; J1171

== ENCOUNTER 2023-08-03 14:08 | Emergency (ER) | payer MEDICARE, SELFPAY ==
[2023-08-03] VITALS (14 sets, daily range): BP systolic 139–155; BP diastolic 76–108; PULSE 113–114; RESP 17–18; TEMP 36.6; O2SAT 95–100; BMI 25.8
--- NOTE | 2023-08-03 14:15 | ECG_ITS ---
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 Measurements Intervals [place] Rate: 112 P: 77 MS: 148 QRS: 63 QRSD: 82 T: 53 QT: 294 QTc: 403 Interpretive Statements SINUS TACHYCARDIA Compared to ECG 06/24/2023 02:40:30 Sinus rhythm no longer present Incomplete right bundle-branch block no longer present Electronically Signed On 08-03-2023 14:48:09 CDT by Ramana Gonzalez M.D. [id number] f
--- NOTE | 2023-08-03 14:15 | XR_ITS ---
WS: [id number] Portable AP upright chest, 08/03/2023 Clinical Data: sob Comparison: Portable chest, 06/24/2023 Findings: No nodules, masses or effusions are seen. The heart is normal. The pulmonary vascularity is not increased. No pneumonia or pneumothorax is seen. XR/XR chest 1V portable [id number] Impression: Negative chest.
--- NOTE | 2023-08-03 14:48 | CTR_ITS ---
PROCEDURE INFORMATION: Exam: CT Head Without Contrast Exam date and time: 08/03/2023 3:27 PM Age: 58 years old Clinical indication: Pain; Headache not specified; Patient HX: Sdh 06/23/2023 from a fall; Additional info: CURTIS TECHNIQUE: Imaging protocol: Computed tomography of the head without contrast. Radiation optimization: All CT scans at this facility use at least one of these dose optimization techniques: automated exposure control; mA and/or kV adjustment per patient size (includes targeted exams where dose is matched to clinical indication); or iterative reconstruction. COMPARISON: CT head wo con* [id number] 06/24/2023 3:05 AM RADIATION DOSE METRICS: Total DLP (mGy-cm): 1030.88 FINDINGS: Brain: No midline shift. Ventricles, cisterns, and sulci are normal. No mass, acute infarct, hemorrhage, or extraaxial fluid collection. Cerebral ventricles: No ventriculomegaly. Paranasal sinuses: Visualized sinuses are unremarkable. No fluid levels. Mastoid air cells: Visualized mastoid air cells are well aerated. Bones: Unremarkable. No acute fracture. Soft tissues: Unremarkable. CT/CT head wo con* [id number] IMPRESSION: No acute intracranial abnormality.
[2023-08-03 16:12] LABS: Basophils # 0.1 10^3/uL (0.0-0.1); Basophils % 0.7 %; Eosinophils # 0.1 10^3/uL (0.0-0.8); Eosinophils % 1.4 %; Hematocrit 44.2 % (36-47); Lymphocytes # 1.4 10^3/uL (0.8-4.8); Lymphocytes % 19.9 %; Mean Corpuscular HGB Conc 33.3 g/dL (30-55); Mean Corpuscular Volume 105.2 fl (85-98); Mean Platelet Volume 9.6 fL (7.4-10.4); Monocytes # 0.8 10^3/uL (0.2-0.9); Monocytes % 11.9 %; Nucleated Red Blood Cells % 0 %; Platelet Count 192 10^3/cmm (157-399); Red Cell Distribution Width 15.8 % (12.1-15.1); White Blood Count 6.98 10^3/uL (3.29-11.43)
[2023-08-03 16:29] LABS: Alanine Aminotransferase 11 U/L (0-33); Albumin Level 4.4 g/dL (3.5-5.2); Alkaline Phosphatase 236 U/L (35-105); Anion Gap 26.6 (5-19); Aspartate Amino Transferase 33 U/L (0-32); Blood Urea Nitrogen 10 mg/dL (6-20); Calcium 9.8 mg/dL (8.5-10.5); Carbon Dioxide 24 mmol/L (22-29); Chloride 86 mmol/L (98-107); Creatinine Clr Calc Pharmacy 88.2619; Globulin 3.9 g/dL (1.3-4.6); Glomerular Filtration Rate 85.6 mL/min (90-130); Glucose 86 mg/dL (65-115); Lipase 42 U/L (13-60); Osmolality Calculated 272 mOsm/kg (285-295); Potassium 4.6 mmol/L (3.5-5.1); Sodium 132 mmol/L (136-145); Total Bilirubin 0.9 mg/dL (0.15-1.2); Total Protein 8.3 g/dL (6.6-8.7)
[2023-08-03 16:37] LABS: Ketone (Acetest) Serum Negative (Negative)
--- NOTE | 2023-08-03 16:45 | ED_ITS ---
HPI - General Adult 2 General: Chief complaint: General Medical Stated complaint: sent by Haroldo Rivera, headache, sob Time Seen by Provider: 08/03/23 15:41 Source: patient and family Mode of arrival: ambulatory Limitations: no limitations History of Present Illness: Patient comes in with a plethora of chronic complaints been going on for sounds like a year prior description. Parameters of tunnel vision, eating well. The worst when I made her Diandra was the fact that she is having issues keeping things down. She reports she has not had any food since Sunday at all 0 bites because she throws it up. She is concerned she becoming malnourished and she wants to be admitted for IV fluids. In fact she even asked about admission prior to even examining her. 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 Positive ANDREW (antinuclear antibody) Inflammatory arthritis Gout Hypertension Surgical History History of foot surgery (2016) Plantar fasciitis History of surgical removal of pilonidal cyst (1999) History of carpal tunnel release (1999) History of bunionectomy of left great toe (2018) History of bunionectomy of right great toe (01/24/23) History of esophagogastroduodenoscopy (EGD) (03/29/23) [facility] 8 years History of ventral hernia repair (05/08/22) Social History Smoking and tobacco/nicotine status: never used tobacco/nicotine Alcohol intake: current Physical Exam 2 Const: COMMON NORMALS: no acute distress, average body habitus, patient oriented x3, healthy appearing, alert and well nourished GENERAL APPEARANCE: well kempt and well developed HENMT: COMMON NORMALS: normocephalic, atraumatic, external ears normal and moist oral mucous membranes HEAD & SCALP: normocephalic and atraumatic E XTERNAL EAR: Yes external ears normal Eye: COMMON NORMALS: Equal, round and reactive pupils present, EOMs intact bilaterally and conjunctivae normal CONJUNCTIVA: Yes conjunctivae normal P UPIL: Yes Equal, round and reactive pupils present Neck/C-Spine: COMMON NORMALS: full ROM, no lymphadenopathy and supple Chest: CHEST: Yes Symmetrical chest wall rise and No Surgical scars present (Chest) Resp: COMMON NORMALS: normal respiratory effort, No retractions, No use of accessory muscles and clear to auscultation bilaterally AUSCULTATION: clear to auscultation bilaterally Cardio: COMMON NORMALS: regular rate, regular rhythm, S1 normal heart sound present, S2 normal heart sound present, No gallops present (Cardio), No clicks present (Cardio), No murmurs present (Cardio) and No rub (Cardio) RATE: r egular rate RHYTHM: regular rhythm HEART SOUNDS: S1 normal heart sound present, S2 normal heart sound present and no murmurs PERIPHERAL PULSES: o ther (Radial pulses 2+ and symmetric) GI: COMMON NORMALS: Soft to palpation and no masses INSPECTION: No abdominal distension PALPATION: Yes Soft to palpation, Yes Tenderness to palpation present (GI) (Nonfocal diffuse tenderness no guarding or rebound tenderness), No Guarding due to palpation present (GI) and No Rebound tenderness present : COMMON NORMALS: Yes no CVA tenderness BLADDER/KIDNEY EXAM: Yes no CVA tenderness Back/Pelvis: COMMON NORMALS: no CVA tenderness Extremity: COMMON NORMALS: normal to inspection, full ROM, capillary refill normal and no clubbing, cyanosis or edema Neuro: COMMON NORMALS: patient oriented x3 SENSORIUM/ORIENTATION: Yes alert Psych: APPEARANCE: Yes well kempt Skin: COMMON NORMALS: no rashes or lesions noted, no wounds, turgor normal and no jaundice GENERAL SKIN EXAM: no rashes or lesions noted and turgor normal Course 2 ED course: Patient improved with fluids. Able to ambulate to restroom now. Multiple chronic symptoms will be discharged to follow-up with primary care. Will place on Zofran and Phenergan at home. Vital Signs: Vital signs: Vital Signs Temperature 97.9 F 08/03/23 14:12 Pulse Rate 114 H 08/03/23 14:12 Respiratory Rate 17 08/03/23 14:12 Blood Pressure 148/92 08/03/23 14:12 Pulse Oximetry 100 08/03/23 14:12 Oxygen Delivery Me thod Room Air 08/03/23 14:12 MDM - General Adult Medical Decision Making Given IV fluids, suggested neurology and primary care. They are to see patient is dealing with multiple chronic illnesses and changing facts of life and may need psychiatric referral as well. History of IBS but does not follow GI no longer taking IBS meds. Medical Records I reviewed the patient's medical records. Lab Data I reviewed the patient's lab results. 08/03/23 16:03 08/03/23 16:03 Radiology Impressions Chest X-Ray 08/03/23 14:15 Impression: Negative chest. Head CT 08/03/23 14:48 IMPRESSION: No acute intracranial abnormality. Laboratory Results WBC 6.98 10^3/uL (3.29-11.43) 08/03/23 16:03 RBC 4.20 10^6/uL (3.85-5.65) 08/03/23 16:03 Hgb 14.70 g/dL (11.27-16.99) 08/03/23 16:03 Hct 44.2 % (36-47) 08/03/23 16:03 MCV 105.2 fl (85-98) H 08/03/23 16:03 MCH 35.0 pg (27-33) H 08/03/23 16:03 MCHC 33.3 g/dL (30-55) 08/03/23 16:03 RDW 15.8 % (12.1-15.1) H 08/03/23 16:03 Plt Count 192 10^3/cmm (157-399) 08/03/23 16:03 MPV 9.6 fL (7.4-10.4) 08/03/23 16:03 Neut % (Auto) 66.0 % 08/03/23 16:03 Lymph % (Auto) 19.9 % 08/03/23 16:03 [place] % (Auto) 11.9 % 08/03/23 16:03 Eos % (Auto) 1.4 % 08/03/23 16:03 Baso % (Auto) 0.7 % 08/03/23 16:03 Neut # (Auto) 4.60 10^3/uL (1.8-7.7) 08/03/23 16:03 Lymph # (Auto) 1.4 10^3/uL (0.8-4.8) 08/03/23 16:03 [place] # (Auto) 0.8 10^3/uL (0.2-0.9) 08/03/23 16:03 Eos # (Auto) 0.1 10^3/uL (0.0-0.8) 08/03/23 16:03 Baso # (Auto) 0.1 10^3/uL (0.0-0.1) 08/03/23 16:03 Nucleated RBC % (auto) 0 % 08/03/23 16:03 Nucleated RBCs # 0.0 /100WBC 08/03/23 16:03 Sodium 132 mmol/L (136-145) L 08/03/23 16:03 Potassium 4.6 mmol/L (3.5-5.1) 08/03/23 16:03 Chloride 86 mmol/L (98-107) L 08/03/23 16:03 Carbon Dioxide 24 mmol/L (22-29) 08/03/23 16:03 Anion Gap 26.6 (5-19) H 08/03/23 16:03 BUN 10 mg/dL (6-20) 08/03/23 16:03 Creatinine 0.7 mg/dL (0.5-0.9) 08/03/23 16:03 GFR Calculation 85.6 mL/min (90-130) L 08/03/23 16:03 Glucose 86 mg/dL (65-115) 08/03/23 16:03 Calculated Osmolality 272 mOsm/kg (285-295) L 08/03/23 16:03 Calcium 9.8 mg/dL (8.5-10.5) 08/03/23 16:03 Total Bilirubin 0.9 mg/dL (0.15-1.2) 08/03/23 16:03 AST 33 U/L (0-32) H 08/03/23 16:03 ALT 11 U/L (0-33) 08/03/23 16:03 Alkaline Phosphatase 236 U/L (35-105) H 08/03/23 16:03 Total Protein 8.3 g/dL (6.6-8.7) 08/03/23 16:03 Albumin 4.4 g/dL (3.5-5.2) 08/03/23 16:03 Globulin 3.9 g/dL (1.3-4.6) 08/03/23 16:03 Lipase 42 U/L (13-60) 08/03/23 16:03 Serum Ketones Negative (Negative) 08/03/23 16:03 No radiology studies performed this visit Discharge Plan Discharge Patient Disposition: Home Clinical Impression: Dehydration, mild, Nausea & vomiting Condition: Stable Prescriptions: New ondansetron 8 mg tablet,disintegrating 8 mg PO Q8H PRN (Reason: nausea and vomiting) 15 Days Qty: 30 0RF promethazine 25 mg tablet 25 mg PO Q6H PRN (Reason: N/V) Qty: 30 0RF Rx Instructions: Take 1 to 2 tablets every 6 hours as needed for nausea vomiting No Action prednisone 5 mg tablet 5 mg PO DAILY Qty: 90 1RF levothyroxine 25 mcg tablet See Rx Instructions .ROUTE .COMPLEX Qty: 30 0RF Dose Instruction: TAKE 1 TABLET BY MOUTH DAILY SUNDAY THRU SUNDAY, THEN 2 TABLETS BY MOUTH ON SUNDAY Rx Instructions: TAKE 1 TABLET BY MOUTH DAILY SUNDAY THRU SUNDAY, THEN 2 TABLETS BY MOUTH ON SUNDAY amlodipine 10 mg tablet 5 mg PO DAILY mupirocin 2 % ointment 1 applic TOPICAL PRN PRN (Reason: Skin Irritation) albuterol sulfate 90 mcg/actuation HFA aerosol inhaler 2 puff INHALATION QID PRN (Reason: BRONCHIAL COUGH) Discharge Orders: Discharge ED (Routine); Ordered 08/03/23 Ordered By: Bryce Beach Referrals: Randee Klein PA [Primary Care Provider] - Discharge Diet: Advance as tolerated and Full LIquid Discharge Activity: Resume usual activity Patient Instructions: Acute Nausea and Vomiting (ED) Coding Level of Care Code ED S[employer] Sql Developer for Jania Criag
[2023-08-03 16:54] LABS: Thyroid Stimulating Hormone 5.81 uIU/mL (0.27-4.20)
[2023-08-03 17:18] LABS: Add Urine Microscopic? NO; Charge for UA Resulting for Rev
[2023-08-03 17:24] LABS: Alcohol Level < 10 mg/dL (0-10)
[2023-08-03 17:27] LABS: Bilirubin Urine 1+ (Negative); Blood Urine Neg (Negative); Glucose Urine UA Norm (Normal); Ketones Urine 1+ (Negative); Leukocyte Esterase Urine Negative (Negative); Nitrate Urine Negative (Negative); Protein Urine Neg (Negative); Urine Appearance Clear (CLEAR); Urine Color Yellow (Yellow); Urobilinogen Urine Neg (Negative); pH Urine 5 (5-7)
[2023-08-03] MEDS: sodium chloride 0.9% 1,000 ML 999 ML IV (17:30)
[2023-08-03 17:31] LABS: Vitamin B12 382 pg/mL (232-1245)
[2023-08-03 17:36] LABS: Amphetamines Screen Urine Negative (Negative); Barbiturates Screen Urine Negative (Negative); Benzodiazepines Screen Urine Negative (Negative); Cocaine Screen Urine Negative (Negative); Opiate Screen Urine Negative (Negative); PCP Screen Urine Negative (Negative); THC Screen Urine Positive (Negative)
[2023-08-03] MEDS: ondansetron 2 mg/ML SDV 2 mL 4 MG IVP (20:35)
--- NOTE | 2023-08-03 21:54 | ED_ITS ---
HPI - General Adult 2 General: Chief complaint: General Medical Stated complaint: sent by Haroldo Rivera, headache, sob Time Seen by Provider: 08/03/23 15:41 Source: patient and family Mode of arrival: ambulatory Limitations: no limitations History of Present Illness: Plethora of complaints given mostly chronic. Tunnel vision, headaches, orthostatic hypotension all these are chronic and going on for greater than 1 year year. Patient reports that today she finally coming in as she reports she has not had anything to eat or drink without throwing it up since Sunday. She did tolerate a half a can of beans on Sunday and that is it. Reports absolutely 0 intake over this time. Patient request admission before I can even examine her. Reviewing outside notes patient has more providers and multiple chronic complaints that are mentioned acutely and can often have very histrionic presentations. 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 Positive ANDREW (antinuclear antibody) Inflammatory arthritis Gout Hypertension Surgical History History of foot surgery (2015) Plantar fasciitis History of surgical removal of pilonidal cyst (1999) History of carpal tunnel release (1999) History of bunionectomy of left great toe (2018) History of bunionectomy of right great toe (01/24/23) History of esophagogastroduodenoscopy (EGD) (03/29/23) [facility] 8 years History of ventral hernia repair (05/08/22) Social History Smoking and tobacco/nicotine status: never used tobacco/nicotine Alcohol intake: current Physical Exam 2 Const: COMMON NORMALS: no acute distress, average body habitus, patient oriented x3, healthy appearing, alert and well nourished GENERAL APPEARANCE: well kempt, well developed and anxious OTHER: Exuberantly expresses pain to several things such as IV tourniquet being placed for IV placement, and especially during actual IV placement. HENMT: COMMON NORMALS: normocephalic, atraumatic, external ears normal and moist oral mucous membranes HEAD & SCALP: normocephalic and atraumatic E XTERNAL EAR: Yes external ears normal Eye: COMMON NORMALS: Equal, round and reactive pupils present, EOMs intact bilaterally and conjunctivae normal CONJUNCTIVA: Yes conjunctivae normal P UPIL: Yes Equal, round and reactive pupils present Neck/C-Spine: COMMON NORMALS: full ROM, no lymphadenopathy and supple Chest: CHEST: Yes Symmetrical chest wall rise and No Surgical scars present (Chest) Resp: COMMON NORMALS: normal respiratory effort, No retractions, No use of accessory muscles and clear to auscultation bilaterally AUSCULTATION: clear to auscultation bilaterally Cardio: COMMON NORMALS: regular rhythm, S1 normal heart sound present, S2 normal heart sound present, No gallops present (Cardio), No clicks present (Cardio), No murmurs present (Cardio) and No rub (Cardio) RATE: tachycardic RHYTHM: regular rhythm HEART SOUNDS: S1 normal heart sound present, S2 normal heart sound present and no murmurs PERIPHERAL PULSES: other (Radial pulses 2+ and symmetric) GI: COMMON NORMALS: Soft to palpation, non-tender and no masses INSPECTION: No abdominal distension PALPATION: Yes Soft to palpation, No Guarding due to palpation present (GI) and No Rebound tenderness present : COMMON NORMALS: Yes no CVA tenderness BLADDER/KIDNEY EXAM: Yes no CVA tenderness Back/Pelvis: COMMON NORMALS: no CVA tenderness Extremity: COMMON NORMALS: normal to inspection, full ROM, capillary refill normal and no clubbing, cyanosis or edema Neuro: COMMON NORMALS: patient oriented x3 SENSORIUM/ORIENTATION: Yes alert Psych: APPEARANCE: Yes well kempt Skin: COMMON NORMALS: no rashes or lesions noted, no wounds, turgor normal and no jaundice GENERAL SKIN EXAM: no rashes or lesions noted and turgor normal Course 2 Vital Signs: Vital signs: Vital Signs Temperature 97.9 F 08/03/23 14:12 Pulse Rate 113 H 08/03/23 20:43 Respiratory Rate 18 08/03/23 20:43 Blood Pressure 139/76 08/03/23 20:43 Pulse Oximetry 98 08/03/23 20:43 Oxygen Delivery Me thod Room Air 08/03/23 14:12 [facility] - General Adult Medical Decision Making Patient here for chronic medical issues being seen by multiple specialist. Patient reported she had not been eating anything or drink anything. However albumin is 4.4, had a mild hyponatremia 132 hypochloremia but good protein counts, no GERMAINE. Patient is clearly keeping down more than she is saying that she is keeping down. Glucose is normal. Patient has not had a trial of Zofran for again despite greater than 1 year of nausea vomiting and just in the last month unable to keep down any food or fluids for the most part worse over the past week. Thankfully patient is stable and will be discharged home with Zofran and Phenergan for trial for antiemetics and advised to follow-up with primary care Medical Records I reviewed the patient's medical records. Lab Data I reviewed the patient's lab results. 08/03/23 16:03 08/03/23 16:03 Radiology Impressions Chest X-Ray 08/03/23 14:15 Impression: Negative chest. Head CT 08/03/23 14:48 IMPRESSION: No acute intracranial abnormality. Laboratory Results WBC 6.98 10^3/uL (3.29-11.43) 08/03/23 16:03 RBC 4.20 10^6/uL (3.85-5.65) 08/03/23 16:03 Hgb 14.70 g/dL (11.27-16.99) 08/03/23 16:03 Hct 44.2 % (36-47) 08/03/23 16:03 MCV 105.2 fl (85-98) H 08/03/23 16:03 MCH 35.0 pg (27-33) H 08/03/23 16:03 MCHC 33.3 g/dL (30-55) 08/03/23 16:03 RDW 15.8 % (12.1-15.1) H 08/03/23 16:03 Plt Count 192 10^3/cmm (157-399) 08/03/23 16:03 MPV 9.6 fL (7.4-10.4) 08/03/23 16:03 Neut % (Auto) 66.0 % 08/03/23 16:03 Lymph % (Auto) 19.9 % 08/03/23 16:03 [place] % (Auto) 11.9 % 08/03/23 16:03 Eos % (Auto) 1.4 % 08/03/23 16:03 Baso % (Auto) 0.7 % 08/03/23 16:03 Neut # (Auto) 4.60 10^3/uL (1.8-7.7) 08/03/23 16:03 Lymph # (Auto) 1.4 10^3/uL (0.8-4.8) 08/03/23 16:03 [place] # (Auto) 0.8 10^3/uL (0.2-0.9) 08/03/23 16:03 Eos # (Auto) 0.1 10^3/uL (0.0-0.8) 08/03/23 16:03 Baso # (Auto) 0.1 10^3/uL (0.0-0.1) 08/03/23 16:03 Nucleated RBC % (auto) 0 % 08/03/23 16:03 Nucleated RBCs # 0.0 /100WBC 08/03/23 16:03 Sodium 132 mmol/L (136-145) L 08/03/23 16:03 Potassium 4.6 mmol/L (3.5-5.1) 08/03/23 16:03 Chloride 86 mmol/L (98-107) L 08/03/23 16:03 Carbon Dioxide 24 mmol/L (22-29) 08/03/23 16:03 Anion Gap 26.6 (5-19) H 08/03/23 16:03 BUN 10 mg/dL (6-20) 08/03/23 16:03 Creatinine 0.7 mg/dL (0.5-0.9) 08/03/23 16:03 GFR Calculation 85.6 mL/min (90-130) L 08/03/23 16:03 Glucose 86 mg/dL (65-115) 08/03/23 16:03 Calculated Osmolality 272 mOsm/kg (285-295) L 08/03/23 16:03 Calcium 9.8 mg/dL (8.5-10.5) 08/03/23 16:03 Total Bilirubin 0.9 mg/dL (0.15-1.2) 08/03/23 16:03 AST 33 U/L (0-32) H 08/03/23 16:03 ALT 11 U/L (0-33) 08/03/23 16:03 Alkaline Phosphatase 236 U/L (35-105) H 08/03/23 16:03 Total Protein 8.3 g/dL (6.6-8.7) 08/03/23 16:03 Albumin 4.4 g/dL (3.5-5.2) 08/03/23 16:03 Globulin 3.9 g/dL (1.3-4.6) 08/03/23 16:03 Lipase 42 U/L (13-60) 08/03/23 16:03 Vitamin B12 382 pg/mL (232-1245) 08/03/23 16:03 TSH 5.81 uIU/mL (0.27-4.20) H 08/03/23 16:03 Urine Color Yellow (Yellow) 08/03/23 17:05 Urine Appearance Clear (CLEAR) 08/03/23 17:05 Urine pH 5 (5-7) 08/03/23 17:05 Ur Specific [place] 1.020 (1.005-1.030) 08/03/23 17:05 Urine Protein Neg (Negative) 08/03/23 17:05 Urine Glucose (UA) Norm (Normal) 08/03/23 17:05 Urine Ketones 1+ (Negative) H 08/03/23 17:05 Urine Blood Neg (Negative) 08/03/23 17:05 Urine Nitrate Negative (Negative) 08/03/23 17:05 Urine Bilirubin 1+ (Negative) H 08/03/23 17:05 Urine Urobilinogen Neg mg/dL (Negative) 08/03/23 17:05 Ur Leukocyte Esterase Negative (Negative) 08/03/23 17:05 Urine Opiates Screen Negative ng/mL (Negative) 08/03/23 17:05 Ur Barbiturates Screen Negative ng/mL (Negative) 08/03/23 17:05 Ur Phencyclidine Scrn Negative ng/mL (Negative) 08/03/23 17:05 Ur Amphetamines Screen Negative ng/mL (Negative) 08/03/23 17:05 U Benzodiazepines Scrn Negative ng/mL (Negative) 08/03/23 17:05 Urine Cocaine Screen Negative ng/mL (Negative) 08/03/23 17:05 U Marijuana (THC) Screen Positive ng/mL (Negative) H 08/03/23 17:05 Ethyl Alcohol < 10 mg/dL (0-10) 08/03/23 16:03 Serum Ketones Negative (Negative) 08/03/23 16:03 All radiology interpretation(s) finalized by discharge ED provider radiology interpretation(s): See MDM narrative Discharge Plan Discharge Patient Disposition: Home Clinical Impression: Dehydration, mild, Nausea & vomiting Condition: Stable Prescriptions: New ondansetron 8 mg tablet,disintegrating 8 mg PO Q8H PRN (Reason: nausea and vomiting) 15 Days Qty: 30 0RF promethazine 25 mg tablet 25 mg PO Q6H PRN (Reason: N/V) Qty: 30 0RF Rx Instructions: Take 1 to 2 tablets every 6 hours as needed for nausea vomiting No Action prednisone 5 mg tablet 5 mg PO DAILY Qty: 90 1RF levothyroxine 25 mcg tablet See Rx Instructions .ROUTE .COMPLEX Qty: 30 0RF Dose Instruction: TAKE 1 TABLET BY MOUTH DAILY SUNDAY THRU SUNDAY, THEN 2 TABLETS BY MOUTH ON SUNDAY Rx Instructions: TAKE 1 TABLET BY MOUTH DAILY SUNDAY THRU SUNDAY, THEN 2 TABLETS BY MOUTH ON SUNDAY amlodipine 10 mg tablet 5 mg PO DAILY mupirocin 2 % ointment 1 applic TOPICAL PRN PRN (Reason: Skin Irritation) albuterol sulfate 90 mcg/actuation HFA aerosol inhaler 2 puff INHALATION QID PRN (Reason: BRONCHIAL COUGH) Discharge Orders: Discharge ED (Routine); Ordered 08/03/23 Ordered By: Bryce Beach Referrals: Randee Klein PA [Primary Care Provider] - Discharge Diet: Advance as tolerated and Full LIquid Discharge Activity: Resume usual activity Patient Instructions: Acute Nausea and Vomiting (ED) Coding Level of Care Code ED Grass Farmer for Jania Craig
== END 2023-08-03 20:43 | disposition home or self-care (01) ==
PROVIDERS: Emergency Medicine; Emergency Provider Emergency Medicine; PCP Physician Assistant
DX: E86.0 Dehydration (principal); R11.2 Nausea with vomiting, unspecified; I10 Essential (primary) hypertension
CPT/HCPCS: 70450; 71045; 80053; 80306; 80307; 81003; 82009; 82607; 83690; 84443; 85025; 93005; 96361; 96374; 99285; J2405; J7030

== ENCOUNTER → 2023-08-23 12:21 | Outpatient (BNVA) | payer MEDICARE, SELFPAY | PROVIDERS: PCP Physician Assistant; Visit Provider Specialist | DX: G63 Polyneuropathy in diseases classified elsewhere (principal); G62.89 Other specified polyneuropathies | CPT/HCPCS: 95909; 95910 ==

== ENCOUNTER → 2023-08-27 12:33 | Outpatient (BNVA) | payer MEDICARE, SELFPAY | PROVIDERS: PCP Physician Assistant; Visit Provider Internal Medicine Rheumatology | DX: R76.8 Other specified abnormal immunological findings in serum (principal); Z79.899 Other long term (current) drug therapy; Z71.85 Encounter for immunization safety counseling; M06.041 Rheumatoid arthritis without rheumatoid factor, right hand; M06.042 Rheumatoid arthritis without rheumatoid factor, left hand | CPT/HCPCS: 99214 ==

== ENCOUNTER 2023-09-20 09:01 | Oncology outpatient (recurring) (ONCR) | payer MEDICARE, SELFPAY ==
[2023-09-11 15:53] LABS: Basophils % 0.2 %; Hematocrit 39.8 % (36-47); Lymphocytes # 0.9 10^3/uL (0.8-4.8); Lymphocytes % 15.6 %; Mean Corpuscular HGB Conc 34.4 g/dL (30-55); Mean Corpuscular Hemoglobin 34.8 pg (27-33); Monocytes # 0.5 10^3/uL (0.2-0.9); Monocytes % 9.8 %; Neutrophils # 4.08 10^3/uL (1.8-7.7); Nucleated Red Blood Cells % 0 %; Platelet Count 181 10^3/cmm (157-399); Red Blood Count 3.94 10^6/uL (3.85-5.65); Red Cell Distribution Width 16.6 % (12.1-15.1); White Blood Count 5.51 10^3/uL (3.29-11.43)
[2023-09-11 15:56] LABS: Erythrocyte Sedimentation Rate 14 mm/hr (0-15)
[2023-09-11 16:13] LABS: Alanine Aminotransferase 6 U/L (0-33); Albumin Level 3.7 g/dL (3.5-5.2); Alkaline Phosphatase 141 U/L (35-105); Blood Urea Nitrogen 18 mg/dL (6-20); C Reactive Protein 33.6 mg/L (0.0-4.9); Calcium 8.4 mg/dL (8.5-10.5); Carbon Dioxide 26 mmol/L (22-29); Chloride 79 mmol/L (98-107); Globulin 2.9 g/dL (1.3-4.6); Glomerular Filtration Rate 85.6 mL/min (90-130); Glucose 120 mg/dL (65-115); Immunoglobulin IGA 156 mg/dL (70-400); Immunoglobulin IGG 548 mg/dL (700-1600); Immunoglobulin IGM 60 mg/dL (40-230); Osmolality Calculated 267 mOsm/kg (285-295); Sodium 127 mmol/L (136-145); Total Bilirubin 0.6 mg/dL (0.15-1.2); Total Protein 6.6 g/dL (6.6-8.7)
[2023-09-11 16:39] LABS: Anion Gap 25.3 (5-19); Aspartate Amino Transferase 24 U/L (0-32); Potassium 3.3 mmol/L (3.5-5.1)
[2023-09-12 14:49] LABS: KAPPA LIGHT CHAIN, FREE, SERUM 16.5 mg/L (3.3-19.4); KAPPA/LAMBDA LIGHT CHAINS FREE 1.23 (0.26-1.65); LAMBDA LIGHT CHAIN, FREE, SERU 13.4 mg/L (5.7-26.3)
[2023-09-12 15:33] LABS: PROTEIN, TOTAL 6.1 g/dL (6.1-8.1)
[2023-09-13 12:39] LABS: ALBUMIN 3.8 g/dL (3.8-4.8); ALPHA 1 GLOBULIN 0.4 g/dL (0.2-0.3); ALPHA 2 GLOBULIN 0.8 g/dL (0.5-0.9); BETA 1 GLOBULIN 0.4 g/dL (0.4-0.6); BETA 2 GLOBULIN 0.3 g/dL (0.2-0.5); GAMMA GLOBULIN 0.4 g/dL (0.8-1.7)
[2023-09-17 20:14] LABS: Immunofixation Serum Normal pattern.
[2023-09-20 10:06] LABS: Urine Total Protein 6.5 mg/dL (0-150)
[2023-09-20 10:13] LABS: Total Volume, Urine 1900 mL; Urine Total Protein 24 Hour 123.5 mg/24hr (0-150)
[2023-09-21 16:38] LABS: PROTEIN, TOTAL, 24 HR UR 76 mg/24 h (<150); Protein/Creatinine Ratio 0.095 (<0.150); Protein/Creatinine Ratio 95 mg/g creat (<150)
[2023-09-22 15:49] LABS: Kappa Free Light Chains Urine 53.77 mg/L (<=32.90); Lambda Light Chain, Free Ur 7.82 mg/L (<=3.79)
[2023-09-25 12:45] LABS: ALBUMIN 100 %; ALPHA-1-GLOBULINS 0 %; ALPHA-2-GLOBULINS 0 %; BETA GLOBULINS 0 %; GAMMA GLOBULINS 0 %
== END 2023-09-23 23:59 | disposition home or self-care (01) ==
PROVIDERS: Internal Medicine Medical Oncology; PCP Physician Assistant; Visit Provider Physician Assistant
DX: Z53.9 Procedure and treatment not carried out, unspecified reason (principal)
CPT/HCPCS: 36415; 80053; 82784; 83521; 83883; 84155; 84156; 84165; 84166; 85025; 85651; 86140; 86334; 86335; 99214

== ENCOUNTER 2023-10-05 08:37 | Emergency (ER) | payer MEDICARE, SELFPAY ==
[2023-10-05] VITALS (13 sets, daily range): BP systolic 133–169; BP diastolic 90–105; PULSE 87–97; RESP 12–20; TEMP 36.6; O2SAT 94–100; BMI 25.8
--- NOTE | 2023-10-05 08:44 | XRR_ITS ---
PROCEDURE INFORMATION: Exam: XR Chest Exam date and time: 10/05/2023 9:12 AM Age: 58 years old Clinical indication: Cough and dyspnea; Additional info: Dyspnea/cough TECHNIQUE: Imaging protocol: Radiologic exam of the chest. Views: 1 view. COMPARISON: CR XR chest 1V portable [id number] 08/03/2023 2:36 PM FINDINGS: Lungs: No pulmonary consolidation. Pleural spaces: No pleural effusion. No pneumothorax. Heart/Mediastinum: The cardiac silhouette is unchanged. No gross evidence of pneumomediastinum. Bones/joints: No gross fracture. XR/XR chest 1V portable [id number] IMPRESSION: No acute cardiopulmonary abnormality identified.
[2023-10-05 09:12] LABS: Basophils % 0.4 %; Eosinophils % 0.2 %; Hematocrit 38.8 % (36-47); Lymphocytes # 1.1 10^3/uL (0.8-4.8); Lymphocytes % 21.8 %; Mean Corpuscular HGB Conc 33.8 g/dL (30-55); Mean Corpuscular Hemoglobin 33.9 pg (27-33); Mean Corpuscular Volume 100.3 fl (85-98); Mean Platelet Volume 9.4 fL (7.4-10.4); Monocytes # 0.7 10^3/uL (0.2-0.9); Neutrophils # 3.24 10^3/uL (1.8-7.7); Nucleated Red Blood Cells % 0 %; Platelet Count 206 10^3/cmm (157-399); Red Blood Count 3.87 10^6/uL (3.85-5.65); Red Cell Distribution Width 15.9 % (12.1-15.1); White Blood Count 5.14 10^3/uL (3.29-11.43)
--- NOTE | 2023-10-05 09:19 | USCV_ITS ---
Alysa Goodman Age: 58 Gender: F : 1965 Exam Date: 10/05/2023 09:30 Ordering Phys: Constantine Goncalves DO Technologist: CT Exam Location: [facility] [place]_ Indication: swelling PROCEDURES: Venous duplex imaging was performed in only the left lower extremity. FINDINGS: dvt from cfv-osito v nonoccluding thrombus in gsv, profunda occluded as well CONCLUSIONS DVT LLE extending from cfv, femoral, popliteal, and peroneal vein Non occlusive thrombus GSV Occlusive DVT in profunda Prelim to Dr Goncalves at time of exam Obey Levine MD (Electronically Signed) Final Date: 05 October 2023 09:59 S
--- NOTE | 2023-10-05 09:22 | W.ED.GENADLT ---
HPI - General Adult General: Chief complaint: Extremity Problem,Nontraumatic Stated complaint: dr amaral, leg swelling Time Seen by Provider: 10/05/23 08:44 Source: patient Mode of arrival: ambulatory History of Present Illness: 58-year-old female presents emergency room complaining of leg swelling. She has unilateral left calf and distal thigh swelling. Began over the last 3 days in the past she has had this taken Lasix for it with good relief of symptoms. She denies chest pain or shortness of breath she is not on any anticoagulants. 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 Positive ANDREW (antinuclear antibody) Inflammatory arthritis Gout Hypertension Surgical History History of left hip replacement History of foot surgery (2015) Plantar fasciitis History of surgical removal of pilonidal cyst (1999) History of carpal tunnel release (1999) History of bunionectomy of left great toe (2018) History of bunionectomy of right great toe (01/24/23) History of esophagogastroduodenoscopy (EGD) (03/29/23) [facility] 8 years History of ventral hernia repair (05/08/22) Social History Smoking and tobacco/nicotine status: never used tobacco/nicotine Alcohol intake: current Course Vital Signs: Vital signs: Vital Signs Temperature 98 F 10/05/23 08:44 Pulse Rate 95 10/05/23 11:20 Respiratory Rate 19 H 10/05/23 11:20 Blood Pressure 148/92 10/05/23 11:30 Pulse Oximetry 98 10/05/23 11:20 Oxygen Delivery Me thod Room Air 10/05/23 11:15 [facility] - General Adult Medical Decision Making Significant swelling and left leg venous duplex shows extensive DVT. Patient did mention she was short of breath and some mild chest comfort at times. CTA shows small bilateral pulmonary emboli without signs of heart strain. In June when she broke her hip she did have a subdural hematoma CT of the head was repeated to ensure there is no signs of recurrence she still states she feels unsteady on her feet but thinks it is due to the hip arthroplasty. CT of the head did not show any significant abnormality. Discussed with inpatient pharmacy they recommend Arixtra since the patient is not able to take Lovenox or heparin because of her alpha gal. They also felt that Eliquis would be safe as long as it is in a pill form not a gelcap form. Reviewed findings with the patient. She should continue her Eliquis until specifically advised to stop by her physician recommend she follow-up with her primary care doctor for refills. Return if she has worsening symptoms. Medical Records I reviewed the patient's medical records. Lab Data I reviewed the patient's lab results. 10/05/23 09:03 10/05/23 09:03 Radiology Impressions Chest X-Ray 10/05/23 08:44 IMPRESSION: No acute cardiopulmonary abnormality identified. Chest CTA 10/05/23 10:07 IMPRESSION: Bilateral pulmonary emboli. Small/moderate thrombus burden. ADDENDUM: 10/05/23 1057 THIS REPORT CONTAINS FINDINGS THAT MAY BE CRITICAL TO PATIENT CARE. The findings were verbally communicated via telephone conference with CONSTANTINE GONCALVES at 10:55 AM CDT on 10/05/2023. The findings were acknowledged and understood. Head CT 10/05/23 10:08 IMPRESSION: 1. No acute intracranial hemorrhage. 2. Lacunar infarcts within/adjacent to the basal ganglia, bilaterally, are unchanged. Laboratory Results WBC 5.14 10^3/uL (3.29-11.43) 10/05/23 09:03 RBC 3.87 10^6/uL (3.85-5.65) 10/05/23 09:03 Hgb 13.10 g/dL (11.27-16.99) 10/05/23 09:03 Hct 38.8 % (36-47) 10/05/23 09:03 MCV 100.3 fl (85-98) H 10/05/23 09:03 MCH 33.9 pg (27-33) H 10/05/23 09:03 MCHC 33.8 g/dL (30-55) 10/05/23 09:03 RDW 15.9 % (12.1-15.1) H 10/05/23 09:03 Plt Count 206 10^3/cmm (157-399) 10/05/23 09:03 MPV 9.4 fL (7.4-10.4) 10/05/23 09:03 Neut % (Auto) 63.0 % 10/05/23 09:03 Lymph % (Auto) 21.8 % 10/05/23 09:03 [place] % (Auto) 14.0 % 10/05/23 09:03 Eos % (Auto) 0.2 % 10/05/23 09:03 Baso % (Auto) 0.4 % 10/05/23 09:03 Neut # (Auto) 3.24 10^3/uL (1.8-7.7) 10/05/23 09:03 Lymph # (Auto) 1.1 10^3/uL (0.8-4.8) 10/05/23 09:03 [place] # (Auto) 0.7 10^3/uL (0.2-0.9) 10/05/23 09:03 Eos # (Auto) 0.0 10^3/uL (0.0-0.8) 10/05/23 09:03 Baso # (Auto) 0.0 10^3/uL (0.0-0.1) 10/05/23 09:03 Nucleated RBC % (auto) 0 % 10/05/23 09:03 Nucleated RBCs # 0.0 /100WBC 10/05/23 09:03 Sodium 132 mmol/L (136-145) L 10/05/23 09:03 Potassium 3.2 mmol/L (3.5-5.1) L 10/05/23 09:03 Chloride 87 mmol/L (98-107) L 10/05/23 09:03 Carbon Dioxide 28 mmol/L (22-29) 10/05/23 09:03 Anion Gap 20.2 (5-19) H 10/05/23 09:03 BUN 16 mg/dL (6-20) 10/05/23 09:03 Creatinine 0.8 mg/dL (0.5-0.9) 10/05/23 09:03 GFR Calculation 73.4 mL/min (90-130) L 10/05/23 09:03 Glucose 99 mg/dL (65-115) 10/05/23 09:03 Calculated Osmolality 275 mOsm/kg (285-295) L 10/05/23 09:03 Calcium 8.3 mg/dL (8.5-10.5) L 10/05/23 09:03 Total Bilirubin 0.7 mg/dL (0.15-1.2) 10/05/23 09:03 AST 33 U/L (0-32) H 10/05/23 09:03 ALT 8 U/L (0-33) 10/05/23 09:03 Alkaline Phosphatase 156 U/L (35-105) H 10/05/23 09:03 Total Protein 6.6 g/dL (6.6-8.7) 10/05/23 09:03 Albumin 3.5 g/dL (3.5-5.2) 10/05/23 09:03 Globulin 3.1 g/dL (1.3-4.6) 10/05/23 09:03 All radiology interpretation(s) finalized by discharge Discharge Plan Discharge Patient Disposition: Home Clinical Impression: DVT (deep venous thrombosis), Pulmonary embolism Condition: Stable [facility] Start 5 mg (74 tabs) tablets,dose pack See Rx Instructions .ROUTE .COMPLEX Qty: 74 0RF Rx Instructions: orally per package directions No Action ondansetron [Zofran ODT] translingual prednisone 5 mg tablet 5 mg PO DAILY Qty: 90 1RF hydroxychloroquine 200 mg tablet 200 mg PO BID Qty: 60 5RF cephalexin 500 mg tablet 500 mg PO QID zolpidem 5 mg tablet PO PRN methocarbamol 500 mg tablet 500 mg PO DAILY PRN Patient Comments: at nighttime levothyroxine 25 mcg tablet See Rx Instructions .ROUTE .COMPLEX Qty: 30 0RF Dose Instruction: TAKE 1 TABLET BY MOUTH DAILY SUNDAY THRU SUNDAY, THEN 2 TABLETS BY MOUTH ON SUNDAY Rx Instructions: TAKE 1 TABLET BY MOUTH DAILY SUNDAY THRU SUNDAY, THEN 2 TABLETS BY MOUTH ON SUNDAY gabapentin 300 mg capsule 300 mg PO BID Qty: 60 3RF amlodipine 10 mg tablet 5 mg PO DAILY mupirocin 2 % ointment 1 applic TOPICAL PRN PRN (Reason: Skin Irritation) Discharge Orders: Discharge ED (Routine); Ordered 10/05/23 Ordered By: Constantine Goncalves Referrals: Randee Klein PA [Primary Care Provider] - Discharge Diet: Usual diet Discharge Activity: Resume usual activity Patient Instructions: Opioid Safety, Pain Management Activity Restrictions/Additional Instructions: Thank you for choosing [facility] for your healthcare needs today. It is very important that you follow up as instructed or that you return to the Emergency Department should you have concerns or if your condition changes or worsens in any way. You were seen today for swelling in your leg as well as chest discomfort and shortness of breath imaging confirmed you have a blood clot in the left leg likely secondary to inactivity after your hip fracture. CT of your head does not show any persistent signs of bleeding. CT of the chest showed blood clots in the lungs although relatively mild burden. This can be treated as an outpatient. Recommend starting Eliquis. Follow-up with your primary care doctor you should not stop with the Eliquis until you are advised specifically that it is safe to stop it is usually is much as a year before you will be able to stop. You should see your doctor for refills of the Eliquis. Coding Level of Care Code ED Clerical Office Worker for Jania Craig
[2023-10-05 09:33] LABS: Alanine Aminotransferase 8 U/L (0-33); Albumin Level 3.5 g/dL (3.5-5.2); Alkaline Phosphatase 156 U/L (35-105); Anion Gap 20.2 (5-19); Aspartate Amino Transferase 33 U/L (0-32); Blood Urea Nitrogen 16 mg/dL (6-20); Calcium 8.3 mg/dL (8.5-10.5); Carbon Dioxide 28 mmol/L (22-29); Chloride 87 mmol/L (98-107); Creatinine Clr Calc Pharmacy 77.2291; Globulin 3.1 g/dL (1.3-4.6); Glomerular Filtration Rate 73.4 mL/min (90-130); Glucose 99 mg/dL (65-115); Osmolality Calculated 275 mOsm/kg (285-295); Potassium 3.2 mmol/L (3.5-5.1); Sodium 132 mmol/L (136-145); Total Bilirubin 0.7 mg/dL (0.15-1.2); Total Protein 6.6 g/dL (6.6-8.7)
--- NOTE | 2023-10-05 10:07 | CTR_ITS ---
PROCEDURE INFORMATION: Exam: CTA Chest With Contrast Exam date and time: 10/05/2023 10:33 AM Age: 58 years old Clinical indication: Dyspnea; Additional info: Dvt/dypsnea/chest discomfort TECHNIQUE: Imaging protocol: Computed tomographic angiography of the chest with contrast. Exam focused on the arteries. 3D rendering (Not supervised by radiologist): MIP and/or 3D reconstructed images were created by the technologist. Radiation optimization: All CT scans at this facility use at least one of these dose optimization techniques: automated exposure control; mA and/or kV adjustment per patient size (includes targeted exams where dose is matched to clinical indication); or iterative reconstruction. Contrast material: OMNI 350; Contrast volume: 65 ml; Contrast route: INTRAVENOUS (IV); COMPARISON: CT angio chest PE protcl [id number] 06/19/2023 1:04 PM RADIATION DOSE METRICS: Total DLP (mGy-cm): 236.11 FINDINGS: Pulmonary arteries: Normal. No pulmonary emboli. Aorta: Unremarkable. No aortic aneurysm. No aortic dissection. Lungs: Segmental and subsegmental emboli are present to the upper and lower lobes on each side. Pleural spaces: Unremarkable. No pneumothorax. No pleural effusion. Heart: Unremarkable. No cardiomegaly. No pericardial effusion. Heart RV/LV ratio: RV LV ratio is less than 1. Lymph nodes: Unremarkable. No enlarged lymph nodes. Liver: Slightly heterogeneous hepatic uptake represents geographic steatosis. Bones/joints: Unremarkable. No acute fracture. Soft tissues: Unremarkable. CT/CT angio chest PE protcl [id number] IMPRESSION: Bilateral pulmonary emboli. Small/moderate thrombus burden.
--- NOTE | 2023-10-05 10:08 | CTR_ITS ---
PROCEDURE INFORMATION: Exam: CT Head Without Contrast Exam date and time: 10/05/2023 10:29 AM Age: 58 years old Clinical indication: History of subdural hematoma; needs anticoagulation, ataxia TECHNIQUE: Imaging protocol: Computed tomography of the head without contrast. Radiation optimization: All CT scans at this facility use at least one of these dose optimization techniques: automated exposure control; mA and/or kV adjustment per patient size (includes targeted exams where dose is matched to clinical indication); or iterative reconstruction. COMPARISON: CT head wo con* [id number] 08/03/2023 3:27 PM RADIATION DOSE METRICS: Total DLP (mGy-cm): 1010.73 FINDINGS: Brain: No acute intracranial hemorrhage. Lacunar infarcts within/adjacent to the basal ganglia, bilaterally, are unchanged. No mass, mass effect or midline shift. There is no evidence of acute large vessel infarct. The subcortical and periventricular white matter is normal in attenuation. The posterior fossa is grossly unremarkable; however, it is partially obscurred by beam hardening artifact. Cerebral ventricles: The ventricles are normal in configuration. Pituitary gland and sella: The sella turcica appears empty; similar to prior Paranasal sinuses: The visualized paranasal sinuses are clear. Mastoid air cells: No mastoid effusion. Orbital cavities: The visualized orbits are unremarkable. Bones: No acute fracture is seen. Soft tissues: No significant scalp soft tissue swelling is seen. CT/CT head wo con* [id number] IMPRESSION: 1. No acute intracranial hemorrhage. 2. Lacunar infarcts within/adjacent to the basal ganglia, bilaterally, are unchanged.
[2023-10-05] MEDS: iohexol 350 mg/mL 500 mL Btl (per mL) IV (10:34)
[2023-10-05] MEDS: fondaparinux 2.5 mg/0.5 mL Syringe 7.5 MG SUBCUT (11:14)
== END 2023-10-05 11:50 | disposition home or self-care (01) ==
PROVIDERS: Emergency Provider Family Medicine; PCP Physician Assistant
DX: I26.99 Other pulmonary embolism without acute cor pulmonale (principal); I82.412 Acute embolism and thrombosis of left femoral vein; I82.432 Acute embolism and thrombosis of left popliteal vein; I82.452 Acute embolism and thrombosis of left peroneal vein; I10 Essential (primary) hypertension
CPT/HCPCS: 36415; 70450; 71045; 71275; 80053; 85025; 93971; 96372; 99285; J1652; Q9967

== ENCOUNTER 2023-10-23 13:52 | Outpatient (RCR) | payer MEDICARE, SELFPAY | END 2023-10-24 23:59 | disposition home or self-care (01) | LOC: SPT 13:52 | PROVIDERS: Visit Provider Orthopaedic Surgery Orthopaedic Trauma | DX: Z47.1 Aftercare following joint replacement surgery (principal); Z96.642 Presence of left artificial hip joint; M76.32 Iliotibial band syndrome, left leg | CPT/HCPCS: 97161 ==

== ENCOUNTER 2023-10-25 06:00 | Outpatient (RCR) | payer MEDICARE, SELFPAY | END 2023-11-24 23:59 | disposition home or self-care (01) | LOC: SPT 06:00 | PROVIDERS: PCP Physician Assistant; Visit Provider Orthopaedic Surgery Orthopaedic Trauma | DX: Z47.1 Aftercare following joint replacement surgery (principal); Z96.642 Presence of left artificial hip joint; M76.32 Iliotibial band syndrome, left leg | CPT/HCPCS: 97110 ==

== ENCOUNTER → 2023-11-13 09:02 | Outpatient (BNVA) | payer MEDICARE, SELFPAY | PROVIDERS: PCP Physician Assistant; Visit Provider Specialist | DX: S09.90XA Unspecified injury of head, initial encounter (principal); R29.90 Unspecified symptoms and signs involving the nervous system; G63 Polyneuropathy in diseases classified elsewhere; M79.7 Fibromyalgia; G93.32 Myalgic encephalomyelitis/chronic fatigue syndrome; W19.XXXA Unspecified fall, initial encounter | CPT/HCPCS: 99214; 99215 ==

== ENCOUNTER → 2023-11-14 07:22 | Outpatient (BNVA) | payer MEDICARE, SELFPAY | PROVIDERS: PCP Physician Assistant; Visit Provider Specialist | DX: G93.32 Myalgic encephalomyelitis/chronic fatigue syndrome; R29.90 Unspecified symptoms and signs involving the nervous system; M79.7 Fibromyalgia; G62.89 Other specified polyneuropathies | CPT/HCPCS: 80503; 82945; 84157; 86592; 87070; 87075; 87205; 89050; 99213 ==

== ENCOUNTER 2023-11-25 06:00 | Outpatient (RCR) | payer MEDICARE, SELFPAY | END 2023-12-24 23:59 | disposition home or self-care (01) | LOC: SPT 06:00 | PROVIDERS: PCP Physician Assistant; Visit Provider Orthopaedic Surgery Orthopaedic Trauma | DX: Z47.1 Aftercare following joint replacement surgery (principal); Z96.642 Presence of left artificial hip joint; M76.32 Iliotibial band syndrome, left leg | CPT/HCPCS: 97110; 97112; 97116; 97164 ==

== ENCOUNTER 2023-12-25 06:00 | Outpatient (RCR) | payer MEDICARE, SELFPAY | END 2024-01-24 23:59 | disposition home or self-care (01) | LOC: SPT 06:00 | PROVIDERS: PCP Physician Assistant; Visit Provider Orthopaedic Surgery Orthopaedic Trauma | DX: Z47.1 Aftercare following joint replacement surgery (principal); Z96.642 Presence of left artificial hip joint | CPT/HCPCS: 97110 ==

== ENCOUNTER 2024-01-25 06:00 | Outpatient (RCR) | payer MEDICARE, SELFPAY | END 2024-02-23 23:59 | disposition home or self-care (01) | LOC: SPT 06:00 | PROVIDERS: Visit Provider Orthopaedic Surgery Orthopaedic Trauma | DX: Z47.1 Aftercare following joint replacement surgery (principal); Z96.642 Presence of left artificial hip joint; M76.32 Iliotibial band syndrome, left leg | CPT/HCPCS: 97110 ==

== ENCOUNTER 2024-02-13 08:23 | Outpatient (RCR) | payer MEDICARE, SELFPAY | END 2024-02-23 23:59 | disposition home or self-care (01) | LOC: SPT 08:23 | PROVIDERS: Visit Provider Physician Assistant | DX: R42 Dizziness and giddiness (principal) | CPT/HCPCS: 95992; 97112; 97161 ==

== ENCOUNTER 2024-03-04 14:20 | Emergency (ER) | payer MEDICARE, SELFPAY ==
--- NOTE | 2024-03-04 14:23 | XR_ITS ---
WS: [id number] Exam: XR chest 1V portable [id number] Date/Time of Exam: 03/04/2024 3:02 PM Reason For Exam: cp Comparison 10/05/2023. Lungs are clear and fully expanded. Normal cardiomediastinal silhouette. No pleural effusions. Bony s tructures are intact. XR/XR chest 1V portable [id number] IMPRESSION: 1. No acute cardiopulmonary finding.
--- NOTE | 2024-03-04 14:26 | ECG_ITS ---
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 Measurements Intervals [place] Rate: 122 P: 71 ME: 149 QRS: 41 QRSD: 82 T: 60 QT: 284 QTc: 405 Interpretive Statements SINUS TACHYCARDIA ABNORMAL RHYTHM ECG Compared to ECG 08/03/2023 14:12:18 No significant changes Electronically Signed On 03-05-2024 01:03:09 SUMMER SESSIONS DIRECTOR by Ana Luisa Morrow M.D. [email or web address]
[2024-03-04 14:31] VITALS: BP 159/89; PULSE 125; RESP 20; TEMP 36.8; O2SAT 99; BMI 25.8
--- NOTE | 2024-03-04 14:47 | W.ED.CHESTPA ---
HPI - Chest Pain General: Chief Complaint: Chest Pain Stated Complaint: SOB chest pain high bp Time Seen by Provider: 03/04/24 14:35 Source: patient Mode of arrival: ambulatory Limitations: no limitations History of Present Illness: 58-year-old female states she started having chest pain this morning states been a pressure type pain has been having dyspnea along with nausea vomiting. Patient appears anxious here states she has been having some shaking she is tachycardic as well she does have a history of PE she is on blood thinners. Associated symptoms: Reports dyspnea, nausea and vomiting; Deny abdominal pain or fever(s) Related Data Home Medications Medication Instructions Recorded Confirmed amlodipine 10 mg tablet 10 mg PO DAILY 06/19/23 03/04/24 mupirocin 2 % topical ointment 1 applic topical PRN PRN Skin 08/03/23 03/04/24 Irritation methocarbamol 500 mg tablet 500 mg PO DAILY PRN spasm 09/18/23 03/04/24 zolpidem 5 mg tablet 5 mg PO BEDTIME PRN Insomnia 09/18/23 03/04/24 duloxetine 60 mg capsule,delayed 60 mg PO DAILY 11/13/23 03/04/24 release furosemide 40 mg tablet 40 mg PO DAILY PRN Edema 11/13/23 03/04/24 apixaban 5 mg tablet (Eliquis) 5 mg PO BID 03/04/24 03/04/24 cyanocobalamin (vitamin B-12) 1,000 mcg IM Q30D 03/04/24 03/04/24 1,000 mcg/mL injection solution Previous Rx's Medication Instructions Recorded levothyroxine 25 mcg tablet See Rx Instructions .Route 07/23/23 .COMPLEX #30 tabs prednisone 5 mg tablet 5 mg PO DAILY #90 tabs 08/27/23 prednisone 10 mg tablet See Rx Instructions .Route 11/01/23 .COMPLEX #30 tabs midodrine 5 mg tablet 5 mg PO TID #90 tabs 11/13/23 clobetasol 0.05 % topical cream 1 applic topical BID rash 2 weeks 01/31/24 #45 grams hydroxychloroquine 200 mg tablet 200 mg PO BID #60 tabs 02/07/24 ondansetron 4 mg disintegrating 4 mg PO Q6H PRN nausea and 03/04/24 tablet vomiting #14 tabs Allergies Allergy/AdvReac Type Severity Reaction Status Date / Time Alpha-Gal Allergy Severe ALGY-Swell Verified 03/04/24 14:31 (Uctvmqqot-Uzqwn-6,3-Gala Lip/Tongue/Throat clarithromycin [From Biaxin] Allergy ADR-Nausea Verified 03/04/24 14:31 Review of Systems Const: Denies: fever(s), chills, body aches or change in appetite ENMT: Denies: throat pain or dental pain Card: Reports: chest pain Resp: Reports: dyspnea GI: Reports: nausea and vomiting; Denies: abdominal pain Musc: Denies: neck pain or back pain Skin/Breast: Denies: rash Neuro: Denies: headache(s) PFSH ED PFSH: Medical History Peripheral neuropathy 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 Hypothyroidism Exertional shortness of breath Immunization counseling High risk medication use 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 Positive ANDREW (antinuclear antibody) Inflammatory arthritis Gout Hypertension Surgical History History of left hip replacement History of foot surgery (2015) Plantar fasciitis History of surgical removal of pilonidal cyst (1999) History of carpal tunnel release (1999) History of bunionectomy of left great toe (2018) History of bunionectomy of right great toe (01/24/23) History of esophagogastroduodenoscopy (EGD) (03/29/23) [facility] 8 years History of ventral hernia repair (05/08/22) Social History Smoking and tobacco/nicotine status: never used tobacco/nicotine Alcohol intake: current Physical Exam Const: COMMON NORMALS: no acute distress, patient oriented x3 and healthy appearing HENMT: COMMON NORMALS: normocephalic and atraumatic HEAD & SCALP: normocephalic and atraumatic Eye: COMMON NORMALS: conjunctivae normal CONJUNCTIVA: Yes conjunctivae normal Neck/C-Spine: COMMON NORMALS: full ROM and supple Chest: COMMONS NORMALS: normal inspection of the chest Resp: COMMON NORMALS: normal respiratory effort, No retractions, No use of accessory muscles and clear to auscultation bilaterally AUSCULTATION: clear to auscultation bilaterally Cardio: COMMON NORMALS: regular rhythm and No murmurs present (Cardio) RATE: tachycardic RHYTHM: regular rhythm GI: COMMON NORMALS: Normal to inspection, nondistended, normoactive bowel sounds present, Soft to palpation, non-tender and no masses PALPATION: Yes Soft to palpation Extremity: COMMON NORMALS: normal to inspection and full ROM Neuro: COMMON NORMALS: patient oriented x3, moves all extremities and no focal motor deficits Psych: COMMON NORMALS: mental status grossly normal, Normal thought process present and cooperative THOUGHT PROCESS: Normal thought process present Skin: COMMON NORMALS: no rashes or lesions noted and no wounds GENERAL SKIN EXAM: no rashes or lesions noted Course Vital Signs: Vital signs: Vital Signs Temperature 98.3 F 03/04/24 14:31 Pulse Rate 114 H 03/04/24 18:39 Respiratory Rate 20 H 03/04/24 14:31 Blood Pressure 152/102 03/04/24 18:39 Pulse Oximetry 100 03/04/24 18:39 Oxygen Delivery Me thod Room Air 03/04/24 18:03 MDM - Chest Pain Medical Decision Making Patient presents for chest pains atypical she is quite anxious here send this is likely due to anxiety initial repeat troponins here are negative no signs of ACS no signs of PE patient stable for discharge follow-up PCP return if worsening. Medical Records I reviewed the patient's medical records. Lab Data I reviewed the patient's lab results. 03/04/24 14:48 03/04/24 14:48 Radiology Impressions Chest X-Ray 03/04/24 14:23 IMPRESSION: 1. No acute cardiopulmonary finding. Chest CTA 03/04/24 15:29 IMPRESSION: 1. Contrast optimization within the superior vena cava or venous side of the exam instead of the pulmonary arteries, though without findings to indicate pulmonary embolus within the main pulmonary arteries or the major proximal branches. Follow-up as clinically indicated. 2. Posterior dependent gavwa-xmrewdt-vtcs-left atelectasis. No infiltrate or effusion. 3. Jwra-uh-xjdxhdvz coronary artery calcification. Laboratory Results WBC 4.78 10^3/uL (3.29-11.43) 03/04/24 14:48 RBC 3.77 10^6/uL (3.85-5.65) L 03/04/24 14:48 Hgb 12.80 g/dL (11.27-16.99) 03/04/24 14:48 Hct 38.1 % (36-47) 03/04/24 14:48 MCV 101.1 fl (85-98) H 03/04/24 14:48 MCH 34.0 pg (27-33) H 03/04/24 14:48 MCHC 33.6 g/dL (30-55) 03/04/24 14:48 RDW 13.4 % (12.1-15.1) 03/04/24 14:48 Plt Count 207 10^3/cmm (157-399) 03/04/24 14:48 MPV 9.6 fL (7.4-10.4) 03/04/24 14:48 Neut % (Auto) 52.1 % 03/04/24 14:48 Lymph % (Auto) 29.1 % 03/04/24 14:48 [place] % (Auto) 17.6 % 03/04/24 14:48 Eos % (Auto) 0.4 % 03/04/24 14:48 Baso % (Auto) 0.6 % 03/04/24 14:48 Neut # (Auto) 2.49 10^3/uL (1.8-7.7) 03/04/24 14:48 Lymph # (Auto) 1.4 10^3/uL (0.8-4.8) 03/04/24 14:48 [place] # (Auto) 0.8 10^3/uL (0.2-0.9) 03/04/24 14:48 Eos # (Auto) 0.0 10^3/uL (0.0-0.8) 03/04/24 14:48 Baso # (Auto) 0.0 10^3/uL (0.0-0.1) 03/04/24 14:48 Nucleated RBC % (auto) 0 % 03/04/24 14:48 Nucleated RBCs # 0.0 /100WBC 03/04/24 14:48 D-Dimer 0.60 ug/mLFEU (0-0.59) H 03/04/24 14:48 Sodium 135 mmol/L (136-145) L 03/04/24 14:48 Potassium 3.8 mmol/L (3.5-5.1) 03/04/24 14:48 Chloride 93 mmol/L (98-107) L 03/04/24 14:48 Carbon Dioxide 24 mmol/L (22-29) 03/04/24 14:48 Anion Gap 21.8 (5-19) H 03/04/24 14:48 BUN 11 mg/dL (6-20) 03/04/24 14:48 Creatinine 0.7 mg/dL (0.5-0.9) 03/04/24 14:48 GFR Calculation 85.6 mL/min (90-130) L 03/04/24 14:48 Glucose 93 mg/dL (65-115) 03/04/24 14:48 Calculated Osmolality 279 mOsm/kg (285-295) L 03/04/24 14:48 Calcium 8.9 mg/dL (8.5-10.5) 03/04/24 14:48 Total Bilirubin 0.9 mg/dL (0.15-1.2) 03/04/24 14:48 AST 35 U/L (0-32) H 03/04/24 14:48 ALT 21 U/L (0-33) 03/04/24 14:48 Alkaline Phosphatase 150 U/L (35-105) H 03/04/24 14:48 Troponin T Baseline 20 ng/L (0-10) H 03/04/24 14:48 Troponin T 120 Minute 19.86 ng/L (0-10) H 03/04/24 17:12 Delta Troponin T -0.14 ABS# (0-10) L 03/04/24 17:12 Total Protein 6.5 g/dL (6.6-8.7) L 03/04/24 14:48 Albumin 4.2 g/dL (3.5-5.2) 03/04/24 14:48 Globulin 2.3 g/dL (1.3-4.6) 03/04/24 14:48 Lipase 32 U/L (13-60) 03/04/24 14:48 Ethyl Alcohol < 10 mg/dL (0-10) 03/04/24 14:48 All radiology interpretation(s) finalized by discharge EKG Data EKG 1: I personally reviewed and interpreted this EKG as follows: EKG interpretation date: 03/04/24 EKG interpretation time: 14:26 Interpretation: sinus tach hr [address] elevation qrs 82 qtc 356 EKG 2: I personally reviewed and interpreted this EKG as follows: EKG interpretation date: 03/04/24 EKG interpretation time: 16:32 Interpretation: sinus tach hr [address] elevation qrs 86 qtc 391 Discharge Plan Discharge Patient Disposition: Home Clinical Impression: Chest pain Condition: Stable Prescriptions: New ondansetron 4 mg tablet,disintegrating 4 mg PO Q6H PRN (Reason: nausea and vomiting) Qty: 14 0RF No Action prednisone 5 mg tablet 5 mg PO DAILY Qty: 90 1RF furosemide 40 mg tablet 40 mg PO DAILY PRN (Reason: Edema) duloxetine 60 mg capsule,delayed release(DR/EC) 60 mg PO DAILY midodrine 5 mg tablet 5 mg PO TID Qty: 90 3RF Rx Instructions: do not give last dose of day after 6PM or within 4 hrs of bedtime zolpidem 5 mg tablet 5 mg PO BEDTIME PRN (Reason: Insomnia) methocarbamol 500 mg tablet 500 mg PO DAILY PRN (Reason: spasm ) Patient Comments: at nighttime levothyroxine 25 mcg tablet See Rx Instructions .ROUTE .COMPLEX Qty: 30 0RF Dose Instruction: TAKE 1 TABLET BY MOUTH DAILY SUNDAY THRU SUNDAY, THEN 2 TABLETS BY MOUTH ON SUNDAY Rx Instructions: TAKE 1 TABLET BY MOUTH DAILY SUNDAY THRU SUNDAY, THEN 2 TABLETS BY MOUTH ON SUNDAY prednisone 10 mg tablet See Rx Instructions .ROUTE .COMPLEX Qty: 30 1RF Dose Instruction: TAKE 1 TO 2 TABLETS BY MOUTH DAILY FOR 3 TO 7 DAYS NEEDED FOR JOINT PAIN OR FLARE Rx Instructions: TAKE 1 TO 2 TABLETS BY MOUTH DAILY FOR 3 TO 7 DAYS NEEDED FOR JOINT PAIN OR FLARE clobetasol 0.05 % cream 1 applic topical BID 14 Days Qty: 45 1RF hydroxychloroquine 200 mg tablet 200 mg PO BID Qty: 60 2RF amlodipine 10 mg tablet 10 mg PO DAILY mupirocin 2 % ointment 1 applic TOPICAL PRN PRN (Reason: Skin Irritation) Eliquis 5 mg tablet 5 mg PO BID cyanocobalamin (vitamin B-12) 1,000 mcg/mL solution 1,000 mcg IM Q30D Discharge Orders: Discharge ED (Routine); Ordered 03/04/24 Ordered By: Beatriz Richardson Discharge Diet: Advance as tolerated Discharge Activity: Resume usual activity Patient Instructions: Chest Pain (ED) Coding Level of Care Code 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
[2024-03-04 15:02] LABS: Basophils % 0.6 %; Eosinophils % 0.4 %; Hematocrit 38.1 % (36-47); Lymphocytes # 1.4 10^3/uL (0.8-4.8); Lymphocytes % 29.1 %; Mean Corpuscular HGB Conc 33.6 g/dL (30-55); Mean Corpuscular Volume 101.1 fl (85-98); Mean Platelet Volume 9.6 fL (7.4-10.4); Monocytes # 0.8 10^3/uL (0.2-0.9); Monocytes % 17.6 %; Neutrophils # 2.49 10^3/uL (1.8-7.7); Neutrophils % 52.1 %; Nucleated Red Blood Cells % 0 %; Platelet Count 207 10^3/cmm (157-399); Red Blood Count 3.77 10^6/uL (3.85-5.65); Red Cell Distribution Width 13.4 % (12.1-15.1); White Blood Count 4.78 10^3/uL (3.29-11.43)
[2024-03-04] MEDS: aspirin 81 mg Chew Tablet 324 MG PO (15:02)
[2024-03-04] MEDS: LORazepam 2 mg/mL INJ 1 mL 1 MG IVP (15:02)
[2024-03-04 15:04] VITALS: BP 169/114; PULSE 112; O2SAT 98
[2024-03-04 15:21] LABS: Troponin(5th) Baseline 20 ng/L (0-10)
--- NOTE | 2024-03-04 15:29 | CTR_ITS ---
PROCEDURE INFORMATION: Exam: CTA Chest With Contrast Exam date and time: 03/04/2024 4:19 PM Age: 58 years old Clinical indication: Shortness of breath; Additional info: SOB TECHNIQUE: Imaging protocol: Computed tomographic angiography of the chest with contrast. Exam focused on the arteries. 3D rendering (Not supervised by radiologist): MIP and/or 3D reconstructed images were created by the technologist. Radiation optimization: All CT scans at this facility use at least one of these dose optimization techniques: automated exposure control; mA and/or kV adjustment per patient size (includes targeted exams where dose is matched to clinical indication); or iterative reconstruction. Contrast material: OMNI 350; Contrast volume: 100 ml; Contrast route: INTRAVENOUS (IV); COMPARISON: CT angio chest PE protcl [id number] 10/05/2023 10:33 AM RADIATION DOSE METRICS: Total DLP (mGy-cm): 373.57 FINDINGS: Pulmonary arteries: Contrast appears optimized within the superior vena cava or venous side of the exam instead of the pulmonary arteries. This results in less than optimal exam. No significant hypodense filling defect is seen within the main pulmonary arteries or the major proximal branches. Limited evaluation of smaller branches. Aorta: Unremarkable. No aortic aneurysm. No aortic dissection. Lungs: Lung windows demonstrate posterior dependent kxrrt-ezbkkfi-ytco-left atelectasis. No infiltrate or consolidation. No mass. Pleural spaces: No pleural effusion or pneumothorax. Heart: No significant cardiomegaly. No pericardial effusion. Mild to moderate coronary artery calcification. RV LV ratio is less than 1. Lymph nodes: No significant lymph node enlargement or lymphadenopathy. Bones/joints: Bone windows show mild spondylotic change thoracic spine. Soft tissues: Unremarkable. CT/CT angio chest PE protcl [id number] IMPRESSION: 1. Contrast optimization within the superior vena cava or venous side of the exam instead of the pulmonary arteries, though without findings to indicate pulmonary embolus within the main pulmonary arteries or the major proximal branches. Follow-up as clinically indicated. 2. Posterior dependent twlyc-dkrqhvs-deyq-left atelectasis. No infiltrate or effusion. 3. Uixa-mj-goxkqwns coronary artery calcification.
[2024-03-04 15:32] LABS: Alanine Aminotransferase 21 U/L (0-33); Albumin Level 4.2 g/dL (3.5-5.2); Alkaline Phosphatase 150 U/L (35-105); Anion Gap 21.8 (5-19); Aspartate Amino Transferase 35 U/L (0-32); Blood Urea Nitrogen 11 mg/dL (6-20); Calcium 8.9 mg/dL (8.5-10.5); Carbon Dioxide 24 mmol/L (22-29); Chloride 93 mmol/L (98-107); Creatinine Clr Calc Pharmacy 88.2619; Globulin 2.3 g/dL (1.3-4.6); Glomerular Filtration Rate 85.6 mL/min (90-130); Glucose 93 mg/dL (65-115); Lipase 32 U/L (13-60); Osmolality Calculated 279 mOsm/kg (285-295); Potassium 3.8 mmol/L (3.5-5.1); Sodium 135 mmol/L (136-145); Total Bilirubin 0.9 mg/dL (0.15-1.2); Total Protein 6.5 g/dL (6.6-8.7)
[2024-03-04 15:33] LABS: Alcohol Level < 10 mg/dL (0-10)
[2024-03-04] MEDS: labetalol 5 mg/mL SDV 20mL 10 MG IVP (15:35)
[2024-03-04] MEDS: iohexol 350 mg/mL 500 mL Btl (per mL) IV (16:22)
--- NOTE | 2024-03-04 16:23 | ECG_ITS ---
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 Measurements Intervals [place] Rate: 105 P: 66 CA: 152 QRS: 52 QRSD: 86 T: 57 QT: 330 QTc: 437 Interpretive Statements SINUS TACHYCARDIA ABNORMAL RHYTHM ECG Compared to ECG 03/04/2024 14:26:17 No significant changes Electronically Signed On 03-05-2024 01:09:39 RN ONCOLOGY CLINICAL by Ana Luisa Morrow M.D. [id number]
[2024-03-04 17:29] VITALS: BP 144/90; PULSE 112; O2SAT 97
[2024-03-04 17:48] LABS: Troponin 5 2HR 19.86 ng/L (0-10); Troponin 5 2HR Delta -0.14 ABS# (0-10)
[2024-03-04 18:03] VITALS: BP 152/102; PULSE 101; O2SAT 95
[2024-03-04 18:39] VITALS: BP 152/102; PULSE 114; O2SAT 100
== END 2024-03-04 18:40 | disposition home or self-care (01) ==
PROVIDERS: Emergency Provider Emergency Medicine
DX: R07.9 Chest pain, unspecified (principal); Z79.01 Long term (current) use of anticoagulants; I10 Essential (primary) hypertension
CPT/HCPCS: 36415; 71045; 71275; 80053; 80307; 83690; 84484; 85025; 85378; 93005; 96374; 96375; 99285; J2060; J3490

== ENCOUNTER 2024-04-30 10:14 | Outpatient (CLI) | payer MEDICARE, SELFPAY ==
--- NOTE | 2024-04-30 10:48 | XR_ITS ---
WS: [id number] Right hip, 2 views, AP pelvis, 04/30/2024 Clinical Data: PAIN IN RIGHT HIP Comparison: Left hip, 06/24/2023 Findings: No fractures or dislocations are seen. The right hip shows sclerosis of the acetabular rim along with irregularity of the right femoral head. There is sclerotic change within the right femoral head. The left hip shows a stable arthroplasty. The soft tissues are not remarkable. The adjacent pelvis is no rmal. The SI joints and pubic symphysis are normal. XR/XR hip RT 2-3V wo/w pel* [id number] Impression: 1. Moderate osteoarthritis of the right hip. 2.. Left hip arthroplasty.
[2024-04-30 13:05] LABS: Free T4 Free Thyroxine 0.94 ng/dL (0.82-1.77); Thyroid Stimulating Hormone 2.61 uIU/mL (0.27-4.20)
== END 2024-04-30 10:15 | disposition home or self-care (01) ==
LOC: RADOUTREAD 10:43
PROVIDERS: Internal Medicine; PCP Physician Assistant; Visit Provider Nurse Practitioner Family
DX: I10 Essential (primary) hypertension (principal); R00.0 Tachycardia, unspecified; R55 Syncope and collapse; R13.10 Dysphagia, unspecified; E03.9 Hypothyroidism, unspecified; R06.02 Shortness of breath; R42 Dizziness and giddiness
CPT/HCPCS: 36415; 84439; 84443; 99214

== ENCOUNTER 2024-05-19 10:30 | Emergency (ER) | payer MEDICARE, SELFPAY ==
[2024-05-19] VITALS (8 sets, daily range): BP systolic 136–172; BP diastolic 93–120; PULSE 99–112; RESP 16–20; TEMP 36.9; O2SAT 96–100; BMI 28.0
--- NOTE | 2024-05-19 10:43 | CT_ITS ---
WS: [id number] CT HEAD TECHNIQUE: Noncontrast CT of the head obtained from the skullbase to the vertex. CLINICAL INFORMATION: fall COMPARISON: CT 10/05/2023 DLP: 1051.[address] scans at [facility] use at least one of these dose optimization techniques: automated exposure control; mA and/or kV adjustment per patient size (includes targeted exams where dose is matched to clinical indication); or iterative reconstruction. FINDINGS: No evidence of intracranial hemorrhage or mass effect. Ventricular system and basal cisterns are patent. Mild small vessel changes with mild parenchymal volume loss. Prominent perivascular space LEFT basal ganglia. No extra-axial fluid collections. No evidence of mass or mass effect. Normal vora-white differentiation. Paranasal sinuses and mastoid air cells are well aerated. .Normal visualized soft tissues. CT/CT head wo con* [id number] IMPRESSION: 1. No evidence of intracranial hemorrhage or mass effect. 2. No acute intracranial findings.
--- NOTE | 2024-05-19 11:20 | XRR_ITS ---
PROCEDURE INFORMATION: Exam: XR Chest Exam date and time: 05/19/2024 11:30 AM Age: 58 years old Clinical indication: Injury or trauma; Fall; Blunt trauma (contusions or hematomas) TECHNIQUE: Imaging protocol: Radiologic exam of the chest. Views: 1 view. COMPARISON: CT angio chest PE protcl [id number] 03/04/2024 4:19 PM FINDINGS: Lungs: Unremarkable. No consolidation. Pleural spaces: Unremarkable. No pleural effusion. No pneumothorax. Heart/Mediastinum: Unremarkable. No cardiomegaly. Bones/joints: Unremarkable. XR/XR chest 1V portable [id number] IMPRESSION: No acute findings.
--- NOTE | 2024-05-19 11:23 | ECG_ITS ---
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
--- NOTE | 2024-05-19 11:23 | W.ED.FALL ---
HPI - Fall General: Chief Complaint: Fall Stated Complaint: fall and hit head [facility] Time Seen by Provider: 05/19/24 11:11 Source: patient Mode of arrival: ambulatory Limitations: no limitations History of Present Illness: 58-year-old female states has been having syncopal events has been going on for roughly a year. She states she has had over 10 in the last year she had a history of subdural last year as well she states she had had 1 on Sunday and hit her head is on blood thinners 1 to make sure she does not have a subdural she denies any headache denies any vomiting Associated symptoms-after fall: Denies abdominal pain, chest pain, headache(s) or neck pain Related Data Home Medications ?Medication ?Instructions ?Recorded ?Confirmed amlodipine 10 mg tablet 10 mg PO DAILY 06/19/23 05/19/24 mupirocin 2 % topical ointment 1 applic topical PRN PRN Skin 08/03/23 05/19/24 Irritation methocarbamol 500 mg tablet 500 mg PO DAILY PRN spasm 09/18/23 05/19/24 zolpidem 5 mg tablet 5 mg PO BEDTIME PRN Insomnia 09/18/23 05/19/24 furosemide 40 mg tablet 40 mg PO DAILY PRN Edema 11/13/23 05/19/24 apixaban 5 mg tablet (Eliquis) 5 mg PO BID 03/04/24 05/19/24 cyanocobalamin (vitamin B-12) 1,000 mcg IM Q30D 03/04/24 05/19/24 1,000 mcg/mL injection solution ondansetron 4 mg disintegrating 8 mg PO Q6H PRN nausea and vomiting 05/19/24 05/19/24 tablet Previous Rx's ?Medication ?Instructions ?Recorded midodrine 5 mg tablet 5 mg PO TID #90 tabs 11/13/23 clobetasol 0.05 % topical cream 1 applic topical BID rash 2 weeks 01/31/24 #45 grams hydroxychloroquine 200 mg tablet 200 mg PO BID #60 tabs 02/07/24 prednisone 10 mg tablet See Rx Instructions .Route 03/11/24 .COMPLEX #30 tabs levothyroxine 25 mcg tablet See Rx Instructions .Route 04/02/24 .COMPLEX #30 tabs prednisone 5 mg tablet 5 mg PO DAILY #90 tabs 05/01/24 Allergies Allergy/AdvReac Type Severity Reaction Status Date / Time Alpha-Gal Allergy Severe ALGY-Swell Verified 05/19/24 11:08 (Zedbwcwmr-Zqfwk-6,3-Gala Lip/Tongue/Throat clarithromycin (From Biaxin) Allergy ADR-Nausea Verified 05/19/24 11:08 Review of Systems Const: Denies: fever(s), chills, body aches or change in appetite Eyes: Denies: blurry vision or eye discomfort ENMT: Denies: throat pain or dental pain Card: Reports: syncope; Denies: chest pain Resp: Denies: dyspnea GI: Denies: abdominal pain, nausea, vomiting or diarrhea Musc: Denies: neck pain or back pain Skin/Breast: Denies: rash Neuro: Denies: headache(s) PFSH ED PFSH: Medical History Peripheral neuropathy 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 Hypothyroidism Exertional shortness of breath Immunization counseling High risk medication use Positive sm/SHELLFISH 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 antibody Positive ANDREW (antinuclear antibody) Inflammatory arthritis Gout Hypertension Surgical History History of left hip replacement History of foot surgery (2015) Plantar fasciitis History of surgical removal of pilonidal cyst (1999) History of carpal tunnel release (1999) History of bunionectomy of left great toe (2018) History of bunionectomy of right great toe (01/24/23) History of esophagogastroduodenoscopy (EGD) (03/29/23) [facility] 8 years History of ventral hernia repair (05/08/22) Social History Smoking and tobacco/nicotine status: never used tobacco/nicotine Alcohol intake: current Physical Exam Const: COMMON NORMALS: no acute distress, patient oriented x3 and healthy appearing HENMT: COMMON NORMALS: normocephalic and atraumatic HEAD & SCALP: normocephalic and atraumatic Eye: COMMON NORMALS: conjunctivae normal CONJUNCTIVA: Yes conjunctivae normal Neck/C-Spine: COMMON NORMALS: full ROM and supple Chest: COMMONS NORMALS: normal inspection of the chest and normal palpation of entire chest wall Resp: COMMON NORMALS: normal respiratory effort, No retractions, No use of accessory muscles and clear to auscultation bilaterally AUSCULTATION: clear to auscultation bilaterally Cardio: COMMON NORMALS: regular rate, regular rhythm and No murmurs present (Cardio) RATE: regular rate RHYTHM: regular rhythm Extremity: COMMON NORMALS: normal to inspection and full ROM Neuro: COMMON NORMALS: patient oriented x3, moves all extremities and no focal motor deficits Psych: COMMON NORMALS: mental status grossly normal, Normal thought process present and cooperative THOUGHT PROCESS: Normal thought process present Skin: COMMON NORMALS: no rashes or lesions noted and no wounds GENERAL SKIN EXAM: no rashes or lesions noted Course Vital Signs: Vital signs: Vital Signs Temperature 98.5 F 05/19/24 10:55 Pulse Rate 102 H 05/19/24 13:42 Respiratory Rate 16 05/19/24 13:42 Blood Pressure 136/93 05/19/24 13:42 Pulse Oximetry 96 05/19/24 13:42 Oxygen Delivery Me thod Room Air 05/19/24 10:55 MDM - Fall Medical Decision Making Patient presents here with close head injury along with dizziness she has had no symptoms here imaging workup here is all normal no signs of any hemorrhage she feels improved she stable for discharge she has to follow-up as scheduled return if worsening she understands agrees to plan no signs of strokes. Medical Records I reviewed the patient's medical records. Lab Data I reviewed the patient's lab results. 05/19/24 12:38 05/19/24 12:[address] 05/19/24 10:43 IMPRESSION: 1. No evidence of intracranial hemorrhage or mass effect. 2. No acute intracranial findings. Chest X-Ray 05/19/24 11:20 IMPRESSION: No acute findings. Laboratory Results WBC 4.58 10^3/uL (3.29-11.43) 05/19/24 12:38 RBC 3.72 10^6/uL (3.85-5.65) L 05/19/24 12:38 Hgb 13.20 g/dL (11.27-16.99) 05/19/24 12:38 Hct 40.6 % (36-47) 05/19/24 12:38 MCV 109.1 fl (85-98) H 05/19/24 12:38 MCH 35.5 pg (27-33) H 05/19/24 12:38 MCHC 32.5 g/dL (30-55) 05/19/24 12:38 RDW 15.0 % (12.1-15.1) 05/19/24 12:38 Plt Count 198 10^3/cmm (157-399) 05/19/24 12:38 MPV 10.5 fL (7.4-10.4) H 05/19/24 12:38 Neut % (Auto) 78.0 % 05/19/24 12:38 Lymph % (Auto) 15.1 % 05/19/24 12:38 [place] % (Auto) 6.3 % 05/19/24 12:38 Eos % (Auto) 0.0 % 05/19/24 12:38 Baso % (Auto) 0.2 % 05/19/24 12:38 Neut # (Auto) 3.57 10^3/uL (1.8-7.7) 05/19/24 12:38 Lymph # (Auto) 0.7 10^3/uL (0.8-4.8) L 05/19/24 12:38 [place]phill # (Auto) 0.3 10^3/uL (0.2-0.9) 05/19/24 12:38 Eos # (Auto) 0.0 10^3/uL (0.0-0.8) 05/19/24 12:38 Baso # (Auto) 0.0 10^3/uL (0.0-0.1) 05/19/24 12:38 Nucleated RBC % (auto) 0.4 % 05/19/24 12:38 Nucleated RBCs # 0.0 /100WBC 05/19/24 12:38 PT 14.40 SECONDS (12.1-14.9) 05/19/24 12:38 INR 1.05 (0.8-1.2) 05/19/24 12:38 Sodium 137 mmol/L (136-145) 05/19/24 12:38 Potassium 3.8 mmol/L (3.5-5.1) 05/19/24 12:38 Chloride 94 mmol/L (98-107) L 05/19/24 12:38 Carbon Dioxide 23 mmol/L (22-29) 05/19/24 12:38 Anion Gap 23.8 (5-19) H 05/19/24 12:38 BUN 12 mg/dL (6-20) 05/19/24 12:38 Creatinine 0.7 mg/dL (0.5-0.9) 05/19/24 12:38 GFR Calculation 85.6 mL/min (90-130) L 05/19/24 12:38 Glucose 136 mg/dL (65-115) H 05/19/24 12:38 Calculated Osmolality 286 mOsm/kg (285-295) 05/19/24 12:38 Calcium 9.4 mg/dL (8.5-10.5) 05/19/24 12:38 Total Bilirubin 0.8 mg/dL (0.15-1.2) 05/19/24 12:38 AST 81 U/L (0-32) H 05/19/24 12:38 ALT 19 U/L (0-33) 05/19/24 12:38 Alkaline Phosphatase 165 U/L (35-105) H 05/19/24 12:38 Total Protein 7.0 g/dL (6.6-8.7) 05/19/24 12:38 Albumin 3.8 g/dL (3.5-5.2) 05/19/24 12:38 Globulin 3.2 g/dL (1.3-4.6) 05/19/24 12:38 All radiology interpretation(s) finalized by discharge EKG Data EKG 1: I personally reviewed and interpreted this EKG as follows: EKG interpretation date: 05/19/24 EKG interpretation time: 11:03 Interpretation: sinus tach hr [address] elevation qrs 86 qtc 357 EKG 2: I personally reviewed and interpreted this EKG as follows: EKG interpretation date: 05/19/24 EKG interpretation time: 11:23 Interpretation: sinus tach hr [address] elevation qrs 86 qtc 368 Discharge Plan Discharge Patient Disposition: Home Clinical Impression: Syncope, Closed head injury Condition: Stable Prescriptions: No Action furosemide 40 mg tablet 40 mg PO DAILY PRN (Reason: Edema) midodrine 5 mg tablet 5 mg PO TID Qty: 90 3RF Rx Instructions: do not give last dose of day after 6PM or within 4 hrs of bedtime zolpidem 5 mg tablet 5 mg PO BEDTIME PRN (Reason: Insomnia) methocarbamol 500 mg tablet 500 mg PO DAILY PRN (Reason: spasm ) Patient Comments: at nighttime clobetasol 0.05 % cream 1 applic topical BID 14 Days Qty: 45 1RF hydroxychloroquine 200 mg tablet 200 mg PO BID Qty: 60 2RF prednisone 10 mg tablet See Rx Instructions .ROUTE .COMPLEX Qty: 30 1RF Dose Instruction: TAKE 1 TO 2 TABLETS BY MOUTH DAILY FOR 3 TO 7 DAYS NEEDED FOR JOINT PAIN OR FLARE Rx Instructions: TAKE 1 TO 2 TABLETS BY MOUTH DAILY FOR 3 TO 7 DAYS NEEDED FOR JOINT PAIN OR FLARE levothyroxine 25 mcg tablet See Rx Instructions .ROUTE .COMPLEX Qty: 30 0RF Dose Instruction: TAKE 1 TABLET BY MOUTH DAILY SUNDAY THRU SUNDAY, THEN 2 TABLETS BY MOUTH ON SUNDAY Rx Instructions: TAKE 1 TABLET BY MOUTH DAILY SUNDAY THRU SUNDAY, THEN 2 TABLETS BY MOUTH ON SUNDAY prednisone 5 mg tablet 5 mg PO DAILY Qty: 90 1RF amlodipine 10 mg tablet 10 mg PO DAILY mupirocin 2 % ointment 1 applic TOPICAL PRN PRN (Reason: Skin Irritation) Eliquis 5 mg tablet 5 mg PO BID cyanocobalamin (vitamin B-12) 1,000 mcg/mL solution 1,000 mcg IM Q30D ondansetron 4 mg tablet,disintegrating 8 mg PO Q6H PRN (Reason: nausea and vomiting) Discharge Orders: Discharge ED (Routine); Ordered 05/19/24 Ordered By: Beatriz Richardson Referrals: Randee Klein PA [Primary Care Provider] - Discharge Diet: Advance as tolerated Discharge Activity: Resume usual activity Patient Instructions: Head Injury (ED) Print Language: Stateless Coding Level of Care Code ED 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
[2024-05-19] MEDS: labetalol 5 mg/mL SDV 20mL 10 MG IVP (11:47)
[2024-05-19 13:05] LABS: Basophils % 0.2 %; Hematocrit 40.6 % (36-47); Lymphocytes # 0.7 10^3/uL (0.8-4.8); Lymphocytes % 15.1 %; Mean Corpuscular HGB Conc 32.5 g/dL (30-55); Mean Corpuscular Hemoglobin 35.5 pg (27-33); Mean Corpuscular Volume 109.1 fl (85-98); Mean Platelet Volume 10.5 fL (7.4-10.4); Monocytes # 0.3 10^3/uL (0.2-0.9); Monocytes % 6.3 %; Neutrophils # 3.57 10^3/uL (1.8-7.7); Nucleated Red Blood Cells % 0.4 %; Platelet Count 198 10^3/cmm (157-399); Red Blood Count 3.72 10^6/uL (3.85-5.65); White Blood Count 4.58 10^3/uL (3.29-11.43)
[2024-05-19 13:27] LABS: INR 1.05 (0.8-1.2)
[2024-05-19 13:35] LABS: Alanine Aminotransferase 19 U/L (0-33); Albumin Level 3.8 g/dL (3.5-5.2); Alkaline Phosphatase 165 U/L (35-105); Anion Gap 23.8 (5-19); Aspartate Amino Transferase 81 U/L (0-32); Blood Urea Nitrogen 12 mg/dL (6-20); Calcium 9.4 mg/dL (8.5-10.5); Carbon Dioxide 23 mmol/L (22-29); Chloride 94 mmol/L (98-107); Creatinine Clr Calc Pharmacy 91.7317; Globulin 3.2 g/dL (1.3-4.6); Glomerular Filtration Rate 85.6 mL/min (90-130); Glucose 136 mg/dL (65-115); Osmolality Calculated 286 mOsm/kg (285-295); Potassium 3.8 mmol/L (3.5-5.1); Sodium 137 mmol/L (136-145); Total Bilirubin 0.8 mg/dL (0.15-1.2)
== END 2024-05-19 14:25 | disposition home or self-care (01) ==
PROVIDERS: Emergency Provider Emergency Medicine; PCP Physician Assistant
DX: R55 Syncope and collapse (principal); S09.8XXA Other specified injuries of head, initial encounter; W19.XXXA Unspecified fall, initial encounter; Z79.01 Long term (current) use of anticoagulants; I10 Essential (primary) hypertension
CPT/HCPCS: 36415; 70450; 71045; 80053; 85025; 85610; 93005; 96374; 99285; J3490

== ENCOUNTER 2024-06-20 00:41 | Emergency (ER) | payer MEDICARE, SELFPAY ==
[2024-06-20 00:43] VITALS: BP 179/107; PULSE 98; RESP 18; TEMP 36.2; O2SAT 93; BMI 25.8
--- NOTE | 2024-06-20 00:54 | XRR_ITS ---
PROCEDURE INFORMATION: Exam: XR Lumbosacral Spine Exam date and time: 06/20/2024 1:54 AM Age: 58 years old Clinical indication: Injury or trauma; Fall; Blunt trauma (contusions or hematomas); Additional info: Fall, low back pain TECHNIQUE: Imaging protocol: Radiologic exam of the lumbosacral spine. Views: 2 or 3 views. COMPARISON: CR XR lumbar spine min 4V [id number] 11/15/2021 12:47 PM FINDINGS: Bones/joints: There is mild dextroscoliosis. Schmorl's nodes are again identified along the L3, L4, and L5 endplates. Otherwise there is no evidence of fracture. There is slight grade 1 anterolisthesis of L3 on L4. Otherwise alignment is maintained. Soft tissues: Unremarkable. XR/XR lumbar spine 2-3V* [id number] IMPRESSION: No acute findings.
--- NOTE | 2024-06-20 00:55 | XRR_ITS ---
PROCEDURE INFORMATION: Exam: XR Chest Exam date and time: 06/20/2024 1:53 AM Age: 58 years old Clinical indication: Pain; Other: Syncope TECHNIQUE: Imaging protocol: Radiologic exam of the chest. Views: 1 view. COMPARISON: CR XR chest 1V portable [id number] 05/19/2024 11:30 AM FINDINGS: Lungs: Unremarkable. No consolidation. Pleural spaces: Unremarkable. No pleural effusion. No pneumothorax. Heart/Mediastinum: Unremarkable. No cardiomegaly. Bones/joints: Unremarkable. XR/XR chest 1V portable [id number] IMPRESSION: No acute findings.
--- NOTE | 2024-06-20 00:55 | CTR_ITS ---
PROCEDURE INFORMATION: Exam: CT Head Without Contrast Exam date and time: 06/20/2024 1:47 AM Age: 58 years old Clinical indication: Injury or trauma; Fall; Blunt trauma (contusions or hematomas); Additional info: Syncope, fall, head trauma on eliquis history of subdural he TECHNIQUE: Imaging protocol: Computed tomography of the head without contrast. Radiation optimization: All CT scans at this facility use at least one of these dose optimization techniques: automated exposure control; mA and/or kV adjustment per patient size (includes targeted exams where dose is matched to clinical indication); or iterative reconstruction. COMPARISON: CT head wo con* [id number] 05/19/2024 12:14 PM RADIATION DOSE METRICS: Total DLP (mGy-cm): 1158.48 FINDINGS: Brain: There is no evidence of acute parenchymal hemorrhage, extra-axial collection, or acute infarction. There is no mass effect, midline shift, or downward herniation. Cerebral ventricles: No ventriculomegaly. Paranasal sinuses: Visualized sinuses are unremarkable. No fluid levels. Mastoid air cells: Visualized mastoid air cells are well aerated. Bones: Unremarkable. No acute fracture. Soft tissues: Unremarkable. CT/CT head wo con* [id number] IMPRESSION: No acute intracranial abnormality.
--- NOTE | 2024-06-20 01:19 | ECG_ITS ---
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 Measurements Intervals [place] Rate: 95 P: 76 MO: 162 QRS: 63 QRSD: 91 T: 62 QT: 333 QTc: 420 Interpretive Statements SINUS RHYTHM WITH OCCASIONAL VENTRICULAR PREMATURE COMPLEXES Compared to ECG 05/19/2024 11:23:14 Ventricular premature complex(es) now present Sinus tachycardia no longer present Electronically Signed On 06-20-2024 14:21:53 CDT by Ana Luisa Morrow M.D. [id number]
--- NOTE | 2024-06-20 01:22 | W.ED.SYNCOPE ---
HPI - Syncope General: Chief Complaint: Syncope Stated Complaint: fall Time Seen by Provider: 06/20/24 00:48 History of Present Illness: Patient arrives to the ER via EMS with syncopal episode. Patient has diagnosis of orthostatic hypotension. Patient went to stand up and grab her walker then she blacked out fell struck the back of her head and her lumbar region. Patient does take Eliquis. She has a history of subdural hematoma. Patient is on midodrine as well as furosemide. Related Data Home Medications ?Medication ?Instructions ?Recorded ?Confirmed amlodipine 10 mg tablet 10 mg PO DAILY 06/19/23 05/19/24 mupirocin 2 % topical ointment 1 applic topical PRN PRN Skin 08/03/23 05/19/24 Irritation methocarbamol 500 mg tablet 500 mg PO DAILY PRN spasm 09/18/23 05/19/24 zolpidem 5 mg tablet 5 mg PO BEDTIME PRN Insomnia 09/18/23 05/19/24 furosemide 40 mg tablet 40 mg PO DAILY PRN Edema 11/13/23 05/19/24 apixaban 5 mg tablet (Eliquis) 5 mg PO BID 03/04/24 05/19/24 cyanocobalamin (vitamin B-12) 1,000 mcg IM Q30D 03/04/24 05/19/24 1,000 mcg/mL injection solution ondansetron 4 mg disintegrating 8 mg PO Q6H PRN nausea and vomiting 05/19/24 05/19/24 tablet Previous Rx's ?Medication ?Instructions ?Recorded midodrine 5 mg tablet 5 mg PO TID #90 tabs 11/13/23 clobetasol 0.05 % topical cream 1 applic topical BID rash 2 weeks 01/31/24 #45 grams prednisone 10 mg tablet See Rx Instructions .Route 03/11/24 .COMPLEX #30 tabs levothyroxine 25 mcg tablet See Rx Instructions .Route 04/02/24 .COMPLEX #30 tabs prednisone 5 mg tablet 5 mg PO DAILY #90 tabs 05/01/24 hydroxychloroquine 200 mg tablet 200 mg PO BID #60 tabs 06/19/24 ciprofloxacin HCl 500 mg tablet 500 mg PO Q12H #20 tabs 06/20/24 Allergies Allergy/AdvReac Type Severity Reaction Status Date / Time Alpha-Gal Allergy Severe ALGY-Swell Verified 06/20/24 00:49 ([id number],3-Gala Lip/Tongue/Throat clarithromycin (From Biaxin) Allergy ADR-Nausea Verified 06/20/24 00:49 Review of Systems General: Reports: 10 or more systems reviewed and unremarkable except in HPI and below PFSH ED PFSH: Medical History Peripheral neuropathy 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 Hypothyroidism Exertional shortness of breath Immunization counseling High risk medication use Positive sm/OUTPLACEMENT CONSULTANT antibody Positive ANDREW (antinuclear antibody) Inflammatory arthritis Gout Hypertension Surgical History History of left hip replacement History of foot surgery (2015) Plantar fasciitis History of surgical removal of pilonidal cyst (1999) History of carpal tunnel release (1999) History of bunionectomy of left great toe (2018) History of bunionectomy of right great toe (01/24/23) History of esophagogastroduodenoscopy (EGD) (03/29/23) [facility] 8 years History of ventral hernia repair (05/08/22) Social History Smoking and tobacco/nicotine status: never used tobacco/nicotine Alcohol intake: current Physical Exam Const: COMMON NORMALS: no acute distress, average body habitus, patient oriented x3, no limitations, healthy appearing, alert and well nourished HENMT: COMMON NORMALS: normocephalic, atraumatic, hearing grossly normal bilaterally, external ears normal, Normal external nose present, moist oral mucous membranes and oropharynx normal HEAD & SCALP: normocephalic and atraumatic NOSE: Normal external nose present EXTERNAL EAR: Yes external ears normal Eye: COMMON NORMALS: Equal, round and reactive pupils present, EOMs intact bilaterally, conjunctivae normal and no scleral icterus CONJUNCTIVA: Yes conjunctivae normal PUPIL: Yes Equal, round and reactive pupils present Neck/C-Spine: COMMON NORMALS: full ROM, no lymphadenopathy, supple, no meningeal signs and no JVD Chest: COMMONS NORMALS: normal inspection of the chest and normal palpation of entire chest wall Resp: COMMON NORMALS: normal respiratory effort, No retractions, No use of accessory muscles and clear to auscultation bilaterally AUSCULTATION: clear to auscultation bilaterally Cardio: COMMON NORMALS: no JVD, regular rate, regular rhythm, S1 normal heart sound present, S2 normal heart sound present, No gallops present (Cardio), No clicks present (Cardio), No murmurs present (Cardio) and No rub (Cardio) RATE: regular rate RHYTHM: regular rhythm HEART SOUNDS: S1 normal heart sound present and S2 normal heart sound present GI: COMMON NORMALS: Normal to inspection, nondistended, normoactive bowel sounds present, Soft to palpation, non-tender, No hepatosplenomegaly present and no masses PALPATION: Yes Soft to palpation and Yes No hepatosplenomegaly present Back/Pelvis: OTHER: Minimal bilateral lumbar paraspinal muscular sure tenderness. No obvious vertebral tenderness step-off deformity crepitus. Neuro: COMMON NORMALS: patient oriented x3 SENSORIUM/ORIENTATION: Yes alert MENINGEAL SIGNS: Yes no meningeal signs Course Vital Signs: Vital signs: Vital Signs Temperature 97.1 F L 06/20/24 00:43 Pulse Rate 98 06/20/24 04:01 Respiratory Rate 18 06/20/24 04:01 Blood Pressure 131/85 06/20/24 04:01 Pulse Oximetry 96 06/20/24 04:01 Oxygen Delivery Me thod Room Air 06/20/24 02:11 MDM - Syncope Medical Decision Making Lab work reviewed as well as lumbar spine, chest, x-ray, head CT, all benign except urinalysis that shows 51-100 white blood cells, patient be given Cipro and discharged home with prescription for Cipro. Medical Records I reviewed the patient's medical records. Lab Data I reviewed the patient's lab results. 06/20/24 01:20 06/20/24 02:33 Radiology Impressions Lumbar Spine X-Ray 06/20/24 00:54 IMPRESSION: No acute findings. Chest X-Ray 06/20/24 00:55 IMPRESSION: No acute findings. Head CT 06/20/24 00:55 IMPRESSION: No acute intracranial abnormality. Laboratory Results WBC 4.92 10^3/uL (3.29-11.43) 06/20/24 01:20 RBC 3.43 10^6/uL (3.85-5.65) L 06/20/24 01:20 Hgb 11.80 g/dL (11.27-16.99) 06/20/24 01:20 Hct 36.8 % (36-47) 06/20/24 01:20 MCV 107.3 fl (85-98) H 06/20/24 01:20 MCH 34.4 pg (27-33) H 06/20/24 01:20 MCHC 32.1 g/dL (30-55) 06/20/24 01:20 RDW 14.5 % (12.1-15.1) 06/20/24 01:20 Plt Count 153 10^3/cmm (157-399) L 06/20/24 01:20 MPV 10.6 fL (7.4-10.4) H 06/20/24 01:20 Neut % (Auto) 52.7 % 06/20/24 01:20 Lymph % (Auto) 38.0 % 06/20/24 01:20 [place] % (Auto) 8.7 % 06/20/24 01:20 Eos % (Auto) 0.2 % 06/20/24 01:20 Baso % (Auto) 0.2 % 06/20/24 01:20 Neut # (Auto) 2.59 10^3/uL (1.8-7.7) 06/20/24 01:20 Lymph # (Auto) 1.9 10^3/uL (0.8-4.8) 06/20/24 01:20 [place] # (Auto) 0.4 10^3/uL (0.2-0.9) 06/20/24 01:20 Eos # (Auto) 0.0 10^3/uL (0.0-0.8) 06/20/24 01:20 Baso # (Auto) 0.0 10^3/uL (0.0-0.1) 06/20/24 01:20 Nucleated RBC % (auto) 0 % 06/20/24 01:20 Nucleated RBCs # 0.0 /100WBC 06/20/24 01:20 Sodium 145 mmol/L (136-145) 06/20/24 02:33 Potassium 4.3 mmol/L (3.5-5.1) 06/20/24 02:33 Chloride 106 mmol/L (98-107) 06/20/24 02:33 Carbon Dioxide 20 mmol/L (22-29) L 06/20/24 02:33 Anion Gap 23.3 (5-19) H 06/20/24 02:33 BUN 10 mg/dL (6-20) 06/20/24 02:33 Creatinine 0.5 mg/dL (0.5-0.9) 06/20/24 02:33 GFR Calculation 126.3 mL/min (90-130) 06/20/24 02:33 Glucose 85 mg/dL (65-115) 06/20/24 02:33 Calculated Osmolality 298 mOsm/kg (285-295) H 06/20/24 02:33 Calcium 8.5 mg/dL (8.5-10.5) 06/20/24 02:33 Total Bilirubin 0.5 mg/dL (0.15-1.2) 06/20/24 02:33 AST 26 U/L (0-32) 06/20/24 02:33 ALT 13 U/L (0-33) 06/20/24 02:33 Alkaline Phosphatase 113 U/L (35-105) H 06/20/24 02:33 Troponin T Baseline 18 ng/L (0-10) H 06/20/24 01:20 Troponin T 120 Minute 18.27 ng/L (0-10) H 06/20/24 03:54 Delta Troponin T 0.27 ABS# (0-10) 06/20/24 03:54 Total Protein 6.1 g/dL (6.6-8.7) L 06/20/24 02:33 Albumin 3.5 g/dL (3.5-5.2) 06/20/24 02:33 Globulin 2.6 g/dL (1.3-4.6) 06/20/24 02:33 Urine Color Yellow (Yellow) 06/20/24 01:40 Urine Appearance Clear (CLEAR) 06/20/24 01:40 Urine pH 6.0 (5-7) 06/20/24 01:40 Ur Specific [place] 1.007 (1.005-1.030) 06/20/24 01:40 Urine Protein Trace (Negative) A 06/20/24 01:40 Urine Glucose (UA) Negative (Normal) 06/20/24 01:40 Urine Ketones Negative (Negative) 06/20/24 01:40 Urine Blood Negative (Negative) 06/20/24 01:40 Urine Nitrate Negative (Negative) 06/20/24 01:40 Urine Bilirubin Negative (Negative) 06/20/24 01:40 Urine Urobilinogen 0.2 mg/dL (Negative) 06/20/24 01:40 Ur Leukocyte Esterase 2+ (Negative) A 06/20/24 01:40 Urine RBC 0-2 /hpf (0-2) 06/20/24 01:40 Urine WBC 51-100 /hpf (0-5) H 06/20/24 01:40 Ur Squamous Epith Cells 0-5 /hpf (0-5) 06/20/24 01:40 Amorphous Sediment Not Reportable 06/20/24 01:40 Urine Bacteria None seen /hpf (NONE) 06/20/24 01:40 Hyaline Casts 1.65 /lpf 06/20/24 01:40 All radiology interpretation(s) finalized by discharge Discharge Plan Discharge Patient Disposition: Home Clinical Impression: Syncope due to orthostatic hypotension Urinary tract infection Qualifiers: Urinary tract infection type: acute cystitis Hematuria presence: without hematuria Qualified Code(s): N30.00 - Acute cystitis without hematuria Condition: Stable Prescriptions: New ciprofloxacin HCl 500 mg tablet 500 mg PO Q12H Qty: 20 0RF No Action furosemide 40 mg tablet 40 mg PO DAILY PRN (Reason: Edema) midodrine 5 mg tablet 5 mg PO TID Qty: 90 3RF Rx Instructions: do not give last dose of day after 6PM or within 4 hrs of bedtime zolpidem 5 mg tablet 5 mg PO BEDTIME PRN (Reason: Insomnia) methocarbamol 500 mg tablet 500 mg PO DAILY PRN (Reason: spasm ) Patient Comments: at nighttime clobetasol 0.05 % cream 1 applic topical BID 14 Days Qty: 45 1RF prednisone 10 mg tablet See Rx Instructions .ROUTE .COMPLEX Qty: 30 1RF Dose Instruction: TAKE 1 TO 2 TABLETS BY MOUTH DAILY FOR 3 TO 7 DAYS NEEDED FOR JOINT PAIN OR FLARE Rx Instructions: TAKE 1 TO 2 TABLETS BY MOUTH DAILY FOR 3 TO 7 DAYS NEEDED FOR JOINT PAIN OR FLARE levothyroxine 25 mcg tablet See Rx Instructions .ROUTE .COMPLEX Qty: 30 0RF Dose Instruction: TAKE 1 TABLET BY MOUTH DAILY SUNDAY THRU SUNDAY, THEN 2 TABLETS BY MOUTH ON SUNDAY Rx Instructions: TAKE 1 TABLET BY MOUTH DAILY SUNDAY THRU SUNDAY, THEN 2 TABLETS BY MOUTH ON SUNDAY prednisone 5 mg tablet 5 mg PO DAILY Qty: 90 1RF hydroxychloroquine 200 mg tablet 200 mg PO BID Qty: 60 2RF amlodipine 10 mg tablet 10 mg PO DAILY mupirocin 2 % ointment 1 applic TOPICAL PRN PRN (Reason: Skin Irritation) Eliquis 5 mg tablet 5 mg PO BID cyanocobalamin (vitamin B-12) 1,000 mcg/mL solution 1,000 mcg IM Q30D ondansetron 4 mg tablet,disintegrating 8 mg PO Q6H PRN (Reason: nausea and vomiting) Discharge Orders: Discharge ED (Routine); Ordered 06/20/24 Ordered By: Luis M Albright Referrals: Randee Klein PA [Primary Care Provider] - 1 week Patient Instructions: Syncope (ED), Urinary Tract Infection in Women (DC) Activity Restrictions/Additional Instructions: Activity restrictions/additional instructions: Thank you for choosing [facility] for your healthcare needs today. Please realize that you were seen in the emergency department and that we are providing you with an emergency medical screening exam and this may not be a complete and all exclusive of all testing and/or medical workup we may need to determine your element or severity of your illness. It is very important that you follow-up as instructed with your primary care provider or specialist for the additional evaluation and to discuss your medical treatment plan. You may return to the emergency department should you have concerns or if your condition changes or worsens in any way. Print Language: Turkmen Coding Level of Care Code ED Industrial Roofer for Jania Craig
[2024-06-20 01:28] LABS: Basophils % 0.2 %; Eosinophils % 0.2 %; Hematocrit 36.8 % (36-47); Lymphocytes # 1.9 10^3/uL (0.8-4.8); Mean Corpuscular HGB Conc 32.1 g/dL (30-55); Mean Corpuscular Hemoglobin 34.4 pg (27-33); Mean Corpuscular Volume 107.3 fl (85-98); Mean Platelet Volume 10.6 fL (7.4-10.4); Monocytes # 0.4 10^3/uL (0.2-0.9); Monocytes % 8.7 %; Neutrophils # 2.59 10^3/uL (1.8-7.7); Neutrophils % 52.7 %; Nucleated Red Blood Cells % 0 %; Platelet Count 153 10^3/cmm (157-399); Red Blood Count 3.43 10^6/uL (3.85-5.65); Red Cell Distribution Width 14.5 % (12.1-15.1); White Blood Count 4.92 10^3/uL (3.29-11.43)
[2024-06-20 01:51] LABS: Troponin(5th) Baseline 18 ng/L (0-10)
[2024-06-20 02:00] LABS: Bilirubin Urine Negative (Negative); Blood Urine Negative (Negative); Glucose Urine UA Negative (Normal); Ketones Urine Negative (Negative); Leukocyte Esterase Urine 2+ (Negative); Nitrate Urine Negative (Negative); Protein Urine Trace (Negative); Specific Gravity, Urine 1.007 (1.005-1.030); Urine Appearance Clear (CLEAR); Urine Color Yellow (Yellow); Urobilinogen Urine 0.2 mg/dL (Negative)
[2024-06-20 02:05] LABS: Add Urine Microscopic? YES; Bacteria Urine None Seen /hpf; Hyaline Casts Urine 1.65 /lpf; RBC Urine 0-2 /hpf (0-2); Squamous Epithelial Cell Urine 0-5 /hpf (0-5); WBC Urine 51-100 /hpf (0-5)
[2024-06-20 02:11] VITALS: BP 181/116; PULSE 98; RESP 18; O2SAT 99
[2024-06-20 02:13] LABS: Add Urine Culture? Yes
[2024-06-20 02:19] VITALS: BP 127/95; BP 148/100; BP 152/102
--- NOTE | 2024-06-20 02:33 | ECG_ITS ---
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 Measurements Intervals [place] Rate: 96 P: 79 TX: 148 QRS: 65 QRSD: 93 T: 66 QT: 342 QTc: 433 Interpretive Statements SINUS RHYTHM Compared to ECG 06/20/2024 01:19:51 Ventricular premature complex(es) no longer present Electronically Signed On 06-20-2024 14:26:16 CDT by Ana Luisa Morrow M.D. [email or web address]
[2024-06-20 02:59] LABS: Alanine Aminotransferase 13 U/L (0-33); Albumin Level 3.5 g/dL (3.5-5.2); Alkaline Phosphatase 113 U/L (35-105); Anion Gap 23.3 (5-19); Aspartate Amino Transferase 26 U/L (0-32); Blood Urea Nitrogen 10 mg/dL (6-20); Calcium 8.5 mg/dL (8.5-10.5); Carbon Dioxide 20 mmol/L (22-29); Chloride 106 mmol/L (98-107); Globulin 2.6 g/dL (1.3-4.6); Glomerular Filtration Rate 126.3 mL/min (90-130); Glucose 85 mg/dL (65-115); Osmolality Calculated 298 mOsm/kg (285-295); Potassium 4.3 mmol/L (3.5-5.1); Sodium 145 mmol/L (136-145); Total Bilirubin 0.5 mg/dL (0.15-1.2); Total Protein 6.1 g/dL (6.6-8.7)
[2024-06-20 03:50] VITALS: BP 131/85; PULSE 100; RESP 18; O2SAT 92
[2024-06-20 04:01] VITALS: BP 131/85; PULSE 98; RESP 18; O2SAT 96
[2024-06-20 04:23] LABS: Troponin 5 2HR 18.27 ng/L (0-10); Troponin 5 2HR Delta 0.27 ABS# (0-10)
[2024-06-20 04:55] VITALS: BP 163/106; PULSE 100; RESP 18; O2SAT 97
[2024-06-20] MEDS: ciprofloxacin 500 mg Tablet PO (04:58)
== END 2024-06-20 05:11 | disposition home or self-care (01) ==
PROVIDERS: Emergency Provider Emergency Medicine; PCP Physician Assistant
DX: I95.1 Orthostatic hypotension (principal); N30.00 Acute cystitis without hematuria; Z79.01 Long term (current) use of anticoagulants; I10 Essential (primary) hypertension
CPT/HCPCS: 36415; 70450; 71045; 72100; 80053; 81001; 84484; 85025; 87086; 93005; 99285; J9999

== ENCOUNTER 2024-08-07 13:46 | Outpatient (CLI) | payer MEDICARE, SELFPAY ==
[2024-08-07 15:27] LABS: Basophils % 0.2 %; Eosinophils % 0.2 %; Lymphocytes # 0.8 10^3/uL (0.8-4.8); Lymphocytes % 13.2 %; Mean Corpuscular HGB Conc 31.3 g/dL (30-55); Mean Corpuscular Hemoglobin 34.4 pg (27-33); Mean Corpuscular Volume 109.9 fl (85-98); Mean Platelet Volume 11.1 fL (7.4-10.4); Monocytes # 0.2 10^3/uL (0.2-0.9); Monocytes % 3.1 %; Neutrophils # 4.87 10^3/uL (1.8-7.7); Neutrophils % 83.1 %; Nucleated Red Blood Cells % 0 %; Platelet Count 258 10^3/cmm (157-399); Red Blood Count 3.55 10^6/uL (3.85-5.65); Red Cell Distribution Width 14.3 % (12.1-15.1); White Blood Count 5.85 10^3/uL (3.29-11.43)
[2024-08-07 15:28] LABS: Erythrocyte Sedimentation Rate 34 mm/hr (0-15)
[2024-08-07 15:55] LABS: Alanine Aminotransferase 15 U/L (0-33); Albumin Level 3.7 g/dL (3.5-5.2); Alkaline Phosphatase 135 U/L (35-105); Aspartate Amino Transferase 39 U/L (0-32); Blood Urea Nitrogen 8 mg/dL (8-23); C Reactive Protein 6.9 mg/L (0.0-4.9); Calcium 9.4 mg/dL (8.5-10.5); Carbon Dioxide 23 mmol/L (22-29); Chloride 100 mmol/L (98-107); Globulin 3.2 g/dL (1.3-4.6); Glomerular Filtration Rate 85.4 mL/min (90-130); Glucose 100 mg/dL (65-115); Immunoglobulin IGA 207 mg/dL (70-400); Immunoglobulin IGG 699 mg/dL (700-1600); Immunoglobulin IGM 91 mg/dL (40-230); Osmolality Calculated 282 mOsm/kg (285-295); Sodium 137 mmol/L (136-145); Total Bilirubin 0.8 mg/dL (0.15-1.2); Total Protein 6.9 g/dL (6.6-8.7)
[2024-08-07 15:56] LABS: Anion Gap 18.3 (5-19); Potassium 4.3 mmol/L (3.5-5.1)
[2024-08-07 16:11] LABS: 25 Hydroxy Vitamin D 37 ng/mL (30-100); Vitamin B12 1304 pg/mL (232-1245)
[2024-08-07 16:57] LABS: Folate Level > 20.0 ng/mL (4.8-37.3)
[2024-08-07 22:08] LABS: Free T4 Free Thyroxine 1.28 ng/dL (0.82-1.77)
== END 2024-08-07 13:47 | disposition home or self-care (01) ==
PROVIDERS: Internal Medicine; Internal Medicine Rheumatology; PCP Physician Assistant; Visit Provider Internal Medicine Medical Oncology
DX: M32.9 Systemic lupus erythematosus, unspecified (principal); D47.2 Monoclonal gammopathy; Z79.899 Other long term (current) drug therapy; I10 Essential (primary) hypertension; E53.8 Deficiency of other specified B group vitamins; N18.32 Chronic kidney disease, stage 3b
CPT/HCPCS: 36415; 80053; 82248; 82306; 82607; 82746; 82784; 83883; 84155; 84165; 84439; 85025; 85651; 86140; 86334

== ENCOUNTER → 2024-08-13 11:38 | Outpatient (BNVA) | payer MEDICARE, SELFPAY | PROVIDERS: PCP Physician Assistant; Visit Provider Internal Medicine | DX: R00.0 Tachycardia, unspecified (principal); R06.02 Shortness of breath; R00.2 Palpitations; I10 Essential (primary) hypertension; Z79.01 Long term (current) use of anticoagulants | CPT/HCPCS: 81001; 82570; 84156; 99204; 99215 ==

== ENCOUNTER → 2024-08-20 12:38 | Outpatient (BNVA) | payer MEDICARE, SELFPAY | PROVIDERS: PCP Physician Assistant; Visit Provider Specialist | DX: G63 Polyneuropathy in diseases classified elsewhere (principal); M79.7 Fibromyalgia; G93.32 Myalgic encephalomyelitis/chronic fatigue syndrome | CPT/HCPCS: 99215 ==

== ENCOUNTER 2024-08-22 09:11 | Emergency (ER) | payer MEDICARE, SELFPAY ==
[2024-08-22 09:11] VITALS: BP 148/101; PULSE 103; RESP 17; TEMP 36.7; O2SAT 100; BMI 26.9
--- NOTE | 2024-08-22 09:22 | XR_ITS ---
WS: [id number] Portable AP upright chest, 08/22/2024 Clinical Data: dizziness Comparison: Portable chest, 06/20/2024 Findings: No nodules, masses or effusions are seen. The heart is normal. The pulmonary vascularity is not increased. No pneumonia or pneumothorax is seen. There is a recording device overlying the mediastinum. The aortic arch and descending thoracic aorta show tortuosity. XR/XR chest 1V portable [id number] Impression: Atherosclerosis.
--- NOTE | 2024-08-22 09:22 | ECG_ITS ---
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
--- NOTE | 2024-08-22 09:43 | W.ED.DIZZY ---
HPI - Dizziness General: Chief Complaint: Dizziness Stated Complaint: dizziness Time Seen by Provider: 08/22/24 09:13 Source: patient Mode of arrival: wheelchair Limitations: no limitations History of Present Illness: HPI Narrative: Patient is a 59-year-old female presents to ED today with a complaint of dizziness as well as right hip pain. She is also having issues with constipation. She states it feels like I am falling apart . She states dizziness began around 8 PM yesterday evening while at rest. She states she has had dizziness before and it would normally alleviate if she can relax and bring down my heart rate and blood pressure but she has not apparently been able to do this. She reports her blood pressure is elevated upon arrival at 148/101. She did take her blood pressure medication this morning. She states she has a longstanding history of orthostatic hypotension and tachycardia which causes syncopal episodes. She also has history of demyelinating polyneuropathy. States she recently saw Dr. Esquivel and they are thinking that she might also have myalgic encephalomyelitis/chronic fatigue syndrome. She is not having any acute neurologic deficits upon arrival. She states she has not been drinking enough water which is causing her to feel constipated. She states she has been under increased stress recently stating she is planning on moving to an independent living facility from her current RV-this is scheduled for next week. She states her right hip pain is chronic and has recently underwent MRI imaging of it and has been told that she needs a hip replacement-thinks surgeon is wanting to do this next month sometime. She states her left hip was replaced last year. She has a history of palpitations and heart pains and is currently wearing a Holter monitor ordered by Dr. El. elicited complaint: dizziness and other (R hip pain) Onset (ago): day(s) (yesterday evening) Severity: mild History of similar symptoms: Yes Exacerbating factors: movement/ambulation and change in body position Relieving factors: remaining still and rest Associated symptoms: Reports no associated symptoms, palpitations (chronic-wearing Holter monitor) and syncope (hx of orthostatic hypotension); Denies change in hearing, chest pain, chills, ear discharge, headache(s), malaise, nausea, nasal congestion, tinnitus or vomiting Associated neuro symptoms: Reports no associated symptoms and numbness in extremities (chronic neuropathy); Deny confusion Stroke scale total: 0 Related Data Home Medications ?Medication ?Instructions ?Recorded ?Confirmed amlodipine 10 mg tablet 5 mg PO DAILY 06/19/23 08/22/24 mupirocin 2 % topical ointment 1 applic topical PRN PRN Skin 08/03/23 08/22/24 Irritation furosemide 40 mg tablet 40 mg PO DAILY PRN Edema 11/13/23 08/22/24 apixaban 5 mg tablet (Eliquis) 5 mg PO BID 03/04/24 08/22/24 cyanocobalamin (vitamin B-12) 1,000 mcg IM Q30D 03/04/24 08/22/24 1,000 mcg/mL injection solution clobetasol 0.05 % topical cream 1 applic topical BID PRN rash 08/22/24 08/22/24 hydroxychloroquine 200 mg tablet 200 mg PO BID 08/22/24 08/22/24 pantoprazole 40 mg tablet,delayed 40 mg PO BID 08/22/24 08/22/24 release potassium chloride 10 mEq 10 meq PO DAILY PRN while on lasix 08/22/24 08/22/24 tablet,extended release (Klor-Con) prednisone 5 mg tablet 5 mg PO DAILY 08/22/24 08/22/24 Previous Rx's ?Medication ?Instructions ?Recorded levothyroxine 25 mcg tablet See Rx Instructions .Route 08/13/24 .COMPLEX #30 tabs prednisone 10 mg tablet 10 mg PO DAILY #90 tabs 08/13/24 prednisone 20 mg tablet See Rx Instructions PO .COMPLEX 08/13/24 PRN joint pain flare #60 tabs pregabalin 165 mg tablet, extended 165 mg PO DAILY #30 tabs 08/13/24 release 24 hr hydrocodone 5 mg-acetaminophen 325 0.5 tab PO Q6H PRN pain #12 tabs 08/22/24 mg tablet Allergies Allergy/AdvReac Type Severity Reaction Status Date / Time Alpha-Gal Allergy Severe ALGY-Swell Verified 08/20/24 12:41 (Suxgejrni-Vwrfx-0,3-Gala Lip/Tongue/Throat clarithromycin (From Biaxin) Allergy ADR-Nausea Verified 08/20/24 12:41 Review of Systems Const: Reports: fatigue (chronic); Denies: fever(s), chills, body aches or malaise Eyes: Denies: change in vision, blurry vision, photophobia, floaters or seeing flashes ENMT: Denies: throat pain, odynophagia, ear or mastoid pain, ear discharge, change in hearing, tinnitus, nasal discharge, nasal congestion or sinus pain Card: Reports: palpitations (chronic-wearing Holter monitor), irregular heart rhythm (wearing Holter monitor) and syncope (hx of orthostatic hypotension); Denies: chest pain, edema, swelling of feet/ankles, dyspnea on exertion or orthopnea Resp: Denies: dyspnea, productive cough or non-productive cough GI: Reports: constipation; Denies: abdominal pain, nausea or vomiting : Denies: flank pain, dysuria or hematuria Musc: Reports: extremity pain (chronic LE neuropathy) and joint pain (R hip); Denies: neck pain, back pain, extremity swelling, joint swelling, joint redness or joint warmth Skin/Breast: Denies: rash Neuro: Reports: numbness in extremities (chronic neuropathy) and dizziness; Denies: headache(s), weakness in extremities, confusion, behavioral changes, Slurred speech present, difficulty communicating thoughts or seizure-like activity PFS ED PFSH: Medical History Peripheral neuropathy 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 Hypothyroidism Exertional shortness of breath Immunization counseling High risk medication use Positive sm/COIL TIER antibody Positive ANDREW (antinuclear antibody) Inflammatory arthritis Gout Hypertension Surgical History History of left hip replacement History of foot surgery (2015) Plantar fasciitis History of surgical removal of pilonidal cyst (1999) History of carpal tunnel release (1999) History of bunionectomy of left great toe (2018) History of bunionectomy of right great toe (01/24/23) History of esophagogastroduodenoscopy (EGD) (03/29/23) [facility] 8 years History of ventral hernia repair (05/08/22) Social History Smoking and tobacco/nicotine status: never used tobacco/nicotine Alcohol intake: current Physical Exam Const: COMMON NORMALS: no acute distress, average body habitus, patient oriented x3, no limitations, healthy appearing, alert and well nourished GENERAL APPEARANCE: cooperative ORIENTATION/CONSCIOUSNESS: Yes awake, Yes oriented to person, Yes oriented to place and Yes oriented to time HENMT: COMMON NORMALS: normocephalic, atraumatic, external ears normal, EAC's normal and TM's normal bilaterally HEAD & SCALP: normal to inspection, normocephalic and atraumatic FACE & SINUS: normal facial exam and face symmetric GENERAL EAR: hearing grossly impaired EXTERNAL EAR: Yes external ears normal, Yes mastoids normal and Yes no periauricular adenopathy EXTERNAL AUDITORY CANAL: EAC's normal TYMPANIC MEMBRANE: TM's normal bilaterally Eye: COMMON NORMALS: Equal, round and reactive pupils present, EOMs intact bilaterally and conjunctivae normal GENERAL EYE: appearance normal, both eyes and all related structures and normal light reflex CONJUNCTIVA: Yes conjunctivae normal PUPIL: Yes Equal, round and reactive pupils present DIRECT OPHTHALMOSCOPY: Yes normal light reflex OTHER: no nystagmus appreciated, absent skew Neck/C-Spine: COMMON NORMALS: full ROM, no lymphadenopathy and no meningeal signs GENERAL: Yes normal visual inspection Resp: COMMON NORMALS: normal respiratory effort and clear to auscultation bilaterally AUSCULTATION: clear to auscultation bilaterally Cardio: COMMON NORMALS: regular rate and regular rhythm RATE: regular rate RHYTHM: regular rhythm GI: COMMON NORMALS: Normal to inspection, nondistended, normoactive bowel sounds present, Soft to palpation and non-tender PALPATION: Yes Soft to palpation Back/Pelvis: COMMON NORMALS: thoracic and lumbar spine normal to inspection and no thoracic nor lumbar tenderness Extremity: COMMON NORMALS: capillary refill normal, no clubbing, cyanosis or edema, no calf tenderness and no pedal edema GENERAL: Yes normal exam except as noted RIGHT LOWER EXTREMITY: Yes hip joint (pain with ROM) Right hip: Yes neurovascular exam (normal) OTHER: tenderness throughout LE that she states is from fibromyalgia and chronic neuropathy Neuro: JEAN COMA SCALE: document GCS findings Jean coma scale eye opening: Spontaneous Jean coma scale verbal response: Orientated Jean coma scale motor response: Obey commands Jean coma scale total score: 15 COMMON NORMALS: patient oriented x3, moves all extremities and no focal motor deficits SENSORIUM/ORIENTATION: Yes alert, Yes oriented to person, Yes oriented to place and Yes oriented to time MENINGEAL SIGNS: Yes no meningeal signs COORDINATION/BALANCE: [id number] test normal SPEECH: speech normal COORDINATION: [id number] test normal Course Vital Signs: Vital signs: Vital Signs Temperature 98.1 F 08/22/24 09:11 Pulse Rate 99 08/22/24 10:45 Respiratory Rate 17 08/22/24 09:11 Blood Pressure 156/101 08/22/24 10:45 Pulse Oximetry 99 08/22/24 10:45 Oxygen Delivery Me thod Room Air 08/22/24 10:45 MDM - Dizziness Medical Decision Making Patient clinically does not have any signs/symptoms of a central etiology for her dizziness. She was ambulatory here with the help of her walker just fine. She does not complain of nausea/vomiting. She has had issues with dizziness previously. Vitals have been stable-hypertension. States her blood pressure is always high-even when she checks it at home. Blood work overall is non-actionable. CXR and UA without evidence for infection. CT head unremarkable. At time of discharge she really only wants something for her right hip pain. States she is taking prednisone, robaxin, and naproxen but this is not helping her pain. She has not had any new injury or trauma to the hip thus imaging was not obtained today as she expressed she has recently underwent MRI imaging. We spoke about how due to her dizziness and already increased risk of falls, we need to be careful using pain medication. I had originally suggested something like Tylenol 3 or even Tramadol. She does not feel like these are going to be able to control her pain. She is asking if we can try hydrocodone. Recommend she start with a half a tablet to see how this affects her. We spoke extensively about her doing the rule of 5s with her known orthostatic hypotension. Medical Records I reviewed the patient's medical records. Lab Data I reviewed the patient's lab results. 08/22/24 09:54 08/22/24 09:54 Radiology Impressions Chest X-Ray 08/22/24 09:22 Impression: Atherosclerosis. Head CT 08/22/24 10:08 Impression: Negative CT scan of the head Laboratory Results WBC 6.79 10^3/uL (3.29-11.43) 08/22/24 09:54 RBC 3.75 10^6/uL (3.85-5.65) L 08/22/24 09:54 Hgb 12.90 g/dL (11.27-16.99) 08/22/24 09:54 Hct 38.1 % (36-47) 08/22/24 09:54 MCV 101.6 fl (85-98) H 08/22/24 09:54 MCH 34.4 pg (27-33) H 08/22/24 09:54 MCHC 33.9 g/dL (30-55) 08/22/24 09:54 RDW 13.3 % (12.1-15.1) 08/22/24 09:54 Plt Count 146 10^3/cmm (157-399) L 08/22/24 09:54 MPV 10.7 fL (7.4-10.4) H 08/22/24 09:54 Neut % (Auto) 92.3 % 08/22/24 09:54 Lymph % (Auto) 5.0 % 08/22/24 09:54 [place] % (Auto) 2.2 % 08/22/24 09:54 Eos % (Auto) 0.0 % 08/22/24 09:54 Baso % (Auto) 0.1 % 08/22/24 09:54 Neut # (Auto) 6.26 10^3/uL (1.8-7.7) 08/22/24 09:54 Lymph # (Auto) 0.3 10^3/uL (0.8-4.8) L 08/22/24 09:54 [place] # (Auto) 0.2 10^3/uL (0.2-0.9) 08/22/24 09:54 Eos # (Auto) 0.0 10^3/uL (0.0-0.8) 08/22/24 09:54 Baso # (Auto) 0.0 10^3/uL (0.0-0.1) 08/22/24 09:54 Nucleated RBC % (auto) 0 % 08/22/24 09:54 Nucleated RBCs # 0.0 /100WBC 08/22/24 09:54 Sodium 131 mmol/L (136-145) L 08/22/24 09:54 Potassium 3.8 mmol/L (3.5-5.1) 08/22/24 09:54 Chloride 84 mmol/L (98-107) L 08/22/24 09:54 Carbon Dioxide 31 mmol/L (22-29) H 08/22/24 09:54 Anion Gap 19.8 (5-19) H 08/22/24 09:54 BUN 22 mg/dL (8-23) 08/22/24 09:54 Creatinine 0.8 mg/dL (0.5-0.9) 08/22/24 09:54 GFR Calculation 73.2 mL/min (90-130) L 08/22/24 09:54 Glucose 139 mg/dL (65-115) H 08/22/24 09:54 Calculated Osmolality 278 mOsm/kg (285-295) L 08/22/24 09:54 Calcium 8.8 mg/dL (8.5-10.5) 08/22/24 09:54 Total Bilirubin 1.4 mg/dL (0.15-1.2) H 08/22/24 09:54 AST 28 U/L (0-32) 08/22/24 09:54 ALT 10 U/L (0-33) 08/22/24 09:54 Alkaline Phosphatase 119 U/L (35-105) H 08/22/24 09:54 NT-Pro-B Natriuret Pep 373 pg/mL (0-125) H 08/22/24 09:54 Total Protein 6.6 g/dL (6.6-8.7) 08/22/24 09:54 Albumin 3.8 g/dL (3.5-5.2) 08/22/24 09:54 Globulin 2.8 g/dL (1.3-4.6) 08/22/24 09:54 Urine Color [place] (Yellow) A 08/22/24 11:28 Urine Appearance Clear (CLEAR) 08/22/24 11:28 Urine pH 6.5 (5-7) 08/22/24 11:28 Ur Specific [place] 1.020 (1.005-1.030) 08/22/24 11:28 Urine Protein 1+ (Negative) A 08/22/24 11:28 Urine Glucose (UA) Negative (Normal) 08/22/24 11:28 Urine Ketones Trace (Negative) 08/22/24 11:28 Urine Blood Negative (Negative) 08/22/24 11:28 Urine Nitrate Negative (Negative) 08/22/24 11:28 Urine Bilirubin 1+ (Negative) H 08/22/24 11:28 Urine Urobilinogen 1.0 mg/dL (Negative) 08/22/24 11:28 Ur Leukocyte Esterase 1+ (Negative) A 08/22/24 11:28 Urine RBC 0-2 /hpf (0-2) 08/22/24 11:28 Urine WBC 0-5 /hpf (0-5) 08/22/24 11:28 Ur Squamous Epith Cells 0-5 /hpf (0-5) 08/22/24 11:28 Amorphous Sediment Not Reportable 08/22/24 11:28 Urine Bacteria None seen /hpf (NONE) 08/22/24 11:28 Hyaline Casts 1.65 /lpf 08/22/24 11:28 All radiology interpretation(s) finalized by discharge Discharge Plan Discharge Patient Disposition: Home Clinical Impression: Chronic pain of right hip, Dizziness Constipation Qualifiers: Constipation type: unspecified constipation type Qualified Code(s): K59.00 - Constipation, unspecified Condition: Stable Prescriptions: New hydrocodone-acetaminophen 5-325 mg tablet 0.5 tab PO Q6H PRN (Reason: pain) Qty: 12 0RF No Action furosemide 40 mg tablet 40 mg PO DAILY PRN (Reason: Edema) levothyroxine 25 mcg tablet See Rx Instructions .ROUTE .COMPLEX Qty: 30 0RF Dose Instruction: TAKE 1 TABLET BY MOUTH DAILY SUNDAY THRU SUNDAY, THEN 2 TABLETS BY MOUTH ON SUNDAY Rx Instructions: TAKE 1 TABLET BY MOUTH DAILY SUNDAY THRU SUNDAY, THEN 2 TABLETS BY MOUTH ON SUNDAY prednisone 20 mg tablet See Rx Instructions PO .COMPLEX PRN (Reason: joint pain flare) Qty: 60 0RF Rx Instructions: Take 1 or 2 tablets by mouth daily for up to 7 days as needed for arthritis flare. pregabalin 165 mg tablet extended release 24 hr 165 mg PO DAILY Qty: 30 5RF Rx Instructions: must administer with a meal/food prednisone 10 mg tablet 10 mg PO DAILY Qty: 90 1RF amlodipine 10 mg tablet 5 mg PO DAILY mupirocin 2 % ointment 1 applic TOPICAL PRN PRN (Reason: Skin Irritation) prednisone 5 mg tablet 5 mg PO DAILY pantoprazole 40 mg tablet,delayed release (DR/EC) 40 mg PO BID hydroxychloroquine 200 mg tablet 200 mg PO BID clobetasol 0.05 % cream 1 applic topical BID PRN (Reason: rash) potassium chloride [Klor-Con 10] 10 mEq tablet extended release 10 meq PO DAILY PRN (Reason: while on lasix) Eliquis 5 mg tablet 5 mg PO BID cyanocobalamin (vitamin B-12) 1,000 mcg/mL solution 1,000 mcg IM Q30D Discharge Orders: Discharge ED (Routine); Ordered 08/22/24 Ordered By: Christianne Silva Referrals: Randee Klein PA [Primary Care Provider, [facility]] Patient Instructions: Opioid Safety, Pain Management Activity Restrictions/Additional Instructions: As we discussed, especially given your history of orthostatic hypotension, you need to be doing the rule of 5s that we talked about extensively. We discussed using your pain medication sparingly and starting with a half a tablet. We did discuss the risks of this medication. 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
[2024-08-22 10:02] LABS: Basophils % 0.1 %; Hematocrit 38.1 % (36-47); Lymphocytes # 0.3 10^3/uL (0.8-4.8); Mean Corpuscular HGB Conc 33.9 g/dL (30-55); Mean Corpuscular Hemoglobin 34.4 pg (27-33); Mean Corpuscular Volume 101.6 fl (85-98); Mean Platelet Volume 10.7 fL (7.4-10.4); Monocytes # 0.2 10^3/uL (0.2-0.9); Monocytes % 2.2 %; Neutrophils # 6.26 10^3/uL (1.8-7.7); Neutrophils % 92.3 %; Nucleated Red Blood Cells % 0 %; Platelet Count 146 10^3/cmm (157-399); Red Blood Count 3.75 10^6/uL (3.85-5.65); Red Cell Distribution Width 13.3 % (12.1-15.1); White Blood Count 6.79 10^3/uL (3.29-11.43)
--- NOTE | 2024-08-22 10:08 | CT_ITS ---
WS: [id number] CT scan of the head, 08/22/2024 Clinical Data: dizziness Comparison: CT head, 06/20/2024 DLP: 978.[address] scans at [facility] use at least one of these dose optimization techniques: automated exposure control; mA and/or kV adjustment per patient size (includes targeted exams where dose is matched to clinical indication); or iterative reconstruction. Findings: The ventricular system is minimally dilated without shift. No recent infarct or hemorrhage is seen. There are no abnormal intracerebral masses. The cerebellum and brainstem are not remarkable. Bony windows of the skull and skull base show no fractures or erosions. The mastoid air cells, internal auditory canals, sella turcica, intraorbital contents, and paranasal sinuses are unremarkable. CT/CT head wo con* [id number] Impression: Negative CT scan of the head
[2024-08-22 10:17] VITALS: BP 150/94; PULSE 102; O2SAT 93
[2024-08-22 10:35] LABS: Alanine Aminotransferase 10 U/L (0-33); Albumin Level 3.8 g/dL (3.5-5.2); Alkaline Phosphatase 119 U/L (35-105); Anion Gap 19.8 (5-19); Aspartate Amino Transferase 28 U/L (0-32); Blood Urea Nitrogen 22 mg/dL (8-23); Calcium 8.8 mg/dL (8.5-10.5); Carbon Dioxide 31 mmol/L (22-29); Chloride 84 mmol/L (98-107); Globulin 2.8 g/dL (1.3-4.6); Glomerular Filtration Rate 73.2 mL/min (90-130); Glucose 139 mg/dL (65-115); NT Pro B Type Natriuretic Pept 373 pg/mL (0-125); Osmolality Calculated 278 mOsm/kg (285-295); Potassium 3.8 mmol/L (3.5-5.1); Sodium 131 mmol/L (136-145); Total Bilirubin 1.4 mg/dL (0.15-1.2); Total Protein 6.6 g/dL (6.6-8.7)
[2024-08-22] MEDS: sodium chloride 0.9% 500 ML IV (10:44)
[2024-08-22 10:45] VITALS: BP 156/101; PULSE 99; O2SAT 99
[2024-08-22] MEDS: metoprolol tartrate 1 mg/1 mL SDV 5 mL 2.5 MG IVP ×2 (10:45→12:14)
[2024-08-22 11:36] LABS: Bilirubin Urine 1+ (Negative); Blood Urine Negative (Negative); Glucose Urine UA Negative (Normal); Ketones Urine Trace (Negative); Leukocyte Esterase Urine 1+ (Negative); Nitrate Urine Negative (Negative); Protein Urine 1+ (Negative); Urine Appearance Clear (CLEAR); pH Urine 6.5 (5-7)
[2024-08-22 11:38] LABS: Add Urine Microscopic? YES; Bacteria Urine None Seen /hpf; Hyaline Casts Urine 1.65 /lpf; RBC Urine 0-2 /hpf (0-2); Squamous Epithelial Cell Urine 0-5 /hpf (0-5); WBC Urine 0-5 /hpf (0-5)
[2024-08-22 11:59] LABS: Urine Color Orange (Yellow)
[2024-08-22] MEDS: meclizine 25 mg tablet PO (12:14)
[2024-08-22 13:10] VITALS: BP 157/98; PULSE 94; RESP 16; O2SAT 100
[2024-08-22 13:17] VITALS: BP 141/99; PULSE 89; RESP 16; O2SAT 96
== END 2024-08-22 13:20 | disposition home or self-care (01) ==
PROVIDERS: Emergency Provider Physician Assistant; PCP Physician Assistant
DX: M25.551 Pain in right hip (principal); R42 Dizziness and giddiness; K59.00 Constipation, unspecified; Z79.01 Long term (current) use of anticoagulants; I10 Essential (primary) hypertension
CPT/HCPCS: 36415; 70450; 71045; 80053; 81001; 83880; 85025; 93005; 96374; 96376; 99285; J3490; J7040; J8597

== ENCOUNTER 2024-08-26 09:48 | Oncology outpatient (recurring) (ONCR) | payer MEDICARE, SELFPAY ==
--- NOTE | 2024-08-25 12:45 | USCV_ITS ---
Alysa Goodman Age: 59 Gender: F : 1965 Exam Date: 08/25/2024 13:06 Ordering Phys: Marco Quintero MD Technologist: [facility] [place] [facility] [place]: History of DVT HISTORY: R/O DVT PROCEDURES: Venous duplex imaging was performed in bilateral lower extremities. The following venous structures were evaluated: common femoral vein, profunda vein, proximal portion of the greater saphenous vein, superficial femoral vein, and the popliteal vein. In addition, the posterior tibial and peroneal trunk were evaluated. FINDINGS: No evidence of DVT seen in any vessel visualized at this time. CONCLUSIONS No evidence of right lower extremity DVT. No evidence of left lower extremity DVT. Obey Levine MD (Electronically Signed) Final Date: 25 August 2024 13:53 S
== END 2024-09-22 23:59 | disposition home or self-care (01) ==
PROVIDERS: PCP Physician Assistant; Visit Provider Internal Medicine Rheumatology
DX: D47.2 Monoclonal gammopathy (principal); R03.0 Elevated blood-pressure reading, without diagnosis of hypertension; Z86.718 Personal history of other venous thrombosis and embolism
CPT/HCPCS: 93970; 99214